=== PATIENT | male | born 1930 | race Caucasian/White ===

== ENCOUNTER 2017-01-30 19:44 | Inpatient (IN) | payer MEDICAID, MEDICARE ==
[~2017-01-30] VITALS: Ht 182.9 cm; Wt 70.3 kg
[2017-01-30] MEDS ORDERED: IPRATROPIUM NEB FS 0.5 MG/2.5 ML AMPUL.NEB NEB ONE (20:00)
[2017-01-30] MEDS ORDERED: ALBUTEROL FS 2.5 MG/3 ML VIAL.NEB CONTNEB ONE (20:00)
[2017-01-30 20:14] LABS: BASOPHILS # (AUTO) 0.4 /CMM (0.0-0.2); BASOPHILS % (AUTO) 3.4 % (0.0-2.0); EOSINOPHILS # (AUTO) 0.1 /CMM (0.0-0.7); EOSINOPHILS % (AUTO) 0.7 % (0.0-6.0); HEMATOCRIT 46 % (39-51); HEMOGLOBIN 14.9 g/dL (13.5-17.5); LYMPHOCYTES # (AUTO) 1.1 /CMM (0.8-4.8); LYMPHOCYTES % (AUTO) 9.9 % (20.0-44.0); MEAN CORPUSCULAR HEMOGLOBIN 24 PG (26.0-33.0); MEAN CORPUSCULAR HGB CONC 32 g/dl (31.0-36.0); MEAN CORPUSCULAR VOLUME 73 fL (80-96); MONOCYTES # (AUTO) 1.1 /CMM (0.1-1.30); MONOCYTES % (AUTO) 10.3 % (2.0-12.0); NEUTROPHILS % (AUTO) 75.7 % (43.0-81.0); PLATELET COUNT (AUTO) 357 /CMM (150-450); RDW COEFFICIENT OF VARIATION 17.9 (11.5-15.0); RED BLOOD CELL COUNT(AUTO) 6.33 MIL/uL (4.5-6.0); WHITE BLOOD COUNT (AUTO) 10.7 K/uL (4.3-11.0)
[2017-01-30 20:19] LABS: CALCIUM, SERUM 8.4 mg/dL (8.5-10.1); CARBON DIOXIDE 23 mmol/L (21-32); CHLORIDE 106 mmol/L (98-107); CREATININE 1.3 mg/dL (0.6-1.3); GLUCOSE 124 mg/dL (74-106); POTASSIUM 4.1 mmol/L (3.5-5.1); SODIUM SERUM 137 mmol/L (136-145); UREA NITROGEN, BLOOD 22 mg/dL (7-18)
[2017-01-30] MEDS ORDERED: DIVA500T2 PO (20:21)
[2017-01-30] MEDS ORDERED: ATOR80TA PO (20:21)
[2017-01-30] MEDS ORDERED: FOLI1TAB16 PO (20:21)
[2017-01-30] MEDS ORDERED: CLON0.5T4 PO (20:21)
[2017-01-30] MEDS ORDERED: RANI150T8 PO (20:21)
[2017-01-30] MEDS ORDERED: LISI-607 PO (20:21)
[2017-01-30] MEDS ORDERED: ZOLP5TAB7 PO (20:21)
[2017-01-30] MEDS ORDERED: TAMS0.4C34 PO (20:21)
[2017-01-30] MEDS ORDERED: FINA5TAB11 PO (20:21)
[2017-01-30] MEDS ORDERED: DIVA500T7 PO (20:21)
[2017-01-30] MEDS ORDERED: CARV12.52 PO (20:21)
[2017-01-30] MEDS ORDERED: DOCU-270 PO (20:21)
[2017-01-30] MEDS ORDERED: DONE10TA44 PO (20:21)
[2017-01-30 20:22] LABS: INR 1.25 (0.87-1.13); PROTHROMBIN TIME 13.2 SECS (9.5-12.7)
[2017-01-30 20:24] LABS: ALANINE AMINOTRANSFERASE 6 U/L (12-78); ALBUMIN 2.5 g/dL (3.4-5.0); ALKALINE PHOSPHATASE 71 U/L (46-116); ASPARTATE AMINOTRANSFERASE 15 U/L (15-37); BILIRUBIN,DIRECT 0.2 mg/dL (0.0-0.2); BILIRUBIN,TOTAL 1.1 mg/dL (0.2-1.0); TOTAL PROTEIN, SERUM 7.3 g/dL (6.4-8.2)
[2017-01-30 20:26] LABS: TROPONIN I 0.178 ng/mL (0.00-0.056)
[2017-01-30 20:55] LABS: BAND % (MANUAL) 5 % (0.0-5.0); EOSINOPHILS % (MANUAL) 1 % (0-4); LYMPHOCYTES % (MANUAL) 5 % (16-48); MONOCYTES % (MANUAL) 10 % (0-11.0); NEUTROPHILS % (MANUAL) 79 (42-76)
[2017-01-30] MEDS ORDERED: VANCOMYCIN 1 GM in IV D5W 250 ML IV ONE (21:00)
[2017-01-30] MEDS ORDERED: CEFEPIME 1 GM in IV D5W 50 ML IV ONE (21:00)
[2017-01-30] MEDS ORDERED: ASPIRIN 325 MG TABLET PO ONE (21:00)
[2017-01-30] MEDS ORDERED: ASPIRIN 325 MG TABLET ONE (22:05)
[2017-01-30] MEDS ORDERED: IV SET PRIMARY PUMP SET 1 EA INFUS.SET MC ONE (22:05)
[2017-01-30] MEDS ORDERED: DIVALPROEX SODIUM 250 MG TABLET.DR PO ONE ×2 (22:52→23:30)
[2017-01-30 23:03] LABS: APPEARANCE,URINE CLOUDY (CLEAR); BILIRUBIN,URINE 1+ (NEGATIVE); BLOOD, URINE 3+ Ery/uL (NEGATIVE); COLOR,URINE DARK YELLO (YELLOW); KETONES,URINE NEGATIVE (NEGATIVE); LEUKOCYTE ESTERASE ,URINE 2+ (NEGATIVE); NITRITE, URINE POSITIVE (NEGATIVE); PROTEIN,URINE 2+ mg/dl (NEGATIVE); UGLUCOSE NEGATIVE (NEGATIVE)
[2017-01-30 23:10] LABS: BACTERIA,URINE Rare /HPF (None Seen); WBC,URINE 81-100 /HPF (0-3)
[2017-01-30 23:11] LABS: SQUAMOUS EPITHELIAL CELL,UR Rare /HPF (None Seen)
[2017-01-30] MEDS ORDERED: ALBUTEROL FS 2.5 MG/3 ML VIAL.NEB ONE (23:29)
[2017-01-30] MEDS ORDERED: ENOXAPARIN SODIUM 30 MG/0.3 ML DISP.SYRIN SQ SCH (23:30)
[2017-01-30] MEDS ORDERED: ACETAMINOPHEN 325 MG TABLET PO PRN (23:30)
[2017-01-30] MEDS ORDERED: HYDROCODONE/APAP 5/325MG 1 EACH TABLET PO PRN (23:30)
[2017-01-30] MEDS ORDERED: MAGNESIUM HYDROXIDE 30 ML UDC PO PRN (23:30)
[2017-01-30] MEDS ORDERED: Z GUARD REMEDY 2 OZ OINT TP PRN (23:30)
[2017-01-30] MEDS ORDERED: MAG HYDROX/AL HYDROX/SIMETH 30 ML UDC PO PRN (23:30)
[2017-01-30] MEDS ORDERED: ONDANSETRON HCL/PF 4 MG/2 ML VIAL IVP PRN (23:30)
[2017-01-31] MEDS ORDERED: ENOXAPARIN SODIUM 30 MG/0.3 ML DISP.SYRIN ONE (00:01)
[2017-01-31] MEDS ORDERED: FUROSEMIDE 40 MG/4 ML VIAL ONE (00:01)
[2017-01-31] MEDS: DIVALPROEX SODIUM 500 MG TABLET.DR PO SCH ×5 (00:02→22:01)
[2017-01-31] MEDS: FUROSEMIDE 40 MG/4 ML VIAL IV SCH ×3 (00:07→18:52)
[2017-01-31] MEDS ORDERED: CEFTRIAXONE 1 G VIAL ONE (02:33)
[2017-01-31] MEDS ORDERED: IV D5W 50 ML IV ONE (02:33)
[2017-01-31] MEDS ORDERED: IV NS 0.9% 250 ML IV ONE (02:36)
[2017-01-31] MEDS ORDERED: IV SET PRIMARY PUMP SET 1 EA INFUS.SET MC ONE (02:36)
[2017-01-31] MEDS ORDERED: SECONDARY IV SET 1 EA INFUS.SET MC ONE (02:36)
[2017-01-31] MEDS: CEFTRIAXONE 1 G in IV D5W 50 ML IV SCH (02:49)
[2017-01-31] MEDS ORDERED: ALBUTEROL FS 2.5 MG/3 ML VIAL.NEB ONE (03:11)
[2017-01-31] MEDS: ALBUTEROL FS 2.5 MG/3 ML VIAL.NEB NEB SCH ×7 (03:21→23:35)
[2017-01-31 04:00] VITALS: BP 90/53
[2017-01-31 04:43] LABS: ABG BASE EXCESS -0.8 mmol/L; ABG OXYGEN SATURATION 94.3 % (92.0-98.5); ABG PCO2 25.3 mmHg (35.0-45.0); ABG PH 7.519 (7.350-7.450); AaDO2 97.8 mmHg; MetHb 0.3 % (0.0-1.5); O2Hb 93.1 % (94.0-97.0); SITE, ABG Left Radial; VENT MODE, BG NASAL CANNULA
[2017-01-31] MEDS ORDERED: ENOXAPARIN SODIUM 30 MG/0.3 ML DISP.SYRIN SQ SCH (07:22)
[2017-01-31 07:30] LABS: BASOPHILS # (AUTO) 0.1 /CMM (0.0-0.2); BASOPHILS % (AUTO) 0.5 % (0.0-2.0); EOSINOPHILS # (AUTO) 0.2 /CMM (0.0-0.7); EOSINOPHILS % (AUTO) 1.5 % (0.0-6.0); HEMATOCRIT 44 % (39-51); HEMOGLOBIN 14.3 g/dL (13.5-17.5); LYMPHOCYTES # (AUTO) 1.2 /CMM (0.8-4.8); LYMPHOCYTES % (AUTO) 10.3 % (20.0-44.0); MEAN CORPUSCULAR HEMOGLOBIN 24 PG (26.0-33.0); MEAN CORPUSCULAR HGB CONC 33 g/dl (31.0-36.0); MEAN CORPUSCULAR VOLUME 74 fL (80-96); MONOCYTES # (AUTO) 1.2 /CMM (0.1-1.30); MONOCYTES % (AUTO) 10.3 % (2.0-12.0); NEUTROPHILS # (AUTO) 8.7 /CMM (1.8-8.9); NEUTROPHILS % (AUTO) 77.4 % (43.0-81.0); PLATELET COUNT (AUTO) 339 /CMM (150-450); RDW COEFFICIENT OF VARIATION 19.4 (11.5-15.0); RED BLOOD CELL COUNT(AUTO) 5.93 MIL/uL (4.5-6.0); WHITE BLOOD COUNT (AUTO) 11.3 K/uL (4.3-11.0)
[2017-01-31 08:00] VITALS: BP_SYST 110; BP_SYST 87; BP_DIAS 51; BP_DIAS 67
[2017-01-31 08:00] LABS: CALCIUM, SERUM 8.1 mg/dL (8.5-10.1); CARBON DIOXIDE 25 mmol/L (21-32); CHLORIDE 107 mmol/L (98-107); CREATININE 1.4 mg/dL (0.6-1.3); GLUCOSE 101 mg/dL (74-106); MAGNESIUM 1.9 mg/dL (1.8-2.4); SODIUM SERUM 142 mmol/L (136-145); UREA NITROGEN, BLOOD 22 mg/dL (7-18)
[2017-01-31 08:18] LABS: THYROID STIMULATING HORMONE 1.25 uIU/mL (0.358-3.74)
[2017-01-31 08:34] LABS: BAND % (MANUAL) 2 % (0.0-5.0); EOSINOPHILS % (MANUAL) 2 % (0-4); LYMPHOCYTES % (MANUAL) 14 % (16-48); MONOCYTES % (MANUAL) 9 % (0-11.0); NEUTROPHILS % (MANUAL) 73 (42-76)
[2017-01-31 12:00] VITALS: BP 122/67
[2017-01-31] MEDS: TAMSULOSIN 0.4 MG CAP.SR.24H PO SCH (12:31)
[2017-01-31] MEDS: DOCUSATE SODIUM 100 MG CAPSULE PO SCH ×2 (12:31→18:53)
[2017-01-31] MEDS: CARVEDILOL 12.5 MG TABLET PO SCH ×2 (12:32→18:53)
[2017-01-31] MEDS: FINASTERIDE (5 MG) 5 MG TABLET PO SCH (12:33)
[2017-01-31] MEDS: FOLIC ACID 1 MG TABLET PO SCH (12:33)
[2017-01-31] MEDS: PANTOPRAZOLE 40 MG TABLET.DR PO SCH (12:33)
[2017-01-31] MEDS: FAMOTIDINE (20 MG) 20 MG TABLET PO SCH (12:33)
[2017-01-31] MEDS: LISINOPRIL (5MG) 5 MG TABLET PO SCH (12:38)
[2017-01-31 16:00] VITALS: BP 100/62
[2017-01-31 19:07] VITALS: BP 110/62
[2017-01-31 20:00] VITALS: BP 111/65
[2017-01-31] MEDS: ZOLPIDEM TARTRATE 5 MG TABLET PO SCH (22:00)
[2017-01-31] MEDS: DONEPEZIL 5 MG TABLET PO SCH (22:00)
[2017-01-31] MEDS ORDERED: ATORVASTATIN 40 MG TABLET PO SCH (22:00)
[2017-01-31] MEDS: clonazePAM 0.5 MG TABLET PO SCH ×2 (22:01)
[2017-02-01] VITALS (7 sets, daily range): BP systolic 89–122; BP diastolic 53–70
[2017-02-01] MEDS: CEFTRIAXONE 1 G in IV D5W 50 ML IV SCH (02:15)
[2017-02-01] MEDS ORDERED: IV NS 0.9% 250 ML IV ONE (02:16)
[2017-02-01] MEDS: ALBUTEROL FS 2.5 MG/3 ML VIAL.NEB NEB SCH ×6 (03:32→23:24)
[2017-02-01 07:31] LABS: EOSINOPHILS # (AUTO) 0.1 /CMM (0.0-0.7); EOSINOPHILS % (AUTO) 0.8 % (0.0-6.0); HEMATOCRIT 45 % (39-51); HEMOGLOBIN 14.7 g/dL (13.5-17.5); LYMPHOCYTES # (AUTO) 0.7 /CMM (0.8-4.8); LYMPHOCYTES % (AUTO) 6.3 % (20.0-44.0); MEAN CORPUSCULAR HEMOGLOBIN 24 PG (26.0-33.0); MEAN CORPUSCULAR HGB CONC 33 g/dl (31.0-36.0); MEAN CORPUSCULAR VOLUME 74 fL (80-96); MONOCYTES # (AUTO) 0.9 /CMM (0.1-1.30); MONOCYTES % (AUTO) 7.5 % (2.0-12.0); NEUTROPHILS # (AUTO) 10.1 /CMM (1.8-8.9); NEUTROPHILS % (AUTO) 85.4 % (43.0-81.0); PLATELET COUNT (AUTO) 385 /CMM (150-450); RDW COEFFICIENT OF VARIATION 19.2 (11.5-15.0); RED BLOOD CELL COUNT(AUTO) 6.11 MIL/uL (4.5-6.0); WHITE BLOOD COUNT (AUTO) 11.8 K/uL (4.3-11.0)
[2017-02-01 08:05] LABS: CALCIUM, SERUM 8.2 mg/dL (8.5-10.1); CARBON DIOXIDE 25 mmol/L (21-32); CHLORIDE 105 mmol/L (98-107); CREATININE 1.2 mg/dL (0.6-1.3); GLUCOSE 106 mg/dL (74-106); PHOSPHORUS 3.5 mg/dL (2.5-4.9); POTASSIUM 3.8 mmol/L (3.5-5.1); SODIUM SERUM 142 mmol/L (136-145); UREA NITROGEN, BLOOD 25 mg/dL (7-18)
[2017-02-01] MEDS: DIVALPROEX SODIUM 500 MG TABLET.DR PO SCH ×4 (08:12→22:11)
[2017-02-01] MEDS: FAMOTIDINE (20 MG) 20 MG TABLET PO SCH (08:12)
[2017-02-01] MEDS: TAMSULOSIN 0.4 MG CAP.SR.24H PO SCH (08:12)
[2017-02-01] MEDS: LISINOPRIL (5MG) 5 MG TABLET PO SCH (08:13)
[2017-02-01] MEDS: CARVEDILOL 12.5 MG TABLET PO SCH ×2 (08:13→17:00)
[2017-02-01] MEDS: FINASTERIDE (5 MG) 5 MG TABLET PO SCH (08:13)
[2017-02-01] MEDS: PANTOPRAZOLE 40 MG TABLET.DR PO SCH (08:13)
[2017-02-01] MEDS: FOLIC ACID 1 MG TABLET PO SCH (08:13)
[2017-02-01] MEDS: DOCUSATE SODIUM 100 MG CAPSULE PO SCH ×2 (08:13→17:26)
[2017-02-01] MEDS: FUROSEMIDE 40 MG/4 ML VIAL IV SCH (08:14)
[2017-02-01 09:41] LABS: BAND % (MANUAL) 1 % (0.0-5.0); LYMPHOCYTES % (MANUAL) 10 % (16-48); MONOCYTES % (MANUAL) 8 % (0-11.0); NEUTROPHILS % (MANUAL) 81 (42-76)
[2017-02-01] MEDS: FUROSEMIDE 40 MG TABLET PO SCH ×2 (10:00→10:18)
[2017-02-01] MEDS: POTASSIUM CHLORIDE 20 MEQ TAB.PRT.SR PO SCH (10:18)
[2017-02-01 10:23] LABS: *SPE A/G RATIO 0.7 (0.7-1.7); *SPE ALBUMIN 2.9 g/dL (2.9-4.4); *SPE ALPHA-1-GLOBULIN 0.4 g/dL (0.0-0.4); *SPE M-SPIKE Not Observed g/dL (Not Observed); *SPE PROTEIN TOTAL 6.9 g/dL (6.0-8.5); *SPEGAMMA GLOBULIN 1.6 g/dL (0.4-1.8)
[2017-02-01] MEDS: ENOXAPARIN SODIUM 40 MG/0.4 ML DISP.SYRIN SQ SCH (20:36)
[2017-02-01] MEDS: MEROPENEM 1 G in IV NS 0.9% 100 ML IV SCH (20:37)
[2017-02-01] MEDS ORDERED: SECONDARY IV SET 1 EA INFUS.SET MC ONE (20:38)
[2017-02-01] MEDS: ZOLPIDEM TARTRATE 5 MG TABLET PO SCH (22:00)
[2017-02-01] MEDS: DONEPEZIL 5 MG TABLET PO SCH (22:11)
[2017-02-01] MEDS: clonazePAM 0.5 MG TABLET PO SCH (22:11)
[2017-02-02] VITALS (7 sets, daily range): BP systolic 92–126; BP diastolic 56–72
[2017-02-02] MEDS: ALBUTEROL FS 2.5 MG/3 ML VIAL.NEB NEB SCH ×6 (03:29→23:10)
[2017-02-02 06:43] LABS: BASOPHILS % (AUTO) 0.1 % (0.0-2.0); EOSINOPHILS % (AUTO) 0.2 % (0.0-6.0); HEMATOCRIT 46 % (39-51); HEMOGLOBIN 14.5 g/dL (13.5-17.5); LYMPHOCYTES # (AUTO) 0.5 /CMM (0.8-4.8); LYMPHOCYTES % (AUTO) 4.8 % (20.0-44.0); MEAN CORPUSCULAR HEMOGLOBIN 23 PG (26.0-33.0); MEAN CORPUSCULAR HGB CONC 32 g/dl (31.0-36.0); MEAN CORPUSCULAR VOLUME 74 fL (80-96); MONOCYTES # (AUTO) 1.1 /CMM (0.1-1.30); MONOCYTES % (AUTO) 10.1 % (2.0-12.0); NEUTROPHILS # (AUTO) 9.2 /CMM (1.8-8.9); NEUTROPHILS % (AUTO) 84.8 % (43.0-81.0); PLATELET COUNT (AUTO) 410 /CMM (150-450); RDW COEFFICIENT OF VARIATION 19.5 (11.5-15.0); RED BLOOD CELL COUNT(AUTO) 6.18 MIL/uL (4.5-6.0); WHITE BLOOD COUNT (AUTO) 10.8 K/uL (4.3-11.0)
[2017-02-02 07:07] LABS: ALANINE AMINOTRANSFERASE 12 U/L (12-78); ALBUMIN 2.2 g/dL (3.4-5.0); ALKALINE PHOSPHATASE 75 U/L (46-116); ASPARTATE AMINOTRANSFERASE 15 U/L (15-37); BILIRUBIN,TOTAL 0.9 mg/dL (0.2-1.0); CALCIUM, SERUM 8.2 mg/dL (8.5-10.1); CARBON DIOXIDE 30 mmol/L (21-32); CHLORIDE 104 mmol/L (98-107); CREATININE 1.1 mg/dL (0.6-1.3); GLUCOSE 118 mg/dL (74-106); MAGNESIUM 2.3 mg/dL (1.8-2.4); POTASSIUM 3.8 mmol/L (3.5-5.1); SODIUM SERUM 140 mmol/L (136-145); TOTAL PROTEIN, SERUM 7.1 g/dL (6.4-8.2); UREA NITROGEN, BLOOD 27 mg/dL (7-18)
[2017-02-02 08:50] LABS: BAND % (MANUAL) 1 % (0.0-5.0); EOSINOPHILS % (MANUAL) 1 % (0-4); LYMPHOCYTES % (MANUAL) 9 % (16-48); MONOCYTES % (MANUAL) 6 % (0-11.0); NEUTROPHILS % (MANUAL) 83 (42-76)
[2017-02-02] MEDS: MEROPENEM 1 G in IV NS 0.9% 100 ML IV SCH ×2 (09:55→21:15)
[2017-02-02] MEDS: PANTOPRAZOLE 40 MG TABLET.DR PO SCH (09:55)
[2017-02-02] MEDS: TAMSULOSIN 0.4 MG CAP.SR.24H PO SCH (09:57)
[2017-02-02] MEDS: FINASTERIDE (5 MG) 5 MG TABLET PO SCH (09:57)
[2017-02-02] MEDS: POTASSIUM CHLORIDE 20 MEQ TAB.PRT.SR PO SCH (09:57)
[2017-02-02] MEDS: DIVALPROEX SODIUM 500 MG TABLET.DR PO SCH ×4 (09:57→21:16)
[2017-02-02] MEDS: FUROSEMIDE 40 MG TABLET PO SCH (09:57)
[2017-02-02] MEDS: FAMOTIDINE (20 MG) 20 MG TABLET PO SCH (09:57)
[2017-02-02] MEDS: DOCUSATE SODIUM 100 MG CAPSULE PO SCH ×2 (09:57→18:00)
[2017-02-02] MEDS: FOLIC ACID 1 MG TABLET PO SCH (09:57)
[2017-02-02] MEDS: CARVEDILOL 12.5 MG TABLET PO SCH ×2 (09:57→18:00)
[2017-02-02] MEDS: LISINOPRIL (5MG) 5 MG TABLET PO SCH (09:58)
[2017-02-02] MEDS: ZOLPIDEM TARTRATE 5 MG TABLET PO SCH (21:16)
[2017-02-02] MEDS: clonazePAM 0.5 MG TABLET PO SCH (21:16)
[2017-02-02] MEDS: DONEPEZIL 5 MG TABLET PO SCH (21:16)
[2017-02-02] MEDS: ENOXAPARIN SODIUM 40 MG/0.4 ML DISP.SYRIN SQ SCH (21:17)
[2017-02-03] VITALS (7 sets, daily range): BP systolic 97–108; BP diastolic 49–67
[2017-02-03] MEDS: ALBUTEROL FS 2.5 MG/3 ML VIAL.NEB NEB SCH ×6 (02:33→23:30)
[2017-02-03] MEDS ORDERED: IV NS 0.9% 250 ML IV ONE (04:57)
[2017-02-03] MEDS: PANTOPRAZOLE 40 MG TABLET.DR PO SCH (07:55)
[2017-02-03] MEDS: DIVALPROEX SODIUM 500 MG TABLET.DR PO SCH ×4 (07:56→22:02)
[2017-02-03] MEDS: FINASTERIDE (5 MG) 5 MG TABLET PO SCH (08:36)
[2017-02-03] MEDS: TAMSULOSIN 0.4 MG CAP.SR.24H PO SCH (08:36)
[2017-02-03] MEDS: FAMOTIDINE (20 MG) 20 MG TABLET PO SCH (08:36)
[2017-02-03] MEDS: FOLIC ACID 1 MG TABLET PO SCH (08:37)
[2017-02-03] MEDS: CARVEDILOL 12.5 MG TABLET PO SCH ×2 (08:37→16:58)
[2017-02-03] MEDS: FUROSEMIDE 40 MG TABLET PO SCH (08:37)
[2017-02-03] MEDS: DOCUSATE SODIUM 100 MG CAPSULE PO SCH ×2 (08:37→16:57)
[2017-02-03] MEDS: POTASSIUM CHLORIDE 20 MEQ TAB.PRT.SR PO SCH (08:37)
[2017-02-03] MEDS: LISINOPRIL (5MG) 5 MG TABLET PO SCH (08:38)
[2017-02-03] MEDS: MEROPENEM 1 G in IV NS 0.9% 100 ML IV SCH ×2 (09:00→22:01)
[2017-02-03] MEDS: clonazePAM 0.5 MG TABLET PO SCH (22:02)
[2017-02-03] MEDS: DONEPEZIL 5 MG TABLET PO SCH (22:02)
[2017-02-03] MEDS: ENOXAPARIN SODIUM 40 MG/0.4 ML DISP.SYRIN SQ SCH (22:03)
[2017-02-03] MEDS: ZOLPIDEM TARTRATE 5 MG TABLET PO SCH (22:03)
[2017-02-04 00:40] VITALS: BP 106/60
[2017-02-04] MEDS: ALBUTEROL FS 2.5 MG/3 ML VIAL.NEB NEB SCH ×5 (03:25→19:11)
[2017-02-04 04:15] VITALS: BP 107/56
[2017-02-04 08:00] VITALS: BP 102/62
[2017-02-04] MEDS: FAMOTIDINE (20 MG) 20 MG TABLET PO SCH (08:06)
[2017-02-04] MEDS: FOLIC ACID 1 MG TABLET PO SCH (08:06)
[2017-02-04] MEDS: DIVALPROEX SODIUM 500 MG TABLET.DR PO SCH (08:06)
[2017-02-04] MEDS: FUROSEMIDE 40 MG TABLET PO SCH (08:06)
[2017-02-04] MEDS: DOCUSATE SODIUM 100 MG CAPSULE PO SCH ×2 (08:06→16:42)
[2017-02-04] MEDS: PANTOPRAZOLE 40 MG TABLET.DR PO SCH (08:06)
[2017-02-04] MEDS: POTASSIUM CHLORIDE 20 MEQ TAB.PRT.SR PO SCH (08:06)
[2017-02-04] MEDS: TAMSULOSIN 0.4 MG CAP.SR.24H PO SCH (08:06)
[2017-02-04] MEDS: CARVEDILOL 12.5 MG TABLET PO SCH ×2 (08:07→16:43)
[2017-02-04] MEDS: MEROPENEM 1 G in IV NS 0.9% 100 ML IV SCH ×2 (08:07→20:10)
[2017-02-04] MEDS: LISINOPRIL (5MG) 5 MG TABLET PO SCH (08:07)
[2017-02-04] MEDS: FINASTERIDE (5 MG) 5 MG TABLET PO SCH (08:08)
[2017-02-04] MEDS: DIVALPROEX SODIUM 125 MG CAP.SPRINK PO SCH ×2 (11:59→16:42)
[2017-02-04 12:00] VITALS: BP 104/61
[2017-02-04] MEDS ORDERED: MERO1VIA IV (15:16)
[2017-02-04 16:00] VITALS: BP 113/65
[2017-02-04 20:00] VITALS: BP 104/62
[2017-02-04] MEDS ORDERED: DIVALPROEX SODIUM 125 MG CAP.SPRINK PO SCH (22:00)
== END 2017-02-04 20:56 | DRG 137 ==
LOC: ER 19:47 → TELE1 21:21
PROVIDERS: ADMIT Internal Medicine; ATTEND Internal Medicine
DX: J15.6 Pneumonia due to other Gram-negative bacteria (principal); I21.4 Non-ST elevation (NSTEMI) myocardial infarction; J96.01 Acute respiratory failure with hypoxia; G93.41 Metabolic encephalopathy; I50.21 Acute systolic (congestive) heart failure; R13.10 Dysphagia, unspecified; J15.9 Unspecified bacterial pneumonia; I11.0 Hypertensive heart disease with heart failure; F03.90 Unspecified dementia, unspecified severity, without behavioral disturbance, psychotic disturbance, mood disturbance, and anxiety; N39.0 Urinary tract infection, site not specified; Z95.1 Presence of aortocoronary bypass graft; F41.9 Anxiety disorder, unspecified; I25.10 Atherosclerotic heart disease of native coronary artery without angina pectoris; Z16.12 Extended spectrum beta lactamase (ESBL) resistance; N40.1 Benign prostatic hyperplasia with lower urinary tract symptoms; B96.20 Unspecified Escherichia coli [E. coli] as the cause of diseases classified elsewhere; F32.9 Major depressive disorder, single episode, unspecified; G40.909 Epilepsy, unspecified, not intractable, without status epilepticus; Z86.718 Personal history of other venous thrombosis and embolism; Z86.711 Personal history of pulmonary embolism
CPT/HCPCS: 36415; 36600; 71010-TC; 80048-TC; 80053-TC; 80061-TC; 80076-TC; 80164-TC; 81000-TC; 82306; 82803-TC; 83605-TC; 83735-TC; 83880; 84100-TC; 84155; 84165; 84439-TC; 84443-TC; 84484-TC; 85025-TC; 85730-TC; 87040-TC; 87081-TC; 87086-TC; 87186-TC; 92526; 92611-TC; 93307-TC; 94799-TC; A4606; A6403; J0692; J0696; J1650; J1940; J2185; J3370; J7030; J7050; J7060; Z7610

== ENCOUNTER 2017-02-16 13:54 | Inpatient (IN) | payer MEDICAID, MEDICARE ==
[~2017-02-16] VITALS: Ht 170.2 cm; Wt 70.3 kg
[~2017-02-16 13:54] MED LIST: ATOR80TA PO; CARV12.52 PO; CLON0.5T4 PO; DIVA500T2 PO; DIVA500T7 PO; DOCU-270 PO; DONE10TA44 PO; FINA5TAB11 PO; FOLI1TAB16 PO; LISI-607 PO; MERO1VIA IV; RANI150T8 PO; TAMS0.4C34 PO; ZOLP5TAB7 PO
--- NOTE | 2017-02-16 13:54 | NUR ---
ROSA M 89 FROM [facility] FOR SOB, RECTAL PALK=201.9 PATIENT IS BEING TREATED FOR PNA AND TAKING ZOSYN X 5 DAYS. PLACED ON MONITOR. AWAITING MD ORDER.
--- NOTE | 2017-02-16 14:00 | NUR ---
PT HAS MARTIN CATH FR 16 LUMBER HACKER .DR OTERO MADE AWARE
--- NOTE | 2017-02-16 14:00 | NUR ---
PT HAS RHAND #22 IV ACCESS CARCASS WASHER. STARTED LEFT HAND #20 IV ACCESS. BLOOD SAMPLE COLLECTED SENT TO LAB
[2017-02-16 14:29] LABS: BASOPHILS # (AUTO) 0.5 /CMM (0.0-0.2); BASOPHILS % (AUTO) 4.2 % (0.0-2.0); EOSINOPHILS % (AUTO) 0.4 % (0.0-6.0); HEMATOCRIT 42 % (39-51); HEMOGLOBIN 13.5 g/dL (13.5-17.5); LYMPHOCYTES # (AUTO) 1.3 /CMM (0.8-4.8); MEAN CORPUSCULAR HEMOGLOBIN 24 PG (26.0-33.0); MEAN CORPUSCULAR HGB CONC 32 g/dl (31.0-36.0); MEAN CORPUSCULAR VOLUME 73 fL (80-96); MONOCYTES # (AUTO) 0.4 /CMM (0.1-1.30); MONOCYTES % (AUTO) 3.7 % (2.0-12.0); NEUTROPHILS % (AUTO) 80.7 % (43.0-81.0); PLATELET COUNT (AUTO) 622 /CMM (150-450); RDW COEFFICIENT OF VARIATION 19.7 (11.5-15.0); RED BLOOD CELL COUNT(AUTO) 5.74 MIL/uL (4.5-6.0); WHITE BLOOD COUNT (AUTO) 12.2 K/uL (4.3-11.0)
[2017-02-16 14:34] LABS: CARBON DIOXIDE 25 mmol/L (21-32); CHLORIDE 104 mmol/L (98-107); CREATININE 1.8 mg/dL (0.6-1.3); GLUCOSE 163 mg/dL (74-106); SODIUM SERUM 139 mmol/L (136-145); UREA NITROGEN, BLOOD 40 mg/dL (7-18)
[2017-02-16 14:38] LABS: INR 1.2 (0.87-1.13); PROTHROMBIN TIME 12.6 SECS (9.5-12.7)
[2017-02-16 14:39] LABS: ALANINE AMINOTRANSFERASE 28 U/L (12-78); ALBUMIN 1.7 g/dL (3.4-5.0); ALKALINE PHOSPHATASE 88 U/L (46-116); ASPARTATE AMINOTRANSFERASE 42 U/L (15-37); BILIRUBIN,DIRECT 0.2 mg/dL (0.0-0.2); BILIRUBIN,TOTAL 0.5 mg/dL (0.2-1.0); TOTAL PROTEIN, SERUM 7.7 g/dL (6.4-8.2)
[2017-02-16 14:42] LABS: TROPONIN I 0.139 ng/mL (0.00-0.056)
--- NOTE | 2017-02-16 14:50 | NUR ---
URINE SAMPLE COLLECTED SENT TO LAB
[2017-02-16 14:55] LABS: APPEARANCE,URINE Cloudy (CLEAR); BILIRUBIN,URINE Negative (NEGATIVE); BLOOD, URINE Moderate Ery/uL (NEGATIVE); COLOR,URINE Yellow (YELLOW); KETONES,URINE Trace (NEGATIVE); LEUKOCYTE ESTERASE ,URINE Negative (NEGATIVE); NITRITE, URINE Negative (NEGATIVE); PH,URINE 5.5 (5.0-8.0); PROTEIN,URINE 100 mg/dl (NEGATIVE); UGLUCOSE Negative (NEGATIVE)
[2017-02-16] MEDS ORDERED: MEROPENEM 1,000 MG in IV NS 0.9% 100 ML IV ONE (15:00)
[2017-02-16] MEDS ORDERED: IV NS 0.9% 1,000 ML IV ONE ×2 (15:00→15:30)
[2017-02-16] MEDS ORDERED: IV SET PRIMARY PUMP SET 1 EA INFUS.SET MC ONE ×3 (15:02→16:14)
[2017-02-16] MEDS ORDERED: IV NS 0.9% 1,000 ML ONE ×2 (15:02→15:44)
--- NOTE | 2017-02-16 15:20 | NUR ---
CALLED NURSING SUP. FOR CHANG BED
[2017-02-16 15:29] LABS: WBC,URINE 0-2 /HPF (0-3)
--- NOTE | 2017-02-16 15:29 | NUR ---
CALLED DR.SHAUN ROSS (PCP), LEFT MESSAGE ON VOICEMAIL
[2017-02-16 15:30] LABS: URIC ACID CRYSTALS,URINE Many /HPF (None Seen)
[2017-02-16] MEDS ORDERED: VANCOMYCIN 1 GM in IV D5W 250 ML IV ONE ×2 (15:30→17:30)
[2017-02-16] MEDS ORDERED: IV NS 0.9% 250 ML IV ONE ×2 (15:30→16:14)
[2017-02-16 15:31] LABS: BACTERIA,URINE Moderate /HPF (None Seen); SQUAMOUS EPITHELIAL CELL,UR Rare /HPF (None Seen); YEAST,URINE Moderate /HPF (None Seen)
--- NOTE | 2017-02-16 15:46 | NUR ---
RECEIVED CALL FROM [facility] TRANSFER LINE, SPOKE WITH LATA, SHE ASKED ME TO FAX HER A FACESHEET TO [phone], PHONE NUMBER TO REACH HER IS [phone]
--- NOTE | 2017-02-16 15:58 | NUR ---
EPIC PAGED, DR.SIMONA Diaz COCKTAIL LOUNGE MANAGER
[2017-02-16 16:05] LABS: BAND % (MANUAL) 2 % (0.0-5.0); LYMPHOCYTES % (MANUAL) 5 % (16-48); MONOCYTES % (MANUAL) 5 % (0-11.0); NEUTROPHILS % (MANUAL) 88 (42-76)
--- NOTE | 2017-02-16 16:13 | NUR ---
GAVE REPORT TO LATASHA OVALLE TELE. ADMITTING DX SEPSIS . TRANSFER VIA ACLS PROTOCOL. DR DEWITT
[2017-02-16 16:40] VITALS: BP 109/55
--- NOTE | 2017-02-16 17:10 | NUR ---
Received patient from ER with Dx of sepsis, PNA. Vitals stable, saturation 98% on NRB mask, afebrile 97.9 HR 120's, Atrial Fib on the monitor. Breathing WNL, no distress. Lungs sound diminished on auscultation, patient coughing and encouraged to deep breath and cough, needs reinforcement. Patient alert but unable to assess orientation, patient speaks foreign language but able to say "no pain". Kept on non rebreather and ABG ordered. Skin intact, only perineal excoriation, sacral redness. Finished 2L NS started from ER with currently running vancomycin IVPB. Dr. Collado at bedside and evaluating the patient.
[2017-02-16] MEDS ORDERED: ONDANSETRON HCL/PF 4 MG/2 ML VIAL IVP PRN (17:30)
[2017-02-16] MEDS ORDERED: IV NS 0.9% 1,000 ML BAG IV ONE (17:30)
[2017-02-16] MEDS ORDERED: LORAZEPAM 1 MG TABLET PO PRN (17:30)
[2017-02-16] MEDS ORDERED: ZOLPIDEM TARTRATE 5 MG TABLET PO PRN (17:30)
[2017-02-16] MEDS ORDERED: FEE PK DOSING 1 MIN EA MC ONE (17:54)
[2017-02-16] MEDS: DIVALPROEX SODIUM 500 MG TABLET.DR PO SCH ×2 (18:00→21:12)
[2017-02-16] MEDS: ZOLPIDEM TARTRATE 5 MG TABLET PO SCH (18:00)
[2017-02-16 18:10] LABS: IRON, SERUM 40 ug/dl (50-175); TOTAL IRON BINDING CAPACITY 173 ug/dl (250-450)
[2017-02-16] MEDS ORDERED: SECONDARY IV SET 1 EA INFUS.SET MC ONE (18:22)
[2017-02-16] MEDS: PIPERACILLIN /TAZOBACTAM 3.375 G in IV D5W 50 ML IV SCH ×2 (18:27→23:38)
[2017-02-16] MEDS: FLUCONAZOLE IN NS 100 MG in PREMIX 1 EA IV SCH ×2 (18:29)
[2017-02-16 19:14] LABS: ABG BASE EXCESS 0.8 mmol/L; ABG OXYGEN SATURATION 93.1 % (92.0-98.5); ABG PCO2 32.6 mmHg (35.0-45.0); ABG PH 7.479 (7.350-7.450); ABG PO2 65.6 mmHg (75.0-100.0); COHb 0.9 % (0.5-1.5); MetHb 0.8 % (0.0-1.5); O2Hb 91.5 % (94.0-97.0); SITE, ABG Right Radial; VENT MODE, BG NASAL CANNULA
--- NOTE | 2017-02-16 19:18 | NUR ---
Patient placed on nasal cannula 6L for 2 hours and ABG done. result PH 7.47 po2 65.6 PCO2 32.6 HCO3 23.7. Patient now placed on face mask 7L. Saturation > 95%.
[2017-02-16 19:29] LABS: CALCIUM, SERUM 7.4 mg/dL (8.5-10.1); CARBON DIOXIDE 27 mmol/L (21-32); CHLORIDE 105 mmol/L (98-107); CREATININE 1.7 mg/dL (0.6-1.3); GLUCOSE 113 mg/dL (74-106); POTASSIUM 3.9 mmol/L (3.5-5.1); SODIUM SERUM 139 mmol/L (136-145); UREA NITROGEN, BLOOD 39 mg/dL (7-18)
[2017-02-16 19:35] LABS: ALANINE AMINOTRANSFERASE 28 U/L (12-78); ALBUMIN 1.5 g/dL (3.4-5.0); ALKALINE PHOSPHATASE 78 U/L (46-116); ASPARTATE AMINOTRANSFERASE 44 U/L (15-37); BILIRUBIN,DIRECT 0.1 mg/dL (0.0-0.2); BILIRUBIN,TOTAL 0.4 mg/dL (0.2-1.0)
--- NOTE | 2017-02-16 19:46 | NUR ---
CHANG RN NOTE LAB [facility] CALLED AND INFORMED ME THAT LACTIC ACID 2.1, PT IS GETTING NS IV FLUIDS SEPSIS PROTOCOL.
[2017-02-16 20:00] VITALS: BP 97/76
--- NOTE | 2017-02-16 20:00 | NUR ---
CHANG RN NOTE PT IN BED ASLEEP, AROUSABLE. UNCLEAR WHEN TALKS. ON FACE MASK O2 7L. NO DISTRESS OR DISOMFORT NOTED. DENIES PAIN. IVF NS INFUSING PER SEPSIS PROTOCOL NO S/S OF INFILTRATION NOTED. ON TELE UNCONTROLLED A FIB HR 110'S IN ISOLATION FOR ESBL URINE. ISOLATION PRECAUTIONS TAKEN. F/C INTACT AND PATENT DRAINING YELLOWISH COLOR URINE. REPOSITION HIM FOR SKIN MANAGEMENT AND WILL DO EVERY 2 HRS. SIDE RAILS UP X 3 AND CALL LIGHT WITHIN REACH. VSS. CONTINUE TO MONITOR HIM.
[2017-02-16] MEDS: DONEPEZIL 5 MG TABLET PO SCH (21:12)
[2017-02-16] MEDS: clonazePAM 0.5 MG TABLET PO SCH (21:13)
[2017-02-16] MEDS ORDERED: SIMVASTATIN 20 MG TABLET PO SCH (22:00)
--- NOTE | 2017-02-16 22:34 | NUR ---
CHANG RN NOTE PT NOTED LITTLE RESTLESS AND IN PAIN. UNABLE TO EXPLAIN WHERE. CONFUSED. MORPHINE SULFATE 2 MG IVP GIVEN. BP 111/80. CONTINUE TO MONITOR HIM. IVF NS INFUSING PER SEPSIS PROTOCOL. NO S/S OF INFILTRATION NOTED.
--- NOTE | 2017-02-16 23:00 | NUR ---
CHANG RN NOTE PAIN SUBSIDED BUT PT ON TELE A FIB HR KEPT ON GOING UP AND DOWN 151 HIGHEST. INFORMED WINDOW SHADE CLOTH SEWER MIGUEL, NO NEW ORDER GIVEN. CONTINUE TO MONITOR HIM.
[2017-02-16] MEDS: MORPHINE SULFATE INJ 2 MG/ML DISP.SYRIN IV PRN (23:35)
[2017-02-17] VITALS: BP 96/62
[2017-02-17 04:00] VITALS: BP 118/77
--- NOTE | 2017-02-17 05:00 | NUR ---
CHANG RN NOTE NOTED VERY LITTLE OUTPUT IN F/C, NO BLADDER DISTENTION NOTED. RASHID RIVERA INFORMED BLADDER SCAN DONE ONLY 300 ML NOTED ON THE SCAN. NO NEW ORDER RECEIVED FROM RASHID RIVERA.
[2017-02-17] MEDS: PIPERACILLIN /TAZOBACTAM 3.375 G in IV D5W 50 ML IV SCH (05:37)
--- NOTE | 2017-02-17 06:44 | NUR ---
CHANG RN NOTE PT IN BED ASLEEP, EASILY AROUSABLE. NO DISTRESS NOTED. DENIES PAIN. ON TELE A FIB UNCONTROLLED HR 122'S. F/C INTACT AND PATENT DRAINING YELLOWISH COLOR URINE. ALSO NOTE MARTIN CATH IS LEAKING. SOAKING CHUCKS NOTED. INCONTINENCE CARE GIVEN. SIDE RAILS UP X 2 AND CALL LIGHT WITHIN REACH. WILL ENDORSE TO DAY SHIFT NURSE FOR CONTINUE TO CARE.
--- NOTE | 2017-02-17 07:07 | NUR ---
CHANG RN NOTE REMOVED THE OLD F/C DUE TO NOTED ITS LEAKING. TRIED TO INSERT NEW F/C FR 16 BUT UNABLE. ENDORSE TO DAY SHIFT NURSE TO FOLLOW UP.
[2017-02-17 07:25] LABS: BASOPHILS % (AUTO) 0.1 % (0.0-2.0); EOSINOPHILS % (AUTO) 0.2 % (0.0-6.0); HEMATOCRIT 41 % (39-51); LYMPHOCYTES # (AUTO) 0.6 /CMM (0.8-4.8); LYMPHOCYTES % (AUTO) 2.8 % (20.0-44.0); MEAN CORPUSCULAR HEMOGLOBIN 24 PG (26.0-33.0); MEAN CORPUSCULAR HGB CONC 32 g/dl (31.0-36.0); MEAN CORPUSCULAR VOLUME 74 fL (80-96); MONOCYTES # (AUTO) 0.6 /CMM (0.1-1.30); NEUTROPHILS # (AUTO) 18.7 /CMM (1.8-8.9); NEUTROPHILS % (AUTO) 93.9 % (43.0-81.0); PLATELET COUNT (AUTO) 505 /CMM (150-450); RED BLOOD CELL COUNT(AUTO) 5.53 MIL/uL (4.5-6.0)
[2017-02-17] MEDS: DIVALPROEX SODIUM 500 MG TABLET.DR PO SCH ×4 (07:30→21:39)
[2017-02-17 07:43] LABS: AMYLASE 33 U/L (25-115); CALCIUM, SERUM 7.6 mg/dL (8.5-10.1); CARBON DIOXIDE 24 mmol/L (21-32); CHLORIDE 109 mmol/L (98-107); CREATININE 1.2 mg/dL (0.6-1.3); GLUCOSE 109 mg/dL (74-106); LIPASE 83 U/L (73-393); MAGNESIUM 2.6 mg/dL (1.8-2.4); PHOSPHORUS 3.4 mg/dL (2.5-4.9); POTASSIUM 3.9 mmol/L (3.5-5.1); SODIUM SERUM 142 mmol/L (136-145); UREA NITROGEN, BLOOD 34 mg/dL (7-18)
[2017-02-17 07:44] LABS: CHOLESTEROL 100 mg/dL (<200); LDL 71 mg/dL (0-99); TRIGLYCERIDES 127 mg/dL (30-150)
[2017-02-17 07:50] LABS: INR 1.25 (0.87-1.13); PROTHROMBIN TIME 13.6 SECS (9.5-12.7)
[2017-02-17] MEDS: DOCUSATE SODIUM 100 MG CAPSULE PO SCH ×2 (07:58→13:53)
[2017-02-17] MEDS: ASPIRIN 81 MG TAB.CHEW PO SCH (07:58)
[2017-02-17] MEDS: TAMSULOSIN 0.4 MG CAP.SR.24H PO SCH (07:58)
[2017-02-17] MEDS: FINASTERIDE (5 MG) 5 MG TABLET PO SCH (07:59)
[2017-02-17] MEDS: FOLIC ACID 1 MG TABLET PO SCH (07:59)
[2017-02-17 08:00] VITALS: BP 115/67
--- NOTE | 2017-02-17 08:00 | NUR ---
TD/RN AM SHIFT INITIAL NOTES RECEIVED PT ASLEEP IN BED, PT OPEN EYES, A/O X 1 CONFUSED. NO FEVER OR ACUTE CHANGE OF CONDITION NOTED. PT ON SIMPLE MASK WITH 7L O2, SATURATING @ 96%, LUNG SOUNDS DIMINISHED. ON TELE WITH UNCONTROLLED A-FIB, HR 114. IV SITE FLUSHED, PATENT WITH NO S/S OF INFECTION, SL. PT ON STRICT NPO STATUS PENDING SWALLOW EVALUATION. NOTED WITH MINIMUM BLEEDING ON TIP OF PENIS D/T TRAUMA FOR AN ATTEMPT TO PLACE MARTIN CATHETER (UNSUCCESSFUL) PM CHARGE NURSE AWARE. PT JUST RECEIVED AM BATH. PT IS COMFORTABLE AT THIS TIME. CL WITHIN REACHED, SAFETY MAINTAINED AND ISOLATION OBSERVED. ON GOING MONITORING.
[2017-02-17 08:06] LABS: HDL CHOLESTEROL < 10 mg/dL (40-60)
[2017-02-17 08:44] LABS: BAND % (MANUAL) 3 % (0.0-5.0); LYMPHOCYTES % (MANUAL) 5 % (16-48); MONOCYTES % (MANUAL) 3 % (0-11.0); NEUTROPHILS % (MANUAL) 89 (42-76)
[2017-02-17] MEDS ORDERED: Z GUARD REMEDY 2 OZ OINT TP SCH (09:00)
--- NOTE | 2017-02-17 09:42 | NUR ---
TD/RN ROUNDS - DR. DEWITT UPDATED PT'S CONDITION. PT SEEN & EXAMINED BY DR. DEWITT. NO NEW ORDERS RECEIVED AT THIS TIME. MONITORING CONTINUED.
[2017-02-17] MEDS ORDERED: MEROPENEM 1 G in IV NS 0.9% 100 ML IV SCH (10:00)
[2017-02-17] MEDS ORDERED: IV NS 0.9% 500 ML IV ONE (10:15)
[2017-02-17] MEDS ORDERED: IV SET PRIMARY PUMP SET 1 EA INFUS.SET MC ONE (10:15)
[2017-02-17] MEDS ORDERED: SECONDARY IV SET 1 EA INFUS.SET MC ONE ×2 (10:16→13:54)
[2017-02-17] MEDS: MEROPENEM 1 G in IV NS 0.9% 100 ML IV SCH ×2 (10:29→21:38)
--- NOTE | 2017-02-17 10:41 | NUR ---
TD/RN ROUNDS - DR. VERA INFORMED DR. VERA THAT PT HAS UNCONTROLLED A-FIB. PT WAS SEEN & EXAMINED BY MD, NO NEW ORDERS RECEIVED AT THIS TIME. MONITORING CONTINUED.
[2017-02-17] MEDS: CARVEDILOL 6.25 MG TABLET PO SCH ×2 (11:00→21:00)
[2017-02-17 12:00] VITALS: BP 110/70
[2017-02-17] MEDS: ZOLPIDEM TARTRATE 5 MG TABLET PO SCH (13:53)
[2017-02-17] MEDS: VANCOMYCIN 0.75 GM in IV D5W 250 ML IV SCH (13:56)
--- NOTE | 2017-02-17 15:00 | NUR ---
TD/RN ROUNDS PT HERBERT CARE PROVIDED AND REPOSITIONED. NO CHANGE OF CONDITION. MONITORING CONTINUED.
[2017-02-17 16:00] VITALS: BP_SYST 110; BP_SYST 113; BP_DIAS 70; BP_DIAS 73
[2017-02-17] MEDS ORDERED: VANCOMYCIN 1 GM in IV D5W 250 ML IV SCH (16:00)
[2017-02-17] MEDS: FLUCONAZOLE IN NS 100 MG in PREMIX 1 EA IV SCH ×2 (17:03)
--- NOTE | 2017-02-17 19:00 | NUR ---
TD/RN CRITICAL LAB RESULT NOTIFIED BY VENECIA OF LAB OF LACTIC ACID RESULT OF 2.3. CAN CLOSING MACHINE OPERATOR PRIMARY, RASHID COLLADO MADE AWARE, NO NEW ORDERS RECEIVED.
--- NOTE | 2017-02-17 19:24 | NUR ---
TD/RN AM SHIFT END NOTES ALL NEEDS MET, NO ACUTE CHANGE OF CONDITION DURING THE SHIFT. PT REMAINED ON NPO STATUS FOR SWALLOW EVALUATION. PT ENDORSED TO PM NURSE TO CONTINUE CARE. CL WITHIN REACHED, SAFETY MAINTAINED AND ISOLATION OBSERVED.
--- NOTE | 2017-02-17 19:30 | NUR ---
RN INITIAL NOTE RECEIVED PT IN NO ACUTE DISTRESS IN BED. PT IS CONFUSED. PT IS ON O2 VIA SIMPLE MASK @ 8LPM AND TOLERATING WELL WITH O2 SAT @ 98%. PT IS STRICT NPO AND AWAITING SWALLOW EVAL. PT IS NOT C/O ANY SOB, DIFFICULTY BREATHING OR PAIN AT THIS TIME. PT HAS LHAND 20G THAT IS CLEAN DRY INTACT AND PATENT, PT HAS R HAND 22G THAT IS CLEAN DRY INTACT AND PATENT. PT HAS ROSAURA MIDLINE THAT IS CLEAN DRY INTACT AND PATENT WITH NS @ TKO. BED IN LOW LOCK POSITION WITH RAILS UP X 2. CALL LIGHT WITHIN REACH AND ALL SAFETY MEASURES ENSURED AND CARRIED OUT.
[2017-02-17 20:00] VITALS: BP 114/63
--- NOTE | 2017-02-17 21:28 | NUR ---
RN NOTE INFORMED MIGUEL COLLADO LEGAL RESEARCHER ABOUT PT UNCONTROLLED AFIB. NO NEW ORDERS.
[2017-02-17] MEDS: DONEPEZIL 5 MG TABLET PO SCH (21:39)
[2017-02-17] MEDS: clonazePAM 0.5 MG TABLET PO SCH (21:39)
[2017-02-18] VITALS (35 sets, daily range): BP systolic 80–120; BP diastolic 44–79
[2017-02-18] MEDS: VANCOMYCIN 0.75 GM in IV D5W 250 ML IV SCH ×2 (01:36→17:18)
--- NOTE | 2017-02-18 06:41 | NUR ---
RN CLOSING NOTE PT REMAINS IN NO ACUTE DISTRESS IN BED BED. PT DID NOT HAVE ANY SIGNIFICANT CHANGE IN CONDITION DURING SHIFT. ALL NEEDS MET, ALL ORDERS CARRIED OUT. WILL ENDORSE TO AM RN FOR CONTINUITY OF CARE.
[2017-02-18 06:43] LABS: BASOPHILS % (AUTO) 0.1 % (0.0-2.0); EOSINOPHILS # (AUTO) 0.1 /CMM (0.0-0.7); EOSINOPHILS % (AUTO) 0.6 % (0.0-6.0); HEMATOCRIT 40 % (39-51); HEMOGLOBIN 12.5 g/dL (13.5-17.5); LYMPHOCYTES # (AUTO) 0.6 /CMM (0.8-4.8); LYMPHOCYTES % (AUTO) 4.2 % (20.0-44.0); MEAN CORPUSCULAR HEMOGLOBIN 23 PG (26.0-33.0); MEAN CORPUSCULAR HGB CONC 31 g/dl (31.0-36.0); MEAN CORPUSCULAR VOLUME 74 fL (80-96); MONOCYTES # (AUTO) 0.6 /CMM (0.1-1.30); MONOCYTES % (AUTO) 4.6 % (2.0-12.0); NEUTROPHILS # (AUTO) 12.1 /CMM (1.8-8.9); NEUTROPHILS % (AUTO) 90.5 % (43.0-81.0); PLATELET COUNT (AUTO) 538 /CMM (150-450); RDW COEFFICIENT OF VARIATION 21.9 (11.5-15.0); RED BLOOD CELL COUNT(AUTO) 5.41 MIL/uL (4.5-6.0); WHITE BLOOD COUNT (AUTO) 13.4 K/uL (4.3-11.0)
[2017-02-18] MEDS: DIVALPROEX SODIUM 500 MG TABLET.DR PO SCH ×4 (06:46→21:34)
[2017-02-18 07:43] LABS: CALCIUM, SERUM 7.9 mg/dL (8.5-10.1); CARBON DIOXIDE 22 mmol/L (21-32); CHLORIDE 112 mmol/L (98-107); CREATININE 1.2 mg/dL (0.6-1.3); GLUCOSE 110 mg/dL (74-106); MAGNESIUM 2.7 mg/dL (1.8-2.4); PHOSPHORUS 2.8 mg/dL (2.5-4.9); POTASSIUM 3.9 mmol/L (3.5-5.1); SODIUM SERUM 145 mmol/L (136-145); UREA NITROGEN, BLOOD 40 mg/dL (7-18)
--- NOTE | 2017-02-18 08:00 | NUR ---
Patient hava a right mottled, cold feet. unable to feel peripheral pulses. portable doppler, still unable to find pulse. informed Dr. Scanlon, ordered arterial doppler stat and vascular surgeon consult. Called radiology for stat doppler
--- NOTE | 2017-02-18 09:10 | NUR ---
Informed Dr. hare patient is still NPO and not receiving daily meds particularly Coreg. Currently Afib on 120's. Pending swallow eval
--- NOTE | 2017-02-18 09:20 | NUR ---
Informed Dr. Collado of Arterial doppler result.
[2017-02-18] MEDS: MEROPENEM 1 G in IV NS 0.9% 100 ML IV SCH ×2 (09:29→21:33)
[2017-02-18] MEDS ORDERED: ENOXAPARIN SODIUM 60 MG/0.6 ML DISP.SYRIN SQ SCH (09:30)
--- NOTE | 2017-02-18 10:05 | NUR ---
Per Speech therapist Sarah, patient needs to be kept NPO and can have medications crushed with apple sauce, thick liquid.
[2017-02-18 10:18] LABS: EOSINOPHILS % (MANUAL) 2 % (0-4); LYMPHOCYTES % (MANUAL) 7 % (16-48); MONOCYTES % (MANUAL) 2 % (0-11.0); NEUTROPHILS % (MANUAL) 89 (42-76)
[2017-02-18] MEDS: FINASTERIDE (5 MG) 5 MG TABLET PO SCH (10:27)
[2017-02-18] MEDS: FOLIC ACID 1 MG TABLET PO SCH (10:28)
[2017-02-18] MEDS: ASPIRIN 81 MG TAB.CHEW PO SCH (10:28)
[2017-02-18] MEDS: TAMSULOSIN 0.4 MG CAP.SR.24H PO SCH (10:28)
[2017-02-18] MEDS: DOCUSATE SODIUM 100 MG CAPSULE PO SCH ×2 (10:28→17:00)
[2017-02-18] MEDS: CARVEDILOL 6.25 MG TABLET PO SCH ×2 (10:28→21:00)
--- NOTE | 2017-02-18 10:43 | NUR ---
Dr. Collado at beside, updates given. Patient to be kept NPO for possible surgery. Waiting for vascular surgeon.
[2017-02-18] MEDS ORDERED: IOHEXOL-350 100 ML VIAL IV ONE ×3 (11:44→12:20)
[2017-02-18] MEDS ORDERED: IV NS 0.9% 250 ML IV ONE (11:44)
[2017-02-18] MEDS ORDERED: CT SWABBABLE VALVE TRANS SET 1 EA INFUS.SET MC ONE (11:44)
--- NOTE | 2017-02-18 11:50 | NUR ---
Patient brought to CT scan for angiogram of abdomen aorta run down.
[2017-02-18] MEDS ORDERED: CELLULOSE,OXIDIZED 1 EA PACK MC ONE (12:11)
[2017-02-18] MEDS ORDERED: LIDOCAINE HCL/PF 1% 30 ML SDV ONE (12:12)
[2017-02-18] MEDS ORDERED: THROMBIN (BOVINE) 5,000 UNITS VIAL TP ONE (12:12)
[2017-02-18] MEDS ORDERED: HEPARIN SODIUM, PORCINE 1,000 UNIT/ML VIAL ONE (12:12)
[2017-02-18] MEDS ORDERED: GELATIN SPONGE,ABSORBABLE 1 EA SPONGE TP ONE (12:13)
[2017-02-18] MEDS ORDERED: GELATIN SPONGE,ABSORBABLE 1 SPONGE SPONGE TP ONE (12:14)
[2017-02-18] MEDS ORDERED: IV NS 0.9% 1,000 ML IV PRN (12:30)
[2017-02-18 12:47] LABS: INR 1.27 (0.87-1.13); PROTHROMBIN TIME 13.8 SECS (9.5-12.7)
--- NOTE | 2017-02-18 13:14 | NUR ---
Patient left for Surgery. Unable to obtain consent, pending ordered procedure. Paged . Daughter was at bedside earlier, informed by Dr. Collado and Dr. Scanlon of pending procedure.
[2017-02-18] MEDS ORDERED: FENTANYL PF 250MCG/5ML AMPUL ONE (13:24)
[2017-02-18] MEDS ORDERED: ROCURONIUM BROMIDE 50 MG/5 ML ONE (13:25)
--- NOTE | 2017-02-18 13:42 | NUR ---
WOUND CARE CONSULT: PT PRESENTS WITH COLD PURPLE RT FOOT. DR TAYLOR IN ROOM TO EXAMINE PT. PT ALSO NOTED TO HAVE RASH TO INNER BUTTOCKS AND PERINEUM, PRESENT ON ADMISSION. RECOMMENDATIONS MADE FOR SKIN PROTECTION. DISCUSSED WITH NURSING STAFF. PT ON JOSE ISOFLEX LOW AIRLOSS BED. ALL SKIN PROTECTION MEASURES IN PLACE. MD IN AGREEMENT WITH PLAN OF CARE. Addendum: 02/18/17 at 1344 by CRUZ HARPER WNDNU Amended: Links added.
--- NOTE | 2017-02-18 13:43 | NUR ---
Consent given over phone by sinan. Daughter talked with Dr. Hartley.
[2017-02-18] MEDS ORDERED: HEPARIN SODIUM, PORCINE 5000 UNITS/1 ML VIAL ONE (14:15)
[2017-02-18] MEDS ORDERED: NOREPINEPHRINE 16 MG in IV D5W 500 ML IV PRN ×2 (14:30→18:00)
[2017-02-18] MEDS ORDERED: ANESTHESIA TRAY IN PYXIS 1 EA TRAY MC ONE ×2 (14:52→15:51)
[2017-02-18] MEDS ORDERED: CALCIUM CHLORIDE 1,000 MG/10 ML DISP.SYRIN ONE (15:06)
[2017-02-18] MEDS ORDERED: CALCIUM CHLORIDE 1,000 MG/10 ML DISP.SYRIN IV ONE (15:24)
[2017-02-18] MEDS ORDERED: EPINEPHRINE (1:10,000) SYRINGE 1 MG/10 ML DISP.SYRIN IVP ONE (15:26)
[2017-02-18] MEDS ORDERED: SODIUM BICARBONATE SYR 50 MEQ/50 ML DISP.SYRIN IV ONE (15:26)
--- NOTE | 2017-02-18 15:30 | NUR ---
ICU INITIAL NOTES RECEIVED PT POST CODE BLUE FROM OR, PT WAS RECEIVED INTUBATED 7.5 23CM@ LIP LINE TV 500 FIO2 100% PEEP 5 RATE 16, SATING 100%, NO S/S IF RESP. DISTRESS OR SOB NOTED AT THIS TIME, PT IS ON BEDSIDE MONITOR SHOWING A FIB @ 109 BPM, NO S/S OF CHEST PAIN OR DISCOMFORT, PT HAS PADS ON CHEST, PT IS NON RESPONSIVE, DOES NOT FOLLOW COMMANDS, PT HAS NO PULSE ON R FOOT, MOTTLED, AND VERY WEAK PULSE ON L FOOT, BOTH COLD TO THE TOUCH, PT HAS F/C DRAINING CLOUDY URINE TO GRAVITY, ROSAURA MIDLINE, C/D/I/PATENT, FLUSHING WELL, L WRIST ART LINE,C/D/I/PATENT, ZEROED, PT IS NOTED WITH DRESSING ON R CALF LEG, C/D/I, DR. TAYLOR, DR. WATSON AT BEDSIDE, DR. TAYLOR SPOKE WITH DAUGHTER REGARDING CODE AND UNSUCCESSFUL SURGERY, RESP CX, CXR, ABG, LABS TAKEN, DAUGHTER AWARE OF PT STATUS, WILL MONITOR PT CLOSELY Addendum: 02/19/17 at 0822 by JOVANNY JACKSON RN ADDED: PT HAS R CALF DRESSING C/D/I, UNABLE TO ACCESS SURGICAL INCISION, FIRST DRESSING CHANGE BY MD ONLY.
--- NOTE | 2017-02-18 16:25 | NUR ---
Report given to Pati OVALLE in ICU for cont of care
--- NOTE | 2017-02-18 16:30 | NUR ---
ICU NOTE PER PHARMACY, HEPARIN DRIP TO BE STARTED @ [address] T[address]LOR AND NO BOLUS NEEDED, PT RECEIVED LOVENOX IN THE AM
--- NOTE | 2017-02-18 16:30 | NUR ---
ICU NOTE DR. DEWITT NOTIFIED PT IS NOW IN ICU
[2017-02-18 16:32] LABS: ABG BASE EXCESS -6.6 mmol/L; ABG OXYGEN SATURATION 98.3 % (92.0-98.5); ABG PCO2 41.5 mmHg (35.0-45.0); ABG PH 7.292 (7.350-7.450); ABG PO2 158.6 mmHg (75.0-100.0); AaDO2 512.9 mmHg; O2Hb 96.3 % (94.0-97.0); PEEP,BG 5 cm H2O; SITE, ABG Right Radial; VT, ABG 500 mL
[2017-02-18] MEDS: CLOTRIMAZOLE 1% 15 GM TUBE TP SCH ×2 (17:00→17:18)
[2017-02-18] MEDS: ZOLPIDEM TARTRATE 5 MG TABLET PO SCH (17:52)
--- NOTE | 2017-02-18 18:42 | NUR ---
PT FROM O.R. ORALLY INTUBATED WITH SECURED AT 23CM SETTINGS ORDERED. ALARMS SET AND AUDIBLE ZERO DISTRESS NOTED AT THIS TIME. AMBU-BAG AT HEAD OF BED. Addendum: 02/18/17 at 1844 by SHANTEL PAREDES RT Amended: Links added.
[2017-02-18] MEDS: FLUCONAZOLE IN NS,PREMIX 200 MG in PREMIX 1 EA IV SCH ×2 (18:45)
[2017-02-18] MEDS: HEPARIN INFUSION/D5W 500 ML IV PRN (20:34)
--- NOTE | 2017-02-18 21:25 | NUR ---
RT PT RECEIVED INTUBATED WITH 7.5 @ 23CM LIP PATENT AND SECURE VIA ANCHOR FAST. VENT SETTING NOTED PER MD CRABTREE VERBAL ORDERS. ALARMS SET AND AUDIBLE. AMBU BAG AT [facility]. BI TECHNICAL LEAD DONE. VENT PLUGGED IN TO RED OUTLET. PT TOLERATING SETTING WELL. WILL CONTINUE TO MONITOR. Addendum: 02/18/17 at 2130 by MADISON RINCON RT Amended: Links added.
[2017-02-18] MEDS: DONEPEZIL 5 MG TABLET PO SCH (21:33)
[2017-02-18] MEDS: clonazePAM 0.5 MG TABLET PO SCH (21:34)
[2017-02-19] VITALS (49 sets, daily range): BP systolic 82–134; BP diastolic 41–93
[2017-02-19] MEDS: VANCOMYCIN 0.75 GM in IV D5W 250 ML IV SCH ×2 (02:06→14:45)
[2017-02-19 05:09] LABS: BASOPHILS % (AUTO) 0.1 % (0.0-2.0); HEMATOCRIT 36 % (39-51); HEMOGLOBIN 11.5 g/dL (13.5-17.5); LYMPHOCYTES # (AUTO) 0.7 /CMM (0.8-4.8); LYMPHOCYTES % (AUTO) 3.9 % (20.0-44.0); MEAN CORPUSCULAR HEMOGLOBIN 24 PG (26.0-33.0); MEAN CORPUSCULAR HGB CONC 32 g/dl (31.0-36.0); MEAN CORPUSCULAR VOLUME 74 fL (80-96); MONOCYTES # (AUTO) 0.8 /CMM (0.1-1.30); MONOCYTES % (AUTO) 4.3 % (2.0-12.0); NEUTROPHILS # (AUTO) 16.7 /CMM (1.8-8.9); NEUTROPHILS % (AUTO) 91.7 % (43.0-81.0); PLATELET COUNT (AUTO) 602 /CMM (150-450); RED BLOOD CELL COUNT(AUTO) 4.87 MIL/uL (4.5-6.0); WHITE BLOOD COUNT (AUTO) 18.3 K/uL (4.3-11.0)
[2017-02-19 05:27] LABS: CALCIUM, SERUM 9.4 mg/dL (8.5-10.1); CARBON DIOXIDE 21 mmol/L (21-32); CHLORIDE 116 mmol/L (98-107); CREATININE 1.4 mg/dL (0.6-1.3); GLUCOSE 118 mg/dL (74-106); MAGNESIUM 2.4 mg/dL (1.8-2.4); PHOSPHORUS 4.1 mg/dL (2.5-4.9); POTASSIUM 4.2 mmol/L (3.5-5.1); SODIUM SERUM 147 mmol/L (136-145); UREA NITROGEN, BLOOD 46 mg/dL (7-18)
[2017-02-19 05:46] LABS: BAND % (MANUAL) 2 % (0.0-5.0); LYMPHOCYTES % (MANUAL) 7 % (16-48); MONOCYTES % (MANUAL) 2 % (0-11.0); NEUTROPHILS % (MANUAL) 89 (42-76)
--- NOTE | 2017-02-19 06:00 | NUR ---
RESIDENCE DIRECTOR - REC'D PT. OBTUNDED/SEMICOMATOSE W/FAMILY AT BS. PUPILS ARE 3/BILAT.-NON-REACTIVE. NO REACTION TO NAILBED STIMULUS. +GAG/+COUGH WHEN SX'D. PT. DID TWITCH BOTH FEET W/PLANTAR DRIVES. POOR UOP/300 CC/12 HR. SHIFT. PT.HAS EEG SCHEDULED IN AM ALONG W/PSYCH CONSULT. CELIA GALLAGHER HAS 0.9%NS INFUSING AT 85 CC/HR, ALONG W/HEPARIN GTT. WHICH WAS STARTED AT 20:00PM LAST NIGHT AT 1250 UNITS/HR. PTT WAS AT 43 SEC. THIS AM & INFUSION WAS CHANGED TO 1400 UNITS/HR. LEVOPHED WAS ALSO STARTED FOR LABILE SBP'S. XOCHILT TO LEFT RADIAL IS VERY POSITIONAL. PT.HAS MOTTLED RT. FOOT W/NO PULSE INCLUDING DOPPLERS. DOPPLER PULSE IS WEAK, BUT AUDIBLE TO LEFT FOOT. FIO2 ON VENT HAS BEEN TITRATED DOWN TO 50%. CONT. POC.
[2017-02-19] MEDS: DIVALPROEX SODIUM 500 MG TABLET.DR PO SCH ×4 (07:30→21:33)
--- NOTE | 2017-02-19 08:15 | NUR ---
ICU/RN: DR HEARD AT BEDSIDE FOR NEURO CONSULT. PT NOTED WTIH + GAG/COUGH REFLEX, RESPONDS TO NAILBED STIMULI, PLANTAR REFLEXES +. ORDERS FOR EEG AND HEAD CT NOTED. SENIOR FINANCIAL REPORTING ACCOUNTANT UPDATED.
[2017-02-19] MEDS: ASPIRIN 81 MG TAB.CHEW PO SCH (08:29)
[2017-02-19] MEDS: FINASTERIDE (5 MG) 5 MG TABLET PO SCH (08:30)
[2017-02-19] MEDS: TAMSULOSIN 0.4 MG CAP.SR.24H PO SCH (08:30)
[2017-02-19] MEDS: FOLIC ACID 1 MG TABLET PO SCH (08:30)
[2017-02-19] MEDS: CARVEDILOL 6.25 MG TABLET PO SCH ×2 (08:30→21:00)
[2017-02-19] MEDS: DOCUSATE SODIUM 100 MG CAPSULE PO SCH ×2 (08:30→17:00)
[2017-02-19] MEDS: CLOTRIMAZOLE 1% 15 GM TUBE TP SCH ×2 (09:37→17:28)
[2017-02-19] MEDS: MEROPENEM 1 G in IV NS 0.9% 100 ML IV SCH ×2 (09:38→21:34)
--- NOTE | 2017-02-19 10:00 | NUR ---
ICU/RN: UMA GODFREY AT BEDSIDE. UPDATED ON PT STATUS - S/P CODE BLUE IN OR, CURRENTLY ON PRESSORS. DISCUSSED POC WITH DAUGHTER, AND WISHES "EVERYTHING TO BE DONE. I DON'T WANT TO CHANGE CODE STATUS JUST YET UNTIL I DISCUSS THIS WITH MY MOM AND I HAVE CT/EEG RESULTS." REMAINS FULL CODE.
--- NOTE | 2017-02-19 10:30 | NUR ---
ICU/RN: RECEIVED PTT RESULTS; NO CHANGE PER NON-ACS HEPARIN DRIP PROTOCOL. NEXT PTT DRAW TOMORROW 02/20/27 WITH AM LABS.
[2017-02-19 11:50] LABS: ABG BASE EXCESS -2.3 mmol/L; ABG OXYGEN SATURATION 97.1 % (92.0-98.5); ABG PCO2 30.4 mmHg (35.0-45.0); ABG PH 7.452 (7.350-7.450); ABG PO2 101.4 mmHg (75.0-100.0); AaDO2 112.8 mmHg; COHb 1.1 % (0.5-1.5); MetHb 0.8 % (0.0-1.5); O2Hb 95.3 % (94.0-97.0); PEEP,BG 5 cm H2O; SITE, ABG A-Line; VT, ABG 500 mL
--- NOTE | 2017-02-19 12:00 | NUR ---
ICU/RN: R NARE NGT INSERTED, PLACEMENT VERIFIED BY 2ND RN, JULIANNE German DORSALIS PEDIS PULSE AUSCULTATED VIA BESIDE DOPPLER. WEAK PULSE DETECTED, EXTREMITY IS COOL TO TOUCH. PT AWAKENS TO LIGHT TO PAINFUL STIMULI. ABLE TO MOVE LOWER EXTREMITIES.
[2017-02-19] MEDS: IV D5W 1,000 ML IV PRN (12:30)
[2017-02-19] MEDS: HEPARIN INFUSION/D5W 500 ML IV PRN (12:47)
--- NOTE | 2017-02-19 15:15 | NUR ---
ICU/RN: LARRY OPERATOR AT BEDSIDE.
--- NOTE | 2017-02-19 16:00 | NUR ---
ICU/RN: PT TAKEN TO HEAD CT VIA ACLS PROTOCOL, ACCOMPANIED BY RN, RT. TRANSPORTED BACK IN STABLE CONDITION.
[2017-02-19] MEDS: ZOLPIDEM TARTRATE 5 MG TABLET PO SCH (17:28)
[2017-02-19] MEDS: FLUCONAZOLE IN NS,PREMIX 200 MG in PREMIX 1 EA IV SCH ×2 (17:29)
[2017-02-19] MEDS: DONEPEZIL 5 MG TABLET PO SCH (21:32)
[2017-02-19] MEDS: clonazePAM 0.5 MG TABLET PO SCH (21:33)
[2017-02-20] VITALS (41 sets, daily range): BP systolic 58–119; BP diastolic 50–77
[2017-02-20] MEDS: IV D5W 1,000 ML IV PRN (00:13)
[2017-02-20] MEDS: VANCOMYCIN 0.75 GM in IV D5W 250 ML IV SCH ×2 (02:30→13:23)
--- NOTE | 2017-02-20 03:34 | NUR ---
CUSTOMER ENGINEER - PT. REMAINS VENTED W/VENT SETTINGS OF AC-16, TV-500, 35% & PEEP OF 5. PT.NEEDS ALITTLE MORE SXING THAN USUAL. LEFT RADIAL XOCHILT IS PATENT. ZERO'D & CALIBRATED Q 4 HRS. RUE PICC LINES HAS ALL PORTS PATENT TO FLUSH. HEPARIN GTT. CONT. AT 1400 UNITS/HR. & D5W AT 85CC/HR. NEURO CHECKS DONE FREQUENTLY. HEART MONITOR SHOWS UNCONT. AFIB. NIBP'S ARE SOMEWHAT COMPATIBLE W/XOCHILT PRESSURES. MARTIN CATH TO GRAVITY W/GOOD UOP. RT.NARE NGT IS CLAMPED.+ PLACEMENT AUSC. SKIN ISSUES NOTED. 21:00 MEDS HELD DUE TO NPO STATUS. COMP. BEDBATH ADM. W/ORAL,VENT,HERBERT & SKIN/WOUND CARE ADM. CONT.POC.
[2017-02-20 04:53] LABS: BASOPHILS % (AUTO) 0.3 % (0.0-2.0); EOSINOPHILS # (AUTO) 0.3 /CMM (0.0-0.7); HEMATOCRIT 34 % (39-51); LYMPHOCYTES # (AUTO) 0.7 /CMM (0.8-4.8); LYMPHOCYTES % (AUTO) 5.2 % (20.0-44.0); MEAN CORPUSCULAR HEMOGLOBIN 24 PG (26.0-33.0); MEAN CORPUSCULAR HGB CONC 32 g/dl (31.0-36.0); MEAN CORPUSCULAR VOLUME 74 fL (80-96); MONOCYTES # (AUTO) 0.5 /CMM (0.1-1.30); MONOCYTES % (AUTO) 3.6 % (2.0-12.0); NEUTROPHILS # (AUTO) 11.5 /CMM (1.8-8.9); NEUTROPHILS % (AUTO) 88.9 % (43.0-81.0); PLATELET COUNT (AUTO) 518 /CMM (150-450); RDW COEFFICIENT OF VARIATION 21.7 (11.5-15.0); RED BLOOD CELL COUNT(AUTO) 4.64 MIL/uL (4.5-6.0); WHITE BLOOD COUNT (AUTO) 12.9 K/uL (4.3-11.0)
[2017-02-20 04:58] LABS: CALCIUM, SERUM 8.1 mg/dL (8.5-10.1); CARBON DIOXIDE 22 mmol/L (21-32); CHLORIDE 111 mmol/L (98-107); CREATININE 1.3 mg/dL (0.6-1.3); GLUCOSE 184 mg/dL (74-106); POTASSIUM 3.7 mmol/L (3.5-5.1); SODIUM SERUM 141 mmol/L (136-145); UREA NITROGEN, BLOOD 41 mg/dL (7-18)
[2017-02-20 05:32] LABS: INR 1.41 (0.87-1.13); PROTHROMBIN TIME 15.4 SECS (9.5-12.7)
[2017-02-20 05:43] LABS: EOSINOPHILS % (MANUAL) 1 % (0-4); LYMPHOCYTES % (MANUAL) 6 % (16-48); MONOCYTES % (MANUAL) 8 % (0-11.0); NEUTROPHILS % (MANUAL) 84 (42-76); REACTIVE LYMPHOCYTES 1 % (0-0)
--- NOTE | 2017-02-20 07:15 | NUR ---
CULINARY INSTRUCTOR - DOPPLER PEDAL PULSE TO LEFT FOOT IS AUDIBLE. DOPPLER PULSE READINGS TO RT. FOOT ARE ZILCH. NOTHING AUDIBLE. RT. FOOT IS COLD TO TOUCH. PTT RESULT CAME BACK AT #58. ACCORDING TO DOSING CHART, WE ARE TO KEEP THE RATE OF 1400UNITS UNCHANGED. REPORT ENDORSED TO DINORAH OVALLE. CONT. POC.
[2017-02-20] MEDS: DIVALPROEX SODIUM 500 MG TABLET.DR PO SCH ×4 (07:30→21:54)
--- NOTE | 2017-02-20 07:40 | NUR ---
RT PATIENT REC'D ORALLY INTUBATED ON [facility] VENT WITH ORDERED SETTINGS LAURENCE WELL. VENT ALARMS CHECKED + AUDIBLE. VENT PLUGGED INTO RED OUTLET. DIM B/S HEARD. SX'D WITH SMALL AMT PALE SEMITHICK SECRETIONS. AMBU BAG AT [facility]. CONT CURRENT PLAN OF RESP CARE. Addendum: 02/20/17 at 1501 by NUHA BOCANEGRA RT Amended: Links added.
[2017-02-20] MEDS: HEPARIN INFUSION/D5W 500 ML IV PRN (07:56)
[2017-02-20] MEDS: ASPIRIN 81 MG TAB.CHEW PO SCH (09:00)
[2017-02-20] MEDS: TAMSULOSIN 0.4 MG CAP.SR.24H PO SCH (09:00)
[2017-02-20] MEDS: FINASTERIDE (5 MG) 5 MG TABLET PO SCH (09:00)
[2017-02-20] MEDS: DOCUSATE SODIUM 100 MG CAPSULE PO SCH (09:00)
[2017-02-20] MEDS: CARVEDILOL 6.25 MG TABLET PO SCH ×2 (09:00→21:56)
[2017-02-20] MEDS: FOLIC ACID 1 MG TABLET PO SCH (09:00)
--- NOTE | 2017-02-20 09:25 | NUR ---
THIRD MATE- Dr. Oliveira at bedside. Updated md on pt's condition. Asked md if we can start using the NGT. Per md, ok to start using NGT and start NGT feedings. FNS consult placed. Will continue to monitor.
[2017-02-20] MEDS: MEROPENEM 1 G in IV NS 0.9% 100 ML IV SCH ×2 (09:28→21:55)
[2017-02-20] MEDS: CLOTRIMAZOLE 1% 15 GM TUBE TP SCH ×2 (09:29→16:24)
[2017-02-20] MEDS ORDERED: BUMETANIDE INJ 2 MG in IV NS 0.9% 32 ML IV ONE (10:30)
--- NOTE | 2017-02-20 10:50 | NUR ---
DIPLOMATIC OFFICER- Spoke to washer off. Ok to start patient on tube feedings, Nutren Pulmonary @ 40 ml/hr and Prostat BID. Orders placed. Will continue to monitor.
[2017-02-20] MEDS: ALBUMIN 25% 25 GM in PREMIX 1 EA IV SCH ×3 (12:03→21:56)
[2017-02-20] MEDS: NUTREN PULMONARY 1,000 ML BAG NG PRN (15:23)
[2017-02-20] MEDS: DOCUSATE SODIUM LIQ 100 MG/10 ML UDC NG SCH (16:23)
[2017-02-20] MEDS: PROSOURCE / PROSTAT (PYXIS) 30 ML UDC NG SCH (16:24)
[2017-02-20] MEDS: FLUCONAZOLE IN NS,PREMIX 200 MG in PREMIX 1 EA IV SCH ×2 (17:27)
[2017-02-20] MEDS ORDERED: ZOLPIDEM TARTRATE 5 MG TABLET PO SCH (18:00)
[2017-02-20] MEDS: ZOLPIDEM TARTRATE 5 MG TABLET PO SCH (21:53)
[2017-02-20] MEDS: clonazePAM 0.5 MG TABLET PO SCH (21:54)
[2017-02-20] MEDS: DONEPEZIL 5 MG TABLET PO SCH (21:54)
[2017-02-21] VITALS (38 sets, daily range): BP systolic 82–139; BP diastolic 44–77
[2017-02-21] MEDS: VANCOMYCIN 0.75 GM in IV D5W 250 ML IV SCH ×2 (01:52→22:12)
[2017-02-21] MEDS: HEPARIN INFUSION/D5W 500 ML IV PRN ×2 (02:29→17:12)
[2017-02-21 05:06] LABS: BASOPHILS # (AUTO) 0.1 /CMM (0.0-0.2); BASOPHILS % (AUTO) 1.2 % (0.0-2.0); EOSINOPHILS # (AUTO) 0.5 /CMM (0.0-0.7); EOSINOPHILS % (AUTO) 5.4 % (0.0-6.0); HEMATOCRIT 30 % (39-51); HEMOGLOBIN 9.8 g/dL (13.5-17.5); LYMPHOCYTES # (AUTO) 0.5 /CMM (0.8-4.8); LYMPHOCYTES % (AUTO) 5.3 % (20.0-44.0); MEAN CORPUSCULAR HEMOGLOBIN 24 PG (26.0-33.0); MEAN CORPUSCULAR HGB CONC 33 g/dl (31.0-36.0); MEAN CORPUSCULAR VOLUME 74 fL (80-96); MONOCYTES # (AUTO) 0.5 /CMM (0.1-1.30); MONOCYTES % (AUTO) 5.5 % (2.0-12.0); NEUTROPHILS # (AUTO) 7.8 /CMM (1.8-8.9); NEUTROPHILS % (AUTO) 82.6 % (43.0-81.0); PLATELET COUNT (AUTO) 409 /CMM (150-450); RDW COEFFICIENT OF VARIATION 21.6 (11.5-15.0); RED BLOOD CELL COUNT(AUTO) 4.02 MIL/uL (4.5-6.0); WHITE BLOOD COUNT (AUTO) 9.4 K/uL (4.3-11.0)
[2017-02-21] MEDS: ALBUMIN 25% 25 GM in PREMIX 1 EA IV SCH (05:06)
[2017-02-21 05:31] LABS: CALCIUM, SERUM 8.1 mg/dL (8.5-10.1); CARBON DIOXIDE 28 mmol/L (21-32); CHLORIDE 106 mmol/L (98-107); CREATININE 1.2 mg/dL (0.6-1.3); GLUCOSE 110 mg/dL (74-106); MAGNESIUM 1.9 mg/dL (1.8-2.4); PHOSPHORUS 2.5 mg/dL (2.5-4.9); POTASSIUM 2.9 mmol/L (3.5-5.1); SODIUM SERUM 142 mmol/L (136-145); UREA NITROGEN, BLOOD 36 mg/dL (7-18)
[2017-02-21 05:34] LABS: BAND % (MANUAL) 2 % (0.0-5.0); EOSINOPHILS % (MANUAL) 4 % (0-4); LYMPHOCYTES % (MANUAL) 8 % (16-48); MONOCYTES % (MANUAL) 2 % (0-11.0); NEUTROPHILS % (MANUAL) 84 (42-76)
--- NOTE | 2017-02-21 06:00 | NUR ---
AIR CARGO GROUND OPERATIONS SUPERVISOR - NO CHANGES FROM PREVIOUS ASSESSMENTS. LEFT RADIAL XOCHILT IS PATENT, CALIBRATED & ZEROED Q 4 HRS. PT. REC'D COMP. BEDBATH AT 05:00AM. 4AM RESIDUALS WERE 150CC. TF OFF. PT.HAS +GAG AND +COUGH DURING SUCTIONING VIA ETT/ORALLY. SX'S ARE PINK TINGED/[place]. MOD.AMT. BILAT.PLANTAR NEURO RESPONSE IS POSITIVE. PT.MOVES IMMEDIATELY WHEN SCRAPING UPWARD FROM HEEL TO SM. TOES. WITH NAIL BED STIMULUS, PT.HARDLY MOVES. HOWEVER, I HAVE HAD PT. LAST 3 DAYS, & HE MOVES MORE THAN WHEN ADMITTED TO ICU. EYES ARE OPEN BILATERALLY/SPONT. BUT NOT TO COMMAND. WILL ENDORSE TO DAYSHIFT. CONT.POC.
--- NOTE | 2017-02-21 07:00 | NUR ---
ICU INITIAL NOTES RECEIVED PT IN BED, RESPONSES TO PAIN AND TACTILE STIMULI ONLY, PT IS INTUBATED ETT 7.5, 23 CM @ LIP LINE, AC 16, TV 500, FIO2 35% PEEP 5, SATING 100%, NO S/S OF RESP. DISTRESS OR SOB NOTED AT THIS TIME, PT IS ON BEDSIDE MONITOR SHOWING CONTROLLED A FIB @ 85 BPM, PT HAS R NGT, CLAMPED D/T HIGH RESIDUALS, PT HAS F/C DRAINING CLOUDY YELLOW URINE TO GRAVITY, PT HAS ROSAURA PICC, RUNNING TKO, HEPARIN @1400 UNITS/HR, C/D/I/PATENT, FLUSHING WELL, L WRIST A LINE, ZERO'S, C/D/I/PATENT, NO S/S OF INFECTION/ INFILTRATION NOTED AT THIS TIME, PT IS NOTED WITH NO PULSE ON L FOOT, COLD TO TOUCH, PALE, R FOOT WEAK PULSE WITH DOPPLER ONLY, COLD TO TOUCH, PT HAS DRESSING ON RIGHT CALF, C/D/I, MD ONLY TO REMOVE DRESSING, PT IS NOTED WITH SKIN ISSUES, ALL SAFETY MEASURES IN PLACE AT ALL TIMES, CALL LIGHT WITHIN EASY REACH, ALL NEEDS MET, WILL MONITOR PT CLOSELY
[2017-02-21] MEDS: FINASTERIDE (5 MG) 5 MG TABLET PO SCH (08:14)
[2017-02-21] MEDS: CARVEDILOL 6.25 MG TABLET PO SCH ×2 (08:14→21:01)
[2017-02-21] MEDS: FOLIC ACID 1 MG TABLET PO SCH (08:14)
[2017-02-21] MEDS: DOCUSATE SODIUM LIQ 100 MG/10 ML UDC NG SCH ×2 (08:14→16:09)
[2017-02-21] MEDS: ASPIRIN 81 MG TAB.CHEW PO SCH (08:14)
[2017-02-21] MEDS: DIVALPROEX SODIUM 500 MG TABLET.DR PO SCH ×4 (08:14→21:02)
[2017-02-21] MEDS: TAMSULOSIN 0.4 MG CAP.SR.24H PO SCH (08:14)
[2017-02-21] MEDS: CLOTRIMAZOLE 1% 15 GM TUBE TP SCH ×2 (08:15→16:09)
[2017-02-21] MEDS: PROSOURCE / PROSTAT (PYXIS) 30 ML UDC NG SCH ×2 (08:15→16:09)
[2017-02-21] MEDS: Z GUARD REMEDY 2 OZ OINT TP PRN (08:16)
[2017-02-21] MEDS: POTASSIUM CL. PREMIX PERIPHER. 50 ML IV SCH ×8 (09:31→16:12)
[2017-02-21] MEDS: MEROPENEM 1 G in IV NS 0.9% 100 ML IV SCH ×2 (10:13→21:01)
--- NOTE | 2017-02-21 11:15 | NUR ---
ICU NOTE PULLeti KURTZ MADE ROUNDS, PT WAS PLACED ON CPAP PRESSURE SUPPORT 10 TV 500 PEEP 5, PT IS UNCONTROLLED A FIB @ 90BPM, RR 21, WILL CONT. TO MONITOR CLOSELY
--- NOTE | 2017-02-21 12:30 | NUR ---
ICU NOTES PER MD'S REQUEST, PT WAS PLACED BACK ON ORIGINAL VENT SETTINGS, AC 16 TV 500 FIO2 35% PEEP 5, SATING 100%, NO S/S OF RESP.DISTRESS OR SOB NOTED AT THIS TIME
[2017-02-21 12:38] LABS: ABG BASE EXCESS -3.2 mmol/L; ABG OXYGEN SATURATION 98.3 % (92.0-98.5); ABG PCO2 29.8 mmHg (35.0-45.0); ABG PH 7.446 (7.350-7.450); AaDO2 72.9 mmHg; COHb 0.7 % (0.5-1.5); MetHb 1.1 % (0.0-1.5); O2Hb 96.5 % (94.0-97.0); PEEP,BG 5 cm H2O; SITE, ABG A-Line; VENT MODE, BG CPAP PSV 10
[2017-02-21] MEDS: NUTREN PULMONARY 1,000 ML BAG NG PRN (12:50)
--- NOTE | 2017-02-21 12:55 | NUR ---
ICU NOTE FEEDING RESIDUALS 100ML, NOTIFIED DR. IBARRA, ORDERS REGLAN 10MG TID IV, ORDERS ACK, FEEDING RESTARTED @ 20ML/HR
[2017-02-21] MEDS: METOCLOPRAMIDE HCL 10 MG/2 ML VIAL IV SCH ×2 (13:18→16:12)
[2017-02-21] MEDS: FLUCONAZOLE IN NS,PREMIX 200 MG in PREMIX 1 EA IV SCH ×2 (17:11)
[2017-02-21] MEDS: ZOLPIDEM TARTRATE 5 MG TABLET PO SCH (17:18)
--- NOTE | 2017-02-21 19:51 | NUR ---
PHARMACY MANAGER: RECEIVED PT RESPONSES TO PAIN AND TACTILE STIMULI ONLY, PT IS INTUBATED ETT 7.5, 23 CM @ LIP LINE, AC 16, TV 500, FIO2 35% PEEP 5, SATURATING 100%, NO S/S OF RESP. DISTRESS OR SOB NOTED AT THIS TIME, PT IS ON BEDSIDE MONITOR SHOWING CONTROLLED A FIB RATE OF 90-110, PT HAS R NGT NUTREN FEEDING RUNNING AT 30 ML/HR , RESIDUAL 50 ML AT THIS TIME, IT BEEN HIGH REPORTED BY DAY NURSE., PT HAS F/C DRAINING CLOUDY YELLOW URINE TO GRAVITY, PT HAS ROSAURA PICC, RUNNING TKO, HEPARIN @1400 UNITS/HR, NEXT PTT WILL BE IN AM. PICC FLUSHING WELL, L WRIST ARTERIAL- LINE, ZERO'S, C/D/I/PATENT, NO S/S OF INFECTION/ INFILTRATION NOTED AT THIS TIME, S/P RIGHT CALF SURGERY, WITH NO PULSE ON RIGHT FOOT, COLD TO TOUCH, PALE, L FOOT WEAK PULSE WITH DOPPLER ONLY, COLD TO TOUCH, PT HAS DRESSING ON RIGHT CALF, C/D/I, MD ONLY TO REMOVE DRESSING, PT IS NOTED WITH SKIN ISSUES, ALL SAFETY MEASURES PLACED. KEEP MONITORING...
[2017-02-21] MEDS ORDERED: VANCOMYCIN 0.75 GM in IV D5W 250 ML IV SCH (20:00)
--- NOTE | 2017-02-21 20:18 | NUR ---
WATCHMAKER APPRENTICE: VANCOMYCIN TROUGH LEVEL 20, NOTIFIED PHARMACIST SAID' THEY WILL RESCHEDULE THE DOSE. LAST VANCOMYCIN TROUGH LEVEL WAS 23.
--- NOTE | 2017-02-21 20:46 | NUR ---
LAB ANIMAL TECHNICIAN; ARTERIAL LINE DRESSING CHANGED. ZEROED, CONNECTION SECURED, GOOD WAVEFORM NOTED. BP STABLE.
[2017-02-21] MEDS: clonazePAM 0.5 MG TABLET PO SCH ×2 (21:02→21:04)
[2017-02-21] MEDS: DONEPEZIL 5 MG TABLET PO SCH (21:02)
--- NOTE | 2017-02-21 21:05 | NUR ---
OUTPATIENT CASE MANAGER: 2200 DOSE OF KLONOPIN 0.5 MG NOT GIVEN, PT IS SEMICOMATOSE, NO AGITATION, NO ANY S/S OF ANXIETY NOTED, WILL ENDORSE TO NEXT SHIFT FOLLOW UP WITH MD GET PARAMETERS. CHARGE NURSE AWARE.
--- NOTE | 2017-02-21 21:15 | NUR ---
PT RECEIVED INTUBATED WITH 7.5 ETT SECURED AT 23CM AT THE LIP. NO RESP DISTRESS NOTED. PT TOLERATING VENT SETTINGS. SX'D FOR MOD AMT OF THIN WHITE SECRETIONS. VENT ALARMS SET AND AUDIBLE. AMBU BAG AT [facility]. VENT PLUGGED INTO RED OUTLET. WILL CONTINUE TO MONITOR. Addendum: 02/21/17 at 2116 by MIROSLAVA GALINDO RT Amended: Links added.
[2017-02-22] VITALS (38 sets, daily range): BP systolic 75–150; BP diastolic 43–75
[2017-02-22 04:58] LABS: CALCIUM, SERUM 7.7 mg/dL (8.5-10.1); CARBON DIOXIDE 25 mmol/L (21-32); CHLORIDE 109 mmol/L (98-107); CREATININE 0.9 mg/dL (0.6-1.3); GLUCOSE 102 mg/dL (74-106); SODIUM SERUM 142 mmol/L (136-145); UREA NITROGEN, BLOOD 29 mg/dL (7-18)
[2017-02-22 05:21] LABS: INR 1.19 (0.87-1.13); PROTHROMBIN TIME 12.9 SECS (9.5-12.7)
--- NOTE | 2017-02-22 07:45 | NUR ---
CUFFER: pt.is rest now, no sedation, reactive by touch: can open eyes for seconds, short eyes contact, but no tracking, unable to follow commands, trace arms now, no legs activity, afib HR 80-105, SBP over 100 per L.wrist Nicolasa monitoring, L.wrist pulse+, Heparin gtt, last PTT 73 at 0600, dose adjusted, next PTT at 1200, L.calf s/p surgery dressing is intact, no bleeding events over night by report, dressing needs to be change by by report, unable to check pulse over R/L foot d/t edema, skin over is pinky, WNL, started more elevated
[2017-02-22] MEDS: DIVALPROEX SODIUM 500 MG TABLET.DR PO SCH ×4 (07:53→21:25)
--- NOTE | 2017-02-22 08:06 | NUR ---
WOUND CARE CONSULT: PT FOLLOWED BY SURGICAL TEAM FOR WOUND/SKIN ISSUES. DEFER TO SURGICAL TEAM FOR TREATMENT PLAN. ALL SKIN PROTECTION MEASURES IN PLACE. WILL SEE PRN. IN AGREEMENT WITH PLAN OF CARE.
--- NOTE | 2017-02-22 08:15 | NUR ---
PERFORMANCE IMPROVEMENT DIRECTOR: is in room, updated with pt.current/neurostatus, VS, I/O, O2 sat., heparin gtt, spoke with RT, changed vent for CPAP mode, canceled Josh, w/c nurse, Anne also reevaluated pt., stated: R.foot skin color much better
--- NOTE | 2017-02-22 09:16 | NUR ---
REGISTERED ROUTE ASSOCIATE: radiol.dep. called: ETT is 8.3cm above brayan, was notified/ordered: push ETT in for 4cm, RT notified
[2017-02-22 09:25] LABS: ABG BASE EXCESS -0.5 mmol/L; ABG OXYGEN SATURATION 98.3 % (92.0-98.5); ABG PCO2 32.2 mmHg (35.0-45.0); ABG PH 7.466 (7.350-7.450); ABG PO2 142.3 mmHg (75.0-100.0); AaDO2 69.8 mmHg; COHb 0.3 % (0.5-1.5); MetHb 0.8 % (0.0-1.5); O2Hb 97.2 % (94.0-97.0); PEEP,BG 5 cm H2O; SITE, ABG A-Line; VENT MODE, BG CPAP
--- NOTE | 2017-02-22 09:30 | NUR ---
BRAKE RELINER: pt.is tolerated well for CPAP, O2 sat. WNL, gat ABG, no any critical values, waiting , HR up to 110-115 afib short episodes, pt.is unable to follow commands
--- NOTE | 2017-02-22 09:51 | NUR ---
RT PER DR DENTT PUSHED IN 3CM AND SECURED AT 26CM MID LIP. YAMILE KONG AWARE Addendum: 02/22/17 at 0952 by NUHA BOCANEGRA RT Amended: Links added.
--- NOTE | 2017-02-22 10:19 | NUR ---
FLOOR WORKER TRANSFER BAY: is in room, checked ABG, pt.neurostatus, said: resume back to AC vent.mode, ordered: Amiodarone 200mg via GT BID
[2017-02-22] MEDS: ASPIRIN 81 MG TAB.CHEW PO SCH (10:45)
[2017-02-22] MEDS: DOCUSATE SODIUM LIQ 100 MG/10 ML UDC NG SCH ×2 (10:45→16:28)
[2017-02-22] MEDS: METOCLOPRAMIDE HCL 10 MG/2 ML VIAL IV SCH ×3 (10:45→16:28)
[2017-02-22] MEDS: TAMSULOSIN 0.4 MG CAP.SR.24H PO SCH (10:45)
[2017-02-22] MEDS: FINASTERIDE (5 MG) 5 MG TABLET PO SCH (10:45)
[2017-02-22] MEDS: MEROPENEM 1 G in IV NS 0.9% 100 ML IV SCH ×2 (10:45→21:14)
[2017-02-22] MEDS: FOLIC ACID 1 MG TABLET PO SCH (10:45)
[2017-02-22] MEDS: PROSOURCE / PROSTAT (PYXIS) 30 ML UDC NG SCH ×2 (10:46→16:28)
[2017-02-22] MEDS: CARVEDILOL 6.25 MG TABLET PO SCH ×2 (10:46→20:27)
[2017-02-22] MEDS: CLOTRIMAZOLE 1% 15 GM TUBE TP SCH ×2 (10:47→16:28)
[2017-02-22] MEDS: AMIODARONE HCL 200 MG TABLET PO SCH ×2 (12:04→20:27)
[2017-02-22] MEDS: HEPARIN INFUSION/D5W 500 ML IV PRN (12:36)
--- NOTE | 2017-02-22 13:20 | NUR ---
GRANT WRITER: PTT now is 53, in therapeutic goal, continue same Heparin gtt rate
--- NOTE | 2017-02-22 15:21 | NUR ---
AMMONIA PRINT OPERATOR: pt.daughter is in room, notified re pt.current/neuro status, VS, gtt, I/O, GTF, orders, wean attempt today, POC, got , phone numbers. HR 83-105, SBP by laura: 120-139, O2sat. WNL, reactive by name, unable to follow commands, rest
[2017-02-22] MEDS: FLUCONAZOLE (100 MG) 100 MG TABLET GT SCH (16:27)
[2017-02-22] MEDS: ZOLPIDEM TARTRATE 5 MG TABLET PO SCH (17:50)
--- NOTE | 2017-02-22 19:46 | NUR ---
GROUNDSKEEPING YARDMAN RECEIVED REPORT FROM DILAN, PATIENT SPONTANEOUSLY OPENS EYES BUT OBTUNDED, WITH LARGE AMOUNT OF ORAL SECRETIONS, FOAMY AND WHITE AND SMALL AMOUNT OF SECRETIONS FROM ET, [place]CA IN COLOR, NO SOB. AFEBRILE T 96.6, AFIB 102, O2 SAT 100% ON VENT SETTINGS OF AC 15 TV 500 FIO2 35% PEEP 5, A-LINE BP 124/54 AND CUFF BP 109/75. ON HEPARIN DRIP AT 1250 UNITS PER HOUR, MARTIN DRAINING TO YELLOW URINE. WILL CONTINUE TO MONITOR
--- NOTE | 2017-02-22 19:59 | NUR ---
JUVENILE CORRECTIONAL OFFICER DRESSINGS OVER RT LEG THROMBOLECTOMY INTACT, SURGEON TO CHANGE DRESSING PER REPORT Addendum: 02/23/17 at 0213 by HELENE HARLEY RN JUVENILE CORRECTIONAL OFFICER CORRECTION: THROMBECTOMY
--- NOTE | 2017-02-22 20:23 | NUR ---
PT RECEIVED INTUBATED WITH 7.5 ETT SECURED AT 25CM AT THE LIP. NO RESP DISTRESS NOTED. PT TOLERATING VENT SETTINGS. SX'D FOR MOD AMT OF THIN WHITE SECRETIONS. VENT ALARMS SET AND AUDIBLE. AMBU BAG AT [facility]. VENT PLUGGED INTO RED OUTLET. WILL CONTINUE TO MONITOR. Addendum: 02/22/17 at 2022 by MIROSLAVA GALINDO RT Amended: Links added.
[2017-02-22] MEDS: clonazePAM 0.5 MG TABLET PO SCH (21:25)
[2017-02-22] MEDS: DONEPEZIL 5 MG TABLET PO SCH (21:25)
[2017-02-22] MEDS: VANCOMYCIN 0.75 GM in IV D5W 250 ML IV SCH (22:12)
--- NOTE | 2017-02-22 22:13 | NUR ---
COMMISSARY CLERK VANCO TROUGH 17. VANCO IV GIVEN
[2017-02-22] MEDS: NUTREN PULMONARY 1,000 ML BAG NG PRN (23:27)
[2017-02-23] VITALS (36 sets, daily range): BP systolic 59–150; BP diastolic 43–75
[2017-02-23 04:35] LABS: BASOPHILS % (AUTO) 0.1 % (0.0-2.0); EOSINOPHILS # (AUTO) 0.4 /CMM (0.0-0.7); EOSINOPHILS % (AUTO) 4.3 % (0.0-6.0); HEMATOCRIT 31 % (39-51); HEMOGLOBIN 10.1 g/dL (13.5-17.5); LYMPHOCYTES # (AUTO) 0.6 /CMM (0.8-4.8); LYMPHOCYTES % (AUTO) 6.6 % (20.0-44.0); MEAN CORPUSCULAR HEMOGLOBIN 24 PG (26.0-33.0); MEAN CORPUSCULAR HGB CONC 33 g/dl (31.0-36.0); MEAN CORPUSCULAR VOLUME 75 fL (80-96); MONOCYTES # (AUTO) 0.3 /CMM (0.1-1.30); NEUTROPHILS # (AUTO) 7.7 /CMM (1.8-8.9); PLATELET COUNT (AUTO) 385 /CMM (150-450); RDW COEFFICIENT OF VARIATION 22.1 (11.5-15.0); RED BLOOD CELL COUNT(AUTO) 4.17 MIL/uL (4.5-6.0); WHITE BLOOD COUNT (AUTO) 8.9 K/uL (4.3-11.0)
[2017-02-23 04:51] LABS: CALCIUM, SERUM 7.9 mg/dL (8.5-10.1); CARBON DIOXIDE 27 mmol/L (21-32); CHLORIDE 110 mmol/L (98-107); CREATININE 0.8 mg/dL (0.6-1.3); GLUCOSE 111 mg/dL (74-106); MAGNESIUM 2.1 mg/dL (1.8-2.4); PHOSPHORUS 2.1 mg/dL (2.5-4.9); POTASSIUM 3.8 mmol/L (3.5-5.1); SODIUM SERUM 144 mmol/L (136-145); UREA NITROGEN, BLOOD 28 mg/dL (7-18)
[2017-02-23 05:42] LABS: BAND % (MANUAL) 1 % (0.0-5.0); EOSINOPHILS % (MANUAL) 4 % (0-4); LYMPHOCYTES % (MANUAL) 8 % (16-48); METAMYELOCYTES % 1 % (0-0); MONOCYTES % (MANUAL) 4 % (0-11.0); NEUTROPHILS % (MANUAL) 82 (42-76)
--- NOTE | 2017-02-23 06:15 | NUR ---
GARAGE HELPER APTT 43. PER SLIDING SCALE OF HEPARIN DRIP, BOLUS OF 2,800 UNITS IV WAS GIVEN AND HEPARIN DRIP WAS CHANGED TO 1,400 PER SLIDING SCALE ( 2 UNITS/KG ADDED). CALCULATIONS OF BOLUS AND DOSE CHANGED WAS RECHECKED AND CO SIGNED BY CHARGE NURSE ED
[2017-02-23] MEDS ORDERED: HEPARIN SODIUM, PORCINE 5000 UNITS/1 ML VIAL ONE (06:20)
[2017-02-23] MEDS ORDERED: HEPARIN SODIUM, PORCINE 5000 UNITS/1 ML VIAL IV ONE (06:30)
--- NOTE | 2017-02-23 07:30 | NUR ---
SHALE PROCESSING TECHNICIAN RECEIVED PATIENT OBTUNDED, OPENS EYES TO DEEP PAIN WITH ARTERIAL LINE IN PLACED ON HEPARIN DRIP RUNNING AT 1400 UNITS PER HOUR MONITORED ACCORDINGLY NO POPLITEAL PULSE OVER RIGHT FOOT
[2017-02-23] MEDS: HEPARIN INFUSION/D5W 500 ML IV PRN (07:42)
[2017-02-23] MEDS: DIVALPROEX SODIUM 500 MG TABLET.DR PO SCH (08:22)
[2017-02-23] MEDS: ASPIRIN 81 MG TAB.CHEW PO SCH (09:06)
[2017-02-23] MEDS: FINASTERIDE (5 MG) 5 MG TABLET PO SCH (09:06)
[2017-02-23] MEDS: METOCLOPRAMIDE HCL 10 MG/2 ML VIAL IV SCH ×3 (09:06→16:19)
[2017-02-23] MEDS: DOCUSATE SODIUM LIQ 100 MG/10 ML UDC NG SCH ×2 (09:06→16:18)
[2017-02-23] MEDS: TAMSULOSIN 0.4 MG CAP.SR.24H PO SCH (09:06)
[2017-02-23] MEDS: FOLIC ACID 1 MG TABLET PO SCH (09:06)
[2017-02-23] MEDS: CARVEDILOL 6.25 MG TABLET PO SCH ×2 (09:07→20:51)
[2017-02-23] MEDS: CLOTRIMAZOLE 1% 15 GM TUBE TP SCH ×2 (09:07→16:25)
[2017-02-23] MEDS: MEROPENEM 1 G in IV NS 0.9% 100 ML IV SCH ×2 (09:14→21:22)
[2017-02-23] MEDS: PROSOURCE / PROSTAT (PYXIS) 30 ML UDC NG SCH ×2 (09:30→16:18)
[2017-02-23] MEDS ORDERED: NEUTRA PHOS 1 POWD.PACKET NG ONE ×2 (11:30→12:00)
[2017-02-23] MEDS: VALPROIC ACID 250 MG/5 ML UDC PO SCH ×3 (12:06→21:28)
[2017-02-23] MEDS: FLUCONAZOLE (100 MG) 100 MG TABLET GT SCH (16:18)
[2017-02-23] MEDS: ZOLPIDEM TARTRATE 5 MG TABLET PO SCH (17:44)
--- NOTE | 2017-02-23 19:25 | NUR ---
ANIMAL BEHAVIOURIST DF PT PTT RESULTED OF GREATER THAN 170. PT CURRENTLY ON HEPARIN GTT S/P POPITEAL THROMBECTOMY TO RIGHT LEG. PER PROTOCOL HEPARIN GTT TURNED OFF NOTIFICATION SENT TO ORDERING PROVIDER, AWAITING CALL BACK FROM . PT OBTUNDED DOES NOT FOLLOW COMMANDS,NON INTERACTIVE,RESPONSIVE TO LIGHT TACTILE STIMULI PT WITHDRAWS, PT WITH HX OF DEMENTIA. PT INTUBATED TOLERATING CURRENT VENT SETTINGS O2 SAT OF 98% ON FIO2 35%.PT TOLERATING TUBE FEEDING NO RESIDUALS NOTED.PT WITH SURGICAL DRESSING TO RLE C/D/I. VSS. NAD NOTED. Addendum: 02/23/17 at 2155 by SHAD CARSON RN ORDERS RECEIVED HOLD HEPARIN GTT UNTIL 2300 RECHECK PTT RESULTS AT 2300 AND FOLLOW HEPARIN PROTOCOL.
--- NOTE | 2017-02-23 21:10 | NUR ---
PT RECEIVED INTUBATED WITH 7.5 ETT SECURED AT 25CM AT THE LIP. NO RESP DISTRESS NOTED. PT TOLERATING VENT SETTINGS. SX'D FOR MOD AMT OF THIN WHITE SECRETIONS. VENT ALARMS SET AND AUDIBLE. AMBU BAG AT [facility]. VENT PLUGGED INTO RED OUTLET. WILL CONTINUE TO MONITOR. Addendum: 02/23/17 at 2110 by MIROSLAVA GALINDO RT Amended: Links added.
[2017-02-23] MEDS: clonazePAM 0.5 MG TABLET PO SCH (21:23)
[2017-02-23] MEDS: VANCOMYCIN 0.75 GM in IV D5W 250 ML IV SCH (21:23)
[2017-02-23] MEDS: DONEPEZIL 5 MG TABLET PO SCH (21:23)
--- NOTE | 2017-02-23 23:33 | NUR ---
UX DEVELOPER DESIGNER DF PTT LAB DRAWN B REGULATOR MECHANIC ED, AWAITING RESULTS.
[2017-02-24] VITALS (35 sets, daily range): BP systolic 97–143; BP diastolic 46–76
--- NOTE | 2017-02-24 | NUR ---
CLINICAL SERVICES SPECIALIST DF PTT RESULTED OF 31 PER NON ACS HEPARIN GTT PT WEIGHT 71.7(70kg)BOLUS 80 UNITS/KG IS 5600 UNITS BOLUS THEN INCREASE HEPARIN GTT BY 300 UNITS/HR NEW RATE OF 1700 UNITS HR WITH PTT IN 6 HOURS AT 0600.
[2017-02-24] MEDS ORDERED: HEPARIN SODIUM, PORCINE 5000 UNITS/1 ML VIAL ONE (00:06)
[2017-02-24] MEDS ORDERED: HEPARIN SODIUM,PORCINE/PF 50 UNIT/5 ML DISP.SYRIN IV ONE (00:30)
[2017-02-24] MEDS ORDERED: HEPARIN SODIUM, PORCINE 5000 UNITS/1 ML VIAL IV ONE (00:30)
[2017-02-24 04:35] LABS: BASOPHILS % (AUTO) 0.3 % (0.0-2.0); EOSINOPHILS # (AUTO) 0.5 /CMM (0.0-0.7); EOSINOPHILS % (AUTO) 4.3 % (0.0-6.0); HEMATOCRIT 33 % (39-51); HEMOGLOBIN 10.6 g/dL (13.5-17.5); LYMPHOCYTES # (AUTO) 0.8 /CMM (0.8-4.8); LYMPHOCYTES % (AUTO) 7.2 % (20.0-44.0); MEAN CORPUSCULAR HEMOGLOBIN 24 PG (26.0-33.0); MEAN CORPUSCULAR HGB CONC 32 g/dl (31.0-36.0); MEAN CORPUSCULAR VOLUME 75 fL (80-96); MONOCYTES # (AUTO) 0.4 /CMM (0.1-1.30); MONOCYTES % (AUTO) 3.7 % (2.0-12.0); NEUTROPHILS # (AUTO) 9.3 /CMM (1.8-8.9); NEUTROPHILS % (AUTO) 84.5 % (43.0-81.0); PLATELET COUNT (AUTO) 393 /CMM (150-450); RDW COEFFICIENT OF VARIATION 22.6 (11.5-15.0); RED BLOOD CELL COUNT(AUTO) 4.41 MIL/uL (4.5-6.0)
[2017-02-24 04:59] LABS: CALCIUM, SERUM 7.4 mg/dL (8.5-10.1); CARBON DIOXIDE 28 mmol/L (21-32); CHLORIDE 109 mmol/L (98-107); CREATININE 0.8 mg/dL (0.6-1.3); GLUCOSE 128 mg/dL (74-106); MAGNESIUM 2.2 mg/dL (1.8-2.4); PHOSPHORUS 2.3 mg/dL (2.5-4.9); POTASSIUM 4.1 mmol/L (3.5-5.1); SODIUM SERUM 142 mmol/L (136-145); UREA NITROGEN, BLOOD 27 mg/dL (7-18)
[2017-02-24 05:14] LABS: BAND % (MANUAL) 2 % (0.0-5.0); EOSINOPHILS % (MANUAL) 5 % (0-4); LYMPHOCYTES % (MANUAL) 12 % (16-48); MONOCYTES % (MANUAL) 8 % (0-11.0); NEUTROPHILS % (MANUAL) 73 (42-76)
--- NOTE | 2017-02-24 05:14 | NUR ---
CHANGED ANCHOR FAST. ETT SECURED AT 25CM AT THE LIP.
--- NOTE | 2017-02-24 05:44 | NUR ---
OCEANOGRAPHER GEOLOGICAL DF PTT DRAWN FROM ARTERIAL LINE PROVIDED TO LAB AWAITING RESULTS.
[2017-02-24] MEDS: HEPARIN INFUSION/D5W 500 ML IV PRN (06:07)
--- NOTE | 2017-02-24 07:59 | NUR ---
DESKTOP SUPPORT ENGINEER RECEIVED PATIENT FROM THE PREVIOUS SHIFT. PATIENT IS IN BED. OBTUNDED NEURO STATUS. NO ACUTE RESPIRATORY DISTRESS NOTED. AFEBRILE. AFIB ON MONITOR. A LINE BP MONITORED. GOOD TUBE FEED TOLERANCE. VENT SETTINGS REVIEWED AND VERIFIED. TURNED AND REPOSITIONED FOR COMFORT AND WOUND PREVENTION. WILL CONTINUE TO MONITOR AND PROVIDE CARE.
--- NOTE | 2017-02-24 08:30 | NUR ---
LICENSED DIRECT ENTRY MIDWIFE SEEN BY BUYER BROKER. MD AWARE OF PATIENT'S CURRENT PTT. HEPARIN TO BE HELD PER MD RECOMMENDATION. NEXT PTT AT 1000H. PAGED DR. TAYLOR TO ASK IF PATIENT STILL NEED HEPARIN GTT. AWAITING CALL BACK.
[2017-02-24] MEDS: TAMSULOSIN 0.4 MG CAP.SR.24H PO SCH (08:45)
[2017-02-24] MEDS: FOLIC ACID 1 MG TABLET PO SCH (08:45)
[2017-02-24] MEDS: FINASTERIDE (5 MG) 5 MG TABLET PO SCH (08:45)
[2017-02-24] MEDS: METOCLOPRAMIDE HCL 10 MG/2 ML VIAL IV SCH ×3 (08:45→16:34)
[2017-02-24] MEDS: DOCUSATE SODIUM LIQ 100 MG/10 ML UDC NG SCH ×2 (08:45→16:34)
[2017-02-24] MEDS: ASPIRIN 81 MG TAB.CHEW PO SCH (08:45)
[2017-02-24] MEDS: CARVEDILOL 6.25 MG TABLET PO SCH ×2 (08:46→21:17)
[2017-02-24] MEDS: CLOTRIMAZOLE 1% 15 GM TUBE TP SCH ×2 (08:46→16:35)
[2017-02-24] MEDS: VALPROIC ACID 250 MG/5 ML UDC PO SCH ×4 (08:59→21:16)
[2017-02-24] MEDS: PROSOURCE / PROSTAT (PYXIS) 30 ML UDC NG SCH ×2 (08:59→16:34)
[2017-02-24] MEDS: MEROPENEM 1 G in IV NS 0.9% 100 ML IV SCH ×2 (09:16→21:17)
[2017-02-24] MEDS: FUROSEMIDE 40 MG/4 ML VIAL IV SCH ×3 (09:16→16:35)
--- NOTE | 2017-02-24 10:53 | NUR ---
FUEL CELL DESIGNER PTT 32. CERTIFIED PERSONAL TRAINER CONTACTED. RECEIVED ORDERS FORM MD FOR REINITIATION OF THE GTT. AWAITING VASCULAR SURGEON'S CALL BACK.
[2017-02-24] MEDS ORDERED: HEPARIN SODIUM, PORCINE 5000 UNITS/1 ML VIAL SQ ONE (11:30)
[2017-02-24] MEDS ORDERED: NEUTRA PHOS 1 POWD.PACKET NG ONE ×2 (13:30→16:00)
[2017-02-24] MEDS: ENOXAPARIN SODIUM 80 MG/0.8 ML DISP.SYRIN SQ SCH (15:41)
[2017-02-24] MEDS: FLUCONAZOLE (100 MG) 100 MG TABLET GT SCH (16:34)
[2017-02-24] MEDS ORDERED: ENOXAPARIN SODIUM 80 MG/0.8 ML DISP.SYRIN SQ SCH (21:00)
--- NOTE | 2017-02-24 21:26 | NUR ---
YAMILE STEVE TROUGH RESULTS DRAWN, AWAITING FOR RESULTS. Addendum: 02/24/17 at 2312 by SHAD CARSON RN LINDENO LEVEL OF 16 DOSE ADMINISTERED
[2017-02-24] MEDS: VANCOMYCIN 0.75 GM in IV D5W 250 ML IV SCH (22:22)
[2017-02-25] VITALS (49 sets, daily range): BP systolic 90–142; BP diastolic 48–82
--- NOTE | 2017-02-25 01:57 | NUR ---
RT PT RECEIVED INTUBATED ON [facility] VENT W/ 7.5 ETT @ 25CM LIP. ETT PATENT AND SECURE VIA ANCHOR FAST. VENT SETTING NOTED PER MD ORDERS. VENT PLUGGED IN TO RED OUTLET. ALARMS SET AND AUDIBLE AMBU BAG AT HOB. SX MOD AMOUNT OF THICK CLEAR/WHITE SECRETIONS. BILATERAL CHEST RISE AND FALL. NO SOB OR DISTRESS NOTED. WILL CONTINUE TO MONITOR. Addendum: 02/25/17 at 0158 by MADISON RINCON RT Amended: Links added.
[2017-02-25] MEDS: ENOXAPARIN SODIUM 80 MG/0.8 ML DISP.SYRIN SQ SCH ×2 (02:40→14:41)
[2017-02-25 05:15] LABS: BASOPHILS % (AUTO) 0.2 % (0.0-2.0); EOSINOPHILS # (AUTO) 0.3 /CMM (0.0-0.7); EOSINOPHILS % (AUTO) 2.9 % (0.0-6.0); HEMATOCRIT 32 % (39-51); HEMOGLOBIN 10.4 g/dL (13.5-17.5); LYMPHOCYTES # (AUTO) 0.8 /CMM (0.8-4.8); LYMPHOCYTES % (AUTO) 8.3 % (20.0-44.0); MEAN CORPUSCULAR HEMOGLOBIN 25 PG (26.0-33.0); MEAN CORPUSCULAR HGB CONC 33 g/dl (31.0-36.0); MEAN CORPUSCULAR VOLUME 75 fL (80-96); MONOCYTES # (AUTO) 0.4 /CMM (0.1-1.30); MONOCYTES % (AUTO) 4.5 % (2.0-12.0); NEUTROPHILS # (AUTO) 7.7 /CMM (1.8-8.9); NEUTROPHILS % (AUTO) 84.1 % (43.0-81.0); PLATELET COUNT (AUTO) 418 /CMM (150-450); RDW COEFFICIENT OF VARIATION 22.1 (11.5-15.0); RED BLOOD CELL COUNT(AUTO) 4.26 MIL/uL (4.5-6.0); WHITE BLOOD COUNT (AUTO) 9.2 K/uL (4.3-11.0)
[2017-02-25 05:19] LABS: ALANINE AMINOTRANSFERASE 60 U/L (12-78); ALBUMIN 2.1 g/dL (3.4-5.0); ALKALINE PHOSPHATASE 100 U/L (46-116); ASPARTATE AMINOTRANSFERASE 40 U/L (15-37); BILIRUBIN,TOTAL 0.6 mg/dL (0.2-1.0); CALCIUM, SERUM 7.6 mg/dL (8.5-10.1); CARBON DIOXIDE 31 mmol/L (21-32); CHLORIDE 107 mmol/L (98-107); CREATININE 0.9 mg/dL (0.6-1.3); GLUCOSE 100 mg/dL (74-106); MAGNESIUM 2.3 mg/dL (1.8-2.4); PHOSPHORUS 3.1 mg/dL (2.5-4.9); POTASSIUM 3.9 mmol/L (3.5-5.1); SODIUM SERUM 144 mmol/L (136-145); TOTAL PROTEIN, SERUM 6.6 g/dL (6.4-8.2); UREA NITROGEN, BLOOD 36 mg/dL (7-18)
[2017-02-25 06:11] LABS: BAND % (MANUAL) 5 % (0.0-5.0); EOSINOPHILS % (MANUAL) 2 % (0-4); LYMPHOCYTES % (MANUAL) 7 % (16-48); MONOCYTES % (MANUAL) 2 % (0-11.0); NEUTROPHILS % (MANUAL) 84 (42-76)
--- NOTE | 2017-02-25 07:35 | NUR ---
DOUBLE BACKER RECEIVED PATIENT FROM THE PREVIOUS SHIFT. PATIENT IS IN BED. NO ACUTE DISTRESS NOTED. STABLE VITAL SINGS. XOCHILT BP MONITORED. AFEBRILE. GOOD GT FEED TOLERANCE. ABLE TO TRACK AT THIS TIME. OPENS EYES MINIMALLY TO VERBAL COMMAND/ NAME CALLING. MARTIN DRAINING URINE TO GRAVITY. TURNED AND REPOSITIONED FOR COMFORT AND WOUND PREVENTION.WILL CONTINUE TO MONITOR AND PROVIDE CARE.
[2017-02-25] MEDS: PROSOURCE / PROSTAT (PYXIS) 30 ML UDC NG SCH ×2 (08:31→18:00)
[2017-02-25] MEDS: ASPIRIN 81 MG TAB.CHEW PO SCH (08:36)
[2017-02-25] MEDS: DOCUSATE SODIUM LIQ 100 MG/10 ML UDC NG SCH ×2 (08:36→18:00)
[2017-02-25] MEDS: METOCLOPRAMIDE HCL 10 MG/2 ML VIAL IV SCH ×3 (08:36→18:00)
[2017-02-25] MEDS: FOLIC ACID 1 MG TABLET PO SCH (08:36)
[2017-02-25] MEDS: CLOTRIMAZOLE 1% 15 GM TUBE TP SCH ×2 (08:37→17:57)
[2017-02-25] MEDS: CARVEDILOL 6.25 MG TABLET PO SCH ×2 (08:37→20:34)
[2017-02-25] MEDS: VALPROIC ACID 250 MG/5 ML UDC PO SCH ×4 (08:40→21:14)
[2017-02-25] MEDS: MEROPENEM 1 G in IV NS 0.9% 100 ML IV SCH ×2 (10:02→21:14)
[2017-02-25] MEDS: FUROSEMIDE 100 MG/10 ML VIAL IV SCH ×3 (11:04→17:56)
[2017-02-25] MEDS: FLUCONAZOLE (100 MG) 100 MG TABLET GT SCH (18:00)
--- NOTE | 2017-02-25 19:30 | NUR ---
RN INITIAL NOTES RECEIVED THE PT SLEEPING ON BED, AROUSABLE TO PAIN BUT REMAINS TO BE LETHARGIC. ON VENT, AC 16, TV 500, 35% FIO2, PEEP 5, 7.5/25@LIP, TACHYPNEIC BUT NO OTHER S/S OF RESP DISTRESS. AFIB ON THE MONITOR, HR 80-120'S. ARTERIAL LINE NOTED AND ZEROED. MARTIN CATH NOTED. RIGHT NARE NGT WITH NUTREN @ 40MLS/HR, NO RESIDUALS. RIGHT UPPER ARM PICC FLUSHED AND PATENT, NO S/S OF INFILTRATION/INFECTION, DRESSING CDI. BED LOW AND LOCKED, SIDERAILS UP. WILL MONITOR
[2017-02-25] MEDS: VANCOMYCIN 0.75 GM in IV D5W 250 ML IV SCH (21:42)
[2017-02-26] VITALS (48 sets, daily range): BP systolic 85–128; BP diastolic 46–99
[2017-02-26] MEDS: ENOXAPARIN SODIUM 80 MG/0.8 ML DISP.SYRIN SQ SCH ×2 (02:03→14:03)
[2017-02-26] MEDS: NUTREN PULMONARY 1,000 ML BAG NG PRN (03:46)
--- NOTE | 2017-02-26 06:30 | NUR ---
RN CLOSING NOTES PT REMAINS STABLE OF THE MOMENT. ALL DUE MEDS GIVEN, AM CARE PROVIDED. WILL ENDORSE CONTINUITY OF CARE TO AM RN
[2017-02-26] MEDS: VALPROIC ACID 250 MG/5 ML UDC PO SCH ×4 (08:21→21:04)
[2017-02-26] MEDS: FOLIC ACID 1 MG TABLET PO SCH (08:21)
[2017-02-26] MEDS: FUROSEMIDE 100 MG/10 ML VIAL IV SCH ×3 (08:21→15:03)
[2017-02-26] MEDS: CARVEDILOL 6.25 MG TABLET PO SCH ×2 (08:21→21:04)
[2017-02-26] MEDS: DOCUSATE SODIUM LIQ 100 MG/10 ML UDC NG SCH ×2 (08:21→16:30)
[2017-02-26] MEDS: METOCLOPRAMIDE HCL 10 MG/2 ML VIAL IV SCH ×3 (08:21→16:30)
[2017-02-26] MEDS: ASPIRIN 81 MG TAB.CHEW PO SCH (08:22)
[2017-02-26] MEDS: CLOTRIMAZOLE 1% 15 GM TUBE TP SCH ×2 (08:23→16:31)
[2017-02-26] MEDS: PROSOURCE / PROSTAT (PYXIS) 30 ML UDC NG SCH ×2 (08:24→16:32)
--- NOTE | 2017-02-26 10:30 | NUR ---
PT PLACED BACK ON AC MODE DUE TO ELEVATED WOB.
[2017-02-26] MEDS: MEROPENEM 1 G in IV NS 0.9% 100 ML IV SCH ×2 (10:50→21:04)
--- NOTE | 2017-02-26 11:05 | NUR ---
PT FAILED WEANING TRIAL DR. CANALES AT BEDSIDE SEE'S PT WITH RT. DUE TO CONSISTENT TACHYPNEIC RATE AT 35 AND TACHYCARDIA INCONSISTENTLY HIGH 150'S LOW 110'S HE ORDERS TO PLACE PT BACK ON FULL AC MODE.
[2017-02-26 13:08] LABS: BASOPHILS % (AUTO) 0.3 % (0.0-2.0); EOSINOPHILS # (AUTO) 0.3 /CMM (0.0-0.7); EOSINOPHILS % (AUTO) 2.9 % (0.0-6.0); HEMATOCRIT 32 % (39-51); HEMOGLOBIN 10.1 g/dL (13.5-17.5); LYMPHOCYTES # (AUTO) 0.6 /CMM (0.8-4.8); LYMPHOCYTES % (AUTO) 6.4 % (20.0-44.0); MEAN CORPUSCULAR HEMOGLOBIN 24 PG (26.0-33.0); MEAN CORPUSCULAR HGB CONC 32 g/dl (31.0-36.0); MEAN CORPUSCULAR VOLUME 76 fL (80-96); MONOCYTES # (AUTO) 0.3 /CMM (0.1-1.30); MONOCYTES % (AUTO) 3.6 % (2.0-12.0); NEUTROPHILS # (AUTO) 7.9 /CMM (1.8-8.9); NEUTROPHILS % (AUTO) 86.8 % (43.0-81.0); PLATELET COUNT (AUTO) 321 /CMM (150-450); RDW COEFFICIENT OF VARIATION 23.3 (11.5-15.0); RED BLOOD CELL COUNT(AUTO) 4.22 MIL/uL (4.5-6.0); WHITE BLOOD COUNT (AUTO) 9.1 K/uL (4.3-11.0)
[2017-02-26 13:26] LABS: CALCIUM, SERUM 7.7 mg/dL (8.5-10.1); CARBON DIOXIDE 34 mmol/L (21-32); CHLORIDE 107 mmol/L (98-107); GLUCOSE 95 mg/dL (74-106); POTASSIUM 3.7 mmol/L (3.5-5.1); SODIUM SERUM 147 mmol/L (136-145); UREA NITROGEN, BLOOD 40 mg/dL (7-18)
[2017-02-26] MEDS: ACETAMINOPHEN 650 MG/20.3 ML UDC NG PRN (14:47)
[2017-02-26] MEDS: FLUCONAZOLE (100 MG) 100 MG TABLET GT SCH (16:31)
--- NOTE | 2017-02-26 19:30 | NUR ---
RN INITIAL NOTES RECEIVED THE PT SLEEPING ON BED, AROUSABLE TO PAIN BUT REMAINS OBTUNDED. ON VENT, AC 16, TV 500, 35% FIO2, PEEP 5, 7.5/25@LIP, NO S/S OF RESP DISTRESS. AFIB ON THE MONITOR, HR 80-120'S. MARTIN CATH NOTED. RIGHT NARE NGT WITH NUTREN @ 40MLS/HR, NO RESIDUALS. RIGHT UPPER ARM PICC FLUSHED AND PATENT, NO S/S OF INFILTRATION/INFECTION, DRESSING CDI. BED LOW AND LOCKED, SIDERAILS UP. WILL MONITOR
--- NOTE | 2017-02-26 20:28 | NUR ---
PT RECEIVED INTUBATED WITH 7.5 ETT SECURED AT 25CM AT THE LIP. NO RESP DISTRESS NOTED. PT TOLERATING VENT SETTINGS. SX'D FOR MOD AMT OF THICK MONTES DE OCA SECRETIONS. VENT ALARMS SET AND AUDIBLE. AMBU BAG AT [facility]. VENT PLUGGED INTO RED OUTLET. WILL CONTINUE TO MONITOR. Addendum: 02/26/17 at 2027 by MIROSLAVA GALINDO RT Amended: Links added.
[2017-02-26] MEDS: VANCOMYCIN 0.75 GM in IV D5W 250 ML IV SCH (21:47)
[2017-02-27] VITALS (39 sets, daily range): BP systolic 85–116; BP diastolic 46–78
[2017-02-27] MEDS: ENOXAPARIN SODIUM 80 MG/0.8 ML DISP.SYRIN SQ SCH ×2 (03:27→16:20)
[2017-02-27] MEDS: NUTREN PULMONARY 1,000 ML BAG NG PRN (04:27)
[2017-02-27 04:46] LABS: CALCIUM, SERUM 7.9 mg/dL (8.5-10.1); CARBON DIOXIDE 38 mmol/L (21-32); CHLORIDE 108 mmol/L (98-107); GLUCOSE 116 mg/dL (74-106); POTASSIUM 3.5 mmol/L (3.5-5.1); SODIUM SERUM 150 mmol/L (136-145); UREA NITROGEN, BLOOD 44 mg/dL (7-18)
--- NOTE | 2017-02-27 06:10 | NUR ---
RN CLOSING NOTES PT REMAINS STABLE OF THE MOMENT. ALL DUE MEDS GIVEN, AM CARE PROVIDED. WILL ENDORSE CONTINUITY OF CARE TO AM RN
--- NOTE | 2017-02-27 07:42 | NUR ---
RT PATIENT REC'D ORALLY INTUBATED ON [facility] VENT WITH ORDERED SETTINGS LAURENCE WELL. VENT ALARMS CHECKED + AUDIBLE. SX'D WITH SMALL AMT PALE SEMITHICK SECRETIONS. B/S DIM. DIEZU BAG AT [facility]. CONT CURRENT PLAN OF CARE. Addendum: 02/27/17 at 1338 by NUHA BOCANEGRA RT Amended: Links added.
--- NOTE | 2017-02-27 08:00 | NUR ---
TEMP 102.4 RECTAL MEDICATED WITH TYLENOL, ASSISTED WITH COOLING MEASURES. Addendum: 02/27/17 at 1926 by MAIDA TAY RN BLOOD, SPUTUM, AND URINE CULT SENT
[2017-02-27] MEDS: VALPROIC ACID 250 MG/5 ML UDC PO SCH ×4 (08:26→21:13)
[2017-02-27] MEDS: METOCLOPRAMIDE HCL 10 MG/2 ML VIAL IV SCH ×3 (08:26→18:07)
[2017-02-27] MEDS: ACETAMINOPHEN 650 MG/20.3 ML UDC NG PRN ×2 (08:26→16:19)
[2017-02-27] MEDS: DOCUSATE SODIUM LIQ 100 MG/10 ML UDC NG SCH ×2 (08:26→18:07)
[2017-02-27] MEDS: FOLIC ACID 1 MG TABLET PO SCH (08:26)
[2017-02-27] MEDS: ASPIRIN 81 MG TAB.CHEW PO SCH (08:27)
[2017-02-27] MEDS: CARVEDILOL 6.25 MG TABLET PO SCH ×2 (08:27→21:00)
[2017-02-27] MEDS: PROSOURCE / PROSTAT (PYXIS) 30 ML UDC NG SCH ×2 (08:30→18:11)
[2017-02-27] MEDS: CLOTRIMAZOLE 1% 15 GM TUBE TP SCH ×2 (08:31→18:19)
[2017-02-27] MEDS: MEROPENEM 1 G in IV NS 0.9% 100 ML IV SCH ×2 (10:24→21:06)
--- NOTE | 2017-02-27 16:00 | NUR ---
TEMP 101.4 MEDICATED WITH TYLENOL ASSISTED WITH COOLING MEASURES. NUEL NOTIFIED. PT IS INITIATED ON D51/2 NS @ 75
[2017-02-27] MEDS ORDERED: IV D5/0.45 NACL 1,000 ML IV ONE (16:30)
[2017-02-27] MEDS: FLUCONAZOLE (100 MG) 100 MG TABLET GT SCH (18:11)
--- NOTE | 2017-02-27 19:59 | NUR ---
PT RECEIVED INTUBATED WITH 7.5 ETT SECURED AT 25CM AT THE LIP. NO RESP DISTRESS NOTED. PT TOLERATING VENT SETTINGS. SX'D FOR MOD AMT OF THICK MONTES DE OCA SECRETIONS. VENT ALARMS SET AND AUDIBLE. AMBU BAG AT [facility]. VENT PLUGGED INTO RED OUTLET. WILL CONTINUE TO MONITOR. Addendum: 02/27/17 at 1958 by MIROSLAVA GALINDO RT Amended: Links added.
[2017-02-27] MEDS: VANCOMYCIN 0.75 GM in IV D5W 250 ML IV SCH (21:10)
[2017-02-27] MEDS: METRONIDAZOLE 500MG/ NS 100ML 500 MG in PREMIX 1 EA IV SCH (23:38)
[2017-02-28] VITALS (39 sets, daily range): BP systolic 89–125; BP diastolic 53–85
[2017-02-28] MEDS: ENOXAPARIN SODIUM 80 MG/0.8 ML DISP.SYRIN SQ SCH ×2 (02:04→15:14)
[2017-02-28] MEDS: NUTREN PULMONARY 1,000 ML BAG NG PRN (04:18)
[2017-02-28 05:01] LABS: BASOPHILS % (AUTO) 0.5 % (0.0-2.0); EOSINOPHILS # (AUTO) 0.2 /CMM (0.0-0.7); EOSINOPHILS % (AUTO) 1.8 % (0.0-6.0); HEMATOCRIT 33 % (39-51); HEMOGLOBIN 10.6 g/dL (13.5-17.5); LYMPHOCYTES # (AUTO) 0.7 /CMM (0.8-4.8); LYMPHOCYTES % (AUTO) 7.8 % (20.0-44.0); MEAN CORPUSCULAR HEMOGLOBIN 25 PG (26.0-33.0); MEAN CORPUSCULAR HGB CONC 32 g/dl (31.0-36.0); MEAN CORPUSCULAR VOLUME 76 fL (80-96); MONOCYTES # (AUTO) 0.5 /CMM (0.1-1.30); MONOCYTES % (AUTO) 4.9 % (2.0-12.0); NEUTROPHILS # (AUTO) 8.1 /CMM (1.8-8.9); PLATELET COUNT (AUTO) 358 /CMM (150-450); RDW COEFFICIENT OF VARIATION 24.7 (11.5-15.0); RED BLOOD CELL COUNT(AUTO) 4.33 MIL/uL (4.5-6.0); WHITE BLOOD COUNT (AUTO) 9.5 K/uL (4.3-11.0)
[2017-02-28 05:15] LABS: CALCIUM, SERUM 7.7 mg/dL (8.5-10.1); CARBON DIOXIDE 36 mmol/L (21-32); CHLORIDE 110 mmol/L (98-107); CREATININE 0.9 mg/dL (0.6-1.3); GLUCOSE 120 mg/dL (74-106); POTASSIUM 3.4 mmol/L (3.5-5.1); SODIUM SERUM 151 mmol/L (136-145); UREA NITROGEN, BLOOD 42 mg/dL (7-18)
[2017-02-28] MEDS: METRONIDAZOLE 500MG/ NS 100ML 500 MG in PREMIX 1 EA IV SCH ×3 (05:19→21:40)
[2017-02-28] MEDS ORDERED: POTASSIUM CHLORIDE 20 MEQ POWDER PACKET NG SCH ×2 (09:00→12:30)
[2017-02-28] MEDS: VALPROIC ACID 250 MG/5 ML UDC PO SCH ×4 (09:51→21:11)
[2017-02-28] MEDS: DOCUSATE SODIUM LIQ 100 MG/10 ML UDC NG SCH ×2 (09:51→17:30)
[2017-02-28] MEDS: ACETAMINOPHEN 650 MG/20.3 ML UDC NG PRN ×2 (09:51→17:31)
[2017-02-28] MEDS: METOCLOPRAMIDE HCL 10 MG/2 ML VIAL IV SCH ×3 (09:51→17:30)
[2017-02-28] MEDS: MICAFUNGIN SODIUM 100 MG in IV NS 0.9% 100 ML IV SCH (09:51)
[2017-02-28] MEDS: FOLIC ACID 1 MG TABLET PO SCH (09:52)
[2017-02-28] MEDS: CARVEDILOL 6.25 MG TABLET PO SCH ×2 (09:52→21:00)
[2017-02-28] MEDS: ASPIRIN 81 MG TAB.CHEW PO SCH (09:52)
[2017-02-28] MEDS: PROSOURCE / PROSTAT (PYXIS) 30 ML UDC NG SCH (09:54)
[2017-02-28] MEDS: CLOTRIMAZOLE 1% 15 GM TUBE TP SCH ×2 (09:55→17:32)
[2017-02-28] MEDS: MEROPENEM 1 G in IV NS 0.9% 100 ML IV SCH ×2 (09:55→21:00)
[2017-02-28] MEDS ORDERED: DOSE PER PHARMACY MICAFUNGIN 1 EA XX PRN (10:00)
--- NOTE | 2017-02-28 10:13 | NUR ---
SW contacted pt's daughter Rach and left her a voicemail message inquiring if pt. has a POA. KIANNA requested a call back.
--- NOTE | 2017-02-28 17:30 | NUR ---
PT NOTED TO HAVE AFIB UP TO [address] VERA NOTIFIED, ABG AND CXR ORDERED. PT NOTED TI HAVE TEMP 101.4 COOLING MEASURES INITIATED MEDICATED WITH TYLENOL.
[2017-02-28 17:44] LABS: ABG BASE EXCESS 3.6 mmol/L; ABG OXYGEN SATURATION 97.8 % (92.0-98.5); ABG PCO2 33.5 mmHg (35.0-45.0); ABG PH 7.513 (7.350-7.450); ABG PO2 114.5 mmHg (75.0-100.0); COHb 0.9 % (0.5-1.5); MetHb 0.7 % (0.0-1.5); O2Hb 96.2 % (94.0-97.0); PEEP,BG 5 cm H2O; SITE, ABG Right Femoral; VT, ABG 500 mL
--- NOTE | 2017-02-28 20:32 | NUR ---
received pt from day shift, lethargic, Afib controlled, on the vent, lungs congested no edema, no pulses R foot, s/p thrombectomy, dressing intact, NG to feeding tolerates well, f/c OK output, v/s stable, no pain, pt turned and repositioned q2hrs.
[2017-02-28] MEDS: VANCOMYCIN 0.75 GM in IV D5W 250 ML IV SCH (22:48)
[2017-03-01] VITALS (35 sets, daily range): BP systolic 89–120; BP diastolic 26–87
--- NOTE | 2017-03-01 00:14 | NUR ---
pt is resting in the bed, v/s stable, no pain, tolerates feeding, pt turned and repositioned q2hrs.
[2017-03-01] MEDS: ENOXAPARIN SODIUM 80 MG/0.8 ML DISP.SYRIN SQ SCH ×2 (02:39→16:28)
--- NOTE | 2017-03-01 04:36 | NUR ---
pt is resting in the bed, no acute distress overnight, tolerates feeding, v/s stable, no pain, pt cleaned, changed and repositioned q2hrs.
[2017-03-01 04:53] LABS: CALCIUM, SERUM 7.6 mg/dL (8.5-10.1); CARBON DIOXIDE 36 mmol/L (21-32); CHLORIDE 108 mmol/L (98-107); CREATININE 0.8 mg/dL (0.6-1.3); GLUCOSE 112 mg/dL (74-106); POTASSIUM 3.9 mmol/L (3.5-5.1); SODIUM SERUM 149 mmol/L (136-145); UREA NITROGEN, BLOOD 41 mg/dL (7-18)
[2017-03-01] MEDS: METRONIDAZOLE 500MG/ NS 100ML 500 MG in PREMIX 1 EA IV SCH ×3 (05:04→21:22)
[2017-03-01] MEDS: MICAFUNGIN SODIUM 100 MG in IV NS 0.9% 100 ML IV SCH (08:19)
[2017-03-01] MEDS: ASPIRIN 81 MG TAB.CHEW PO SCH (08:20)
[2017-03-01] MEDS: METOCLOPRAMIDE HCL 10 MG/2 ML VIAL IV SCH ×3 (08:20→16:33)
[2017-03-01] MEDS: VALPROIC ACID 250 MG/5 ML UDC PO SCH ×4 (08:20→21:22)
[2017-03-01] MEDS: FOLIC ACID 1 MG TABLET PO SCH (08:21)
[2017-03-01] MEDS: DOCUSATE SODIUM LIQ 100 MG/10 ML UDC NG SCH ×2 (08:21→16:34)
[2017-03-01] MEDS: CARVEDILOL 6.25 MG TABLET PO SCH ×2 (08:21→21:22)
[2017-03-01] MEDS: Z GUARD REMEDY 2 OZ OINT TP PRN (08:22)
[2017-03-01] MEDS: CLOTRIMAZOLE 1% 15 GM TUBE TP SCH ×2 (08:22→16:38)
[2017-03-01] MEDS: MEROPENEM 1 G in IV NS 0.9% 100 ML IV SCH ×2 (10:16→21:22)
[2017-03-01] MEDS: VANCOMYCIN HCL 0.75 GM in IV D5W 250 ML IV SCH (16:33)
[2017-03-01] MEDS: PROSOURCE / PROSTAT (PYXIS) 30 ML UDC GT SCH (16:36)
--- NOTE | 2017-03-01 17:00 | NUR ---
ICU/RN PM CARE PROVIDED.WOUND DRESSING DONE ORDERED.DUE MEDS ARE GIVEN .TALK THE OF THE PT.SHE DID NOT MAKE ANY DECISIONS ABOUT PATIENT CODE STATUS OR CARE.PT IS FULL CODE AT THIS TIME ,CONTINUE OF CARE. V/S STABLE ,AFEBRILE.NO PAIN REPORTED AT THIS TIME .PT IS INTUBATED.NOT SEDATED.RESPONSIVE ON TOUCH STIMULATIONS,NOT FOLLOWS ANY COMMANDS.SUCTION PROVIDED.REPOSITION FOR COMFORT.
--- NOTE | 2017-03-01 20:12 | NUR ---
PT RECEIVED INTUBATED ON VENT 7.5 ETT AT 25CM AT THE LIP. PT TOLERATING VENT SETTINGS WELL. NO SOB NOTED AT THIS TIME SX SMALL AMOUNT OF THICK MONTES DE OCA SECRETIONS. VENT ALARMS SET AND AUDIBLE. AMBU BAG AT [facility]. VENT PLUGGED INTO RED OUTLET. WILL CONTINUE TO MONITOR. Addendum: 03/01/17 at 2013 by CASEY FREIRE RT Amended: Links added.
--- NOTE | 2017-03-01 20:19 | NUR ---
MILL TENDER WASHING DF RECEIVED PT TO ROOM#259 ICU PT OPENS EYES,DOES NOT FOLLOW COMMANDS,WITHDRAWS TO LIGHT TACTILE STIMULI.PT INTUBATED CURRENT FIO2 OF 30% WITH 02 SAT OF 97-99%.PT UNABLE TO PASS PREVIOUS WEANING TRIALS FAMILY TO DECIDE ON TRACH VS COMFORT CARRE FAMILY MEMBERS REMAIN UNDECIDED.PT WITH AFIB CONTROLLED WITH OCCASIONAL BEATS OF 130-140 UNSUSTAINED PT BEING FOLLOWED BY CARDIOLOGY VSS.EDEMA NOTED. PT WITH RIGHT NARES NGT WITH TUBE FEEDING OF NUTREN @40 ML/HR TOLERATING WELL MIN RESIDUALS NOTED OF 5-10ML. PT WITH MARTIN CATH WITH ADEQUATE URINE OUTPUT. PT S/P RLE VASCULAR SURGERY SITE CLOSED WITH MADIE COVERED WITH DRESSING C/D/I.PT WITH ABSENT PULSES TO RIGHT FOOT VIA DOPPLER/PALPATION.COLOR WHITE/COOL TO TOUCH.PT HAD ARTERY LIGATED BY MD DURING SURGERY PT HAD CODE BLUE SEE VASCULAR SGY NOTES. MD AWARE OF PULSELESS RIGHT FOOT NO INTERVENTIONS PLANNED AT THIS TIME. POOR PROGNOSIS DISCUSSED WITH FAMILY.
[2017-03-01] MEDS: MORPHINE SULFATE INJ 2 MG/ML DISP.SYRIN IV PRN (23:20)
--- NOTE | 2017-03-01 23:23 | NUR ---
PASSENGER BOOKING CLERK DF ADVISED BY UNIT MT PT,S AFIB RATE OF 135-150BPM. PT BASELINE TODAY AFIB RATE OF 120-130,S. PT ASSESSED WITH FACIAL GRIMACING,RESTLESS MOVING HEAD SIDE TO SIDE. PT REPOSITIONED FOR COMFORT.ORAL/ETT SUCTIONING PROVIDED. PT ADMIN MORPHINE 2MG IVP PRN PAIN S/S.WILL MONITOR FOR EFFECT.
[2017-03-02] VITALS (36 sets, daily range): BP systolic 92–126; BP diastolic 56–82
[2017-03-02] MEDS: ENOXAPARIN SODIUM 80 MG/0.8 ML DISP.SYRIN SQ SCH ×2 (03:09→14:01)
[2017-03-02] MEDS: NUTREN PULMONARY 1,000 ML BAG NG PRN (04:35)
[2017-03-02 04:50] LABS: CALCIUM, SERUM 7.9 mg/dL (8.5-10.1); CARBON DIOXIDE 33 mmol/L (21-32); CHLORIDE 112 mmol/L (98-107); CREATININE 1.1 mg/dL (0.6-1.3); GLUCOSE 133 mg/dL (74-106); POTASSIUM 4.1 mmol/L (3.5-5.1); SODIUM SERUM 150 mmol/L (136-145); UREA NITROGEN, BLOOD 46 mg/dL (7-18)
[2017-03-02] MEDS: METRONIDAZOLE 500MG/ NS 100ML 500 MG in PREMIX 1 EA IV SCH (06:12)
[2017-03-02] MEDS: MICAFUNGIN SODIUM 100 MG in IV NS 0.9% 100 ML IV SCH (08:25)
[2017-03-02] MEDS: DOCUSATE SODIUM LIQ 100 MG/10 ML UDC NG SCH ×2 (08:31→16:28)
[2017-03-02] MEDS: VALPROIC ACID 250 MG/5 ML UDC PO SCH ×4 (08:31→21:04)
[2017-03-02] MEDS: ASPIRIN 81 MG TAB.CHEW PO SCH (08:32)
[2017-03-02] MEDS: PROSOURCE / PROSTAT (PYXIS) 30 ML UDC GT SCH ×3 (08:32→16:27)
[2017-03-02] MEDS: METOCLOPRAMIDE HCL 10 MG/2 ML VIAL IV SCH ×3 (08:32→16:27)
[2017-03-02] MEDS: FOLIC ACID 1 MG TABLET PO SCH (08:32)
[2017-03-02] MEDS: CARVEDILOL 6.25 MG TABLET PO SCH ×2 (08:32→21:00)
[2017-03-02] MEDS: CLOTRIMAZOLE 1% 15 GM TUBE TP SCH ×2 (08:33→16:28)
[2017-03-02] MEDS: MEROPENEM 1 G in IV NS 0.9% 100 ML IV SCH ×2 (10:00→21:04)
[2017-03-02] MEDS: VANCOMYCIN HCL 0.75 GM in IV D5W 250 ML IV SCH (10:58)
[2017-03-02] MEDS: METRONIDAZOLE 500 MG TABLET GT SCH ×2 (12:25→21:07)
[2017-03-02] MEDS: ACETAMINOPHEN 650 MG/20.3 ML UDC NG PRN (16:28)
--- NOTE | 2017-03-02 20:33 | NUR ---
ENTRY LEVEL SALES CONSULTANT DF RECEIVED PT TO ROOM#259 ICU PT OPENS EYES,DOES NOT FOLLOW COMMANDS,WITHDRAWS TO LIGHT TACTILE STIMULI.PT INTUBATED CURRENT FIO2 OF 30% WITH 02 SAT OF 97-99%.PT UNABLE TO PASS PREVIOUS WEANING TRIALS FAMILY TO DECIDE ON TRACH VS COMFORT CARRE FAMILY MEMBERS REMAIN UNDECIDED.PT WITH AFIB CONTROLLED WITH OCCASIONAL BEATS OF 130-140 UNSUSTAINED PT BEING FOLLOWED BY CARDIOLOGY VSS.EDEMA NOTED. PT WITH RIGHT NARES NGT WITH TUBE FEEDING OF NUTREN @40 ML/HR TOLERATING WELL MIN RESIDUALS NOTED OF 5-10ML. PT WITH MARTIN CATH WITH ADEQUATE URINE OUTPUT. PT S/P RLE VASCULAR SURGERY SITE CLOSED WITH MADIE COVERED WITH DRESSING C/D/I.PT WITH ABSENT PEDAL PULSES TO RIGHT FOOT VIA DOPPLER/PALPATION.COLOR WHITE/COOL TO TOUCH.PT HAD ARTERY LIGATED BY MD DURING SURGERY PT HAD CODE BLUE SEE VASCULAR SGY NOTES. MD AWARE OF PULSELESS RIGHT FOOT NO INTERVENTIONS PLANNED AT THIS TIME. POOR PROGNOSIS DISCUSSED WITH FAMILY.
--- NOTE | 2017-03-02 23:38 | NUR ---
PT RECEIVED INTUBATED ON VENT 7.5 ETT AT 25CM AT THE LIP. PT TOLERATING VENT SETTINGS WELL. NO SOB NOTED AT THIS TIME SX SMALL AMOUNT OF THICK MONTES DE OCA SECRETIONS. VENT ALARMS SET AND AUDIBLE. AMBU BAG AT [facility]. VENT PLUGGED INTO RED OUTLET. WILL CONTINUE TO MONITOR. Addendum: 03/02/17 at 2339 by EDDIE JACOBO RT Amended: Links added.
[2017-03-03] VITALS (36 sets, daily range): BP systolic 97–126; BP diastolic 58–86
[2017-03-03] MEDS: ENOXAPARIN SODIUM 80 MG/0.8 ML DISP.SYRIN SQ SCH ×2 (03:54→13:53)
[2017-03-03] MEDS: VANCOMYCIN HCL 0.75 GM in IV D5W 250 ML IV SCH ×2 (03:57→21:37)
[2017-03-03] MEDS: METRONIDAZOLE 500 MG TABLET GT SCH ×3 (04:02→21:03)
[2017-03-03] MEDS: NUTREN PULMONARY 1,000 ML BAG NG PRN (04:02)
[2017-03-03 04:54] LABS: CALCIUM, SERUM 7.3 mg/dL (8.5-10.1); CARBON DIOXIDE 32 mmol/L (21-32); CHLORIDE 115 mmol/L (98-107); GLUCOSE 129 mg/dL (74-106); POTASSIUM 3.9 mmol/L (3.5-5.1); SODIUM SERUM 152 mmol/L (136-145); UREA NITROGEN, BLOOD 51 mg/dL (7-18)
[2017-03-03] MEDS: VALPROIC ACID 250 MG/5 ML UDC PO SCH ×4 (08:30→21:37)
[2017-03-03] MEDS: METOCLOPRAMIDE HCL 10 MG/2 ML VIAL IV SCH ×3 (08:30→17:12)
[2017-03-03] MEDS: DOCUSATE SODIUM LIQ 100 MG/10 ML UDC NG SCH ×2 (08:30→17:12)
[2017-03-03] MEDS: PROSOURCE / PROSTAT (PYXIS) 30 ML UDC GT SCH ×3 (08:31→17:12)
[2017-03-03] MEDS: MICAFUNGIN SODIUM 100 MG in IV NS 0.9% 100 ML IV SCH (08:31)
[2017-03-03] MEDS: FOLIC ACID 1 MG TABLET PO SCH (08:32)
[2017-03-03] MEDS: CARVEDILOL 6.25 MG TABLET PO SCH ×2 (08:32→21:00)
[2017-03-03] MEDS: CLOTRIMAZOLE 1% 15 GM TUBE TP SCH ×2 (08:32→17:13)
[2017-03-03] MEDS: ASPIRIN 81 MG TAB.CHEW PO SCH (08:32)
--- NOTE | 2017-03-03 09:19 | NUR ---
BABY SITTER INFORMED CHARGE NURSE REGARDING INSERTION OF MIDLINE DUE TO POSSIBLE INFECTION FROM CURRENT PICC LINE D/C ORDER OF PICC LINE AFTER MIDLINE ISERTION WAS ORDERED BY RASHID LION PICC LINE NURSE Addendum: 03/03/17 at 0922 by JENNA RAMOS RN PRESENT PICC LINE TIP IS FOR CULTURE PER RASHID
[2017-03-03] MEDS: MEROPENEM 1 G in IV NS 0.9% 100 ML IV SCH ×2 (09:40→21:03)
[2017-03-03] MEDS: IV D5W 1,000 ML IV PRN (10:21)
--- NOTE | 2017-03-03 13:40 | NUR ---
BILINGUAL HR GENERALIST SEEN AND EXAMINED BY DR. ESCUDERO ORDERED TO GIVE DIGOXIN 0.125 MG TO CONTROL HEART RATE MONITORED CLOSELY FAMILY CONFERENCE WITH PHYSICIANS WILL PUSH THROUGH ON TUESDAY 03/06 IF FAMILY WANTS AGGRESSIVE TREATMENT
[2017-03-03] MEDS: DIGOXIN INJ 0.5 MG/2 ML AMPUL IV SCH ×2 (17:12→23:07)
--- NOTE | 2017-03-03 19:00 | NUR ---
RN INITIAL NOTES RECEIVED THE PATIENT OBTUNDED ON BED, OPENS EYES ONLY. ON VENT AC 16, TV 500, 30% FIO2, PEEP 5, 7.5/24@LIP, SATURATING WELL. CURRENTLY UNCONTROLLED AFIB ON THE MONITOR, HR 80-120'S. MARTIN CATH INTACT. RIGHT NARE NGT WITH NUTREN FEEDING @ 40MLS/HR, NO RESIDUALS, TOLERATING WELL. LEFT UPPER ARM MIDLINE WITH D5W @ 50MLS/HR, FLUSHED AND PATENT, NO S/S OF INFILTRATION/INFECTION, DRESSING CDI. BED LOW AND LOCKED, SIDERAILS UP. WILL MONITOR
[2017-03-04] VITALS (37 sets, daily range): BP systolic 93–133; BP diastolic 59–96
--- NOTE | 2017-03-04 01:22 | NUR ---
PT TOLERATING VENT SETTINGS WELL. NO SOB NOTED AT THIS TIME SX SMALL AMOUNT OF THICK MONTES DE OCA SECRETIONS. VENT ALARMS SET AND AUDIBLE. AMBU BAG AT [facility]. VENT PLUGGED INTO RED OUTLET. WILL CONTINUE TO MONITOR. Addendum: 03/04/17 at 0122 by EDDIE JACOBO RT Amended: Links added.
[2017-03-04] MEDS: ENOXAPARIN SODIUM 80 MG/0.8 ML DISP.SYRIN SQ SCH ×2 (02:09→15:12)
[2017-03-04] MEDS: METRONIDAZOLE 500 MG TABLET GT SCH ×3 (05:06→21:17)
[2017-03-04] MEDS: IV D5W 1,000 ML IV PRN (05:07)
[2017-03-04] MEDS: NUTREN PULMONARY 1,000 ML BAG NG PRN (05:15)
[2017-03-04 05:19] LABS: CALCIUM, SERUM 6.9 mg/dL (8.5-10.1); CARBON DIOXIDE 31 mmol/L (21-32); CHLORIDE 112 mmol/L (98-107); CREATININE 0.9 mg/dL (0.6-1.3); GLUCOSE 120 mg/dL (74-106); POTASSIUM 3.4 mmol/L (3.5-5.1); SODIUM SERUM 149 mmol/L (136-145); UREA NITROGEN, BLOOD 41 mg/dL (7-18)
--- NOTE | 2017-03-04 06:10 | NUR ---
RN CLOSING NOTES PT REMAINS STABLE OF THE MOMENT. ALL DUE MEDS GIVEN, AM CARE PROVIDED. WILL ENDORSE CONTINUITY OF CARE TO AM RN
--- NOTE | 2017-03-04 07:35 | NUR ---
CHEMISTRY LABORATORY TECHNICIAN RECEIVED THE PATENT FROM THE PREVIOUS SHIFT. PATIENT IS IN BED. OBTUNDED NEURO STATUS. AFIB ON MONITOR. VENT SETTINGS REVIEWED AND VERIFIED. ORALLY INTUBATED. AFEBRILE. WILL CONTINUE TO MONITOR AND PROVIDE CARE.
[2017-03-04] MEDS: CLOTRIMAZOLE 1% 15 GM TUBE TP SCH ×2 (08:23→17:33)
[2017-03-04] MEDS: VALPROIC ACID 250 MG/5 ML UDC PO SCH ×4 (08:28→21:17)
[2017-03-04] MEDS: PROSOURCE / PROSTAT (PYXIS) 30 ML UDC GT SCH ×3 (08:28→17:38)
[2017-03-04] MEDS: MICAFUNGIN SODIUM 100 MG in IV NS 0.9% 100 ML IV SCH (08:29)
[2017-03-04] MEDS: METOCLOPRAMIDE HCL 10 MG/2 ML VIAL IV SCH ×3 (08:29→17:37)
[2017-03-04] MEDS: CARVEDILOL 6.25 MG TABLET PO SCH ×2 (08:29→21:17)
[2017-03-04] MEDS: ASPIRIN 81 MG TAB.CHEW PO SCH (08:29)
[2017-03-04] MEDS: FOLIC ACID 1 MG TABLET PO SCH (08:29)
[2017-03-04] MEDS: DOCUSATE SODIUM LIQ 100 MG/10 ML UDC NG SCH ×2 (08:29→17:00)
[2017-03-04] MEDS: MEROPENEM 1 G in IV NS 0.9% 100 ML IV SCH ×2 (09:44→21:16)
--- NOTE | 2017-03-04 11:53 | NUR ---
WOUND CARE CONSULT PATIENT SEEN AND PATIENT PRESENTS WITH OPEN DEEP TISSUE INJURY IN EVOLUTION. PLEASE SEE CLINICAL PROGRAM CONSULTANT ASSESSMENT IN [facility] FOR TODAY. RECOMMENDATIONS MADE, ACNP IN AGREEMENT WITH TREATMENT PLAN. PATIENT CONTINUES TO HAVE MULTIPLE CO-MORBIDITIES AT THIS TIME. CONTINUE ALL PREVENTION MEASURES PER CURRENT PLAN OF CARE. ALL DISCUSSED WITH NURSING STAFF AT THE BEDSIDE. Addendum: 03/04/17 at 1202 by MARIPOSA LINN WNDNU Amended: Links added.
[2017-03-04] MEDS ORDERED: HYDROGEL DRESSING 90 GM TUBE TP PRN (12:00)
[2017-03-04] MEDS ORDERED: POTASSIUM CHLORIDE 20 MEQ POWDER PACKET PO SCH (12:00)
--- NOTE | 2017-03-04 12:00 | NUR ---
Social service consult requested by RASHID Cortez for a family meeting to discuss aggressiveness of care. Pt. and pt's family is Tristanian speaking. KIANNA contacted RASHID Cortez and Dr. Trujillo to inquire if they are available to meet tomorrow at 8AM per Diego's request. Dr. Trujillo informed KIANNA he is available tomorrow via phone after 8:30AM. Diego informed KIANNA he is available at 8:30AM. KIANNA contacted ICU road builderYAMILE Montgomery informing her that the doctors are available tomorrow at 8:30AM and Dr. Trujillo via phone. YAMILE Montgomery informed KIANNA, she will speak to the family today once they arrive regarding tomorrow's meeting and will follow up with KIANNA. Addendum: 03/04/17 at 1206 by CRISTOBAL HUTCHISON KIANNA received a call from wound YAMILE Patel inquiring if meeting is confirmed for tomorrow since pt. has another wound on his back. KIANNA informed YAMILE Patel, the meeting is not confirmed since we are awaiting confirmation from family if they are available tomorrow.
--- NOTE | 2017-03-04 12:48 | NUR ---
WOUND CARE CONSULT REGISTERED NURSE STEP DOWN ASSESSMENT OF THE POST OP INCISION TO THE RIGHT CALF. RECOMMEND KEEP CLEAN AND DRY AND COVER WITH ABD PAD, WRAP LOOSELY WITH KERLIX DAILY AND PRN SOILING. ACNP IN AGREEMENT WITH TREATMENT PLAN AT THIS TIME. ALL DISCUSSED WITH NURSING STAFF. Addendum: 03/04/17 at 1252 by MARIPOSA LINN WNDNU Amended: Links added.
[2017-03-04] MEDS: HYDROGEL DRESSING 90 GM TUBE TP SCH (13:54)
[2017-03-04] MEDS: DIGOXIN 0.125 MG TABLET PO SCH (13:58)
[2017-03-04] MEDS ORDERED: POTASSIUM CHLORIDE 20 MEQ POWDER PACKET GT ONE (14:30)
--- NOTE | 2017-03-04 15:02 | NUR ---
SW received a call from ICU CREmily Helm informing SW that family has confirmed for a meeting with the doctors for tomorrow March 05, at 8:30AM. KIANNA confirmed with DATA BASE DESIGN ANALYST MIGUEL that family has confirmed the meeting for tomorrow as well.
[2017-03-04] MEDS: VANCOMYCIN HCL 0.75 GM in IV D5W 250 ML IV SCH (16:50)
[2017-03-04] MEDS: LACTOBACILLUS RHAMNOSUS GG 1 EACH CAP.SPRINK GT SCH (17:37)
--- NOTE | 2017-03-04 19:00 | NUR ---
RN INITIAL NOTES RECEIVED THE PATIENT OBTUNDED ON BED, OPENS EYES ONLY. ON VENT AC 16, TV 500, 30% FIO2, PEEP 5, 7.5/24@LIP, SATURATING WELL. CURRENTLY CONTROLLED AFIB ON THE MONITOR, HR 80-90's. MARTIN CATH INTACT. RIGHT NARE NGT WITH NUTREN FEEDING @ 40MLS/HR, NO RESIDUALS, TOLERATING WELL. LEFT UPPER ARM MIDLINE WITH D5W @ 50MLS/HR, FLUSHED AND PATENT, NO S/S OF INFILTRATION/INFECTION, DRESSING CDI. BED LOW AND LOCKED, SIDERAILS UP. WILL MONITOR
--- NOTE | 2017-03-04 20:33 | NUR ---
PT RECEIVED INTUBATED WITH 7.5 ETT SECURED AT 25CM AT THE LIP. NO RESP DISTRESS NOTED. PT TOLERATING VENT SETTINGS. SX'D FOR SML AMT OF THICK MONTES DE OCA SECRETIONS. VENT ALARMS SET AND AUDIBLE. AMBU BAG AT [facility]. VENT PLUGGED INTO RED OUTLET. WILL CONTINUE TO MONITOR. Addendum: 03/04/17 at 2032 by MIROSLAVA GALINDO RT Amended: Links added.
[2017-03-05] VITALS (36 sets, daily range): BP systolic 96–127; BP diastolic 52–88
[2017-03-05] MEDS: ENOXAPARIN SODIUM 80 MG/0.8 ML DISP.SYRIN SQ SCH ×2 (02:38→17:28)
[2017-03-05] MEDS: IV D5W 1,000 ML IV PRN (02:38)
[2017-03-05 04:52] LABS: CALCIUM, SERUM 7.4 mg/dL (8.5-10.1); CREATININE 0.8 mg/dL (0.6-1.3); GLUCOSE 110 mg/dL (74-106); UREA NITROGEN, BLOOD 37 mg/dL (7-18)
[2017-03-05 04:56] LABS: CARBON DIOXIDE 31 mmol/L (21-32); CHLORIDE 111 mmol/L (98-107); DIGOXIN 0.37 ng/mL (0.90-2.00); POTASSIUM 4.1 mmol/L (3.5-5.1); SODIUM SERUM 146 mmol/L (136-145)
[2017-03-05] MEDS: METRONIDAZOLE 500 MG TABLET GT SCH ×3 (05:22→21:23)
--- NOTE | 2017-03-05 06:10 | NUR ---
RN CLOSING NOTES PT REMAINS STABLE OF THE MOMENT. ALL DUE MEDS GIVEN, AM CARE PROVIDED. WILL ENDORSE CONTINUITY OF CARE TO AM RN
[2017-03-05] MEDS: VALPROIC ACID 250 MG/5 ML UDC PO SCH ×4 (07:43→21:23)
--- NOTE | 2017-03-05 08:00 | NUR ---
HIGH LIFT OPERATOR NOTES: RECEIVED THE PATIENT IN BED, OPENS EYES AND RESPONSIVE TO PORTUGUESE SPEAKING FAMILY MEMBERS, HOWEVER DUE TO WEAKNESS UNABLE TO MOVE. ON VENT AC 16, TV 500, 30% FIO2, PEEP 5, 7.5/24@LIP, SATURATING WELL. CURRENTLY CONTROLLED AFIB ON THE MONITOR, HR 80-90's. MARTIN CATH INTACT. RIGHT NARE NGT WITH NUTREN FEEDING @ 40MLS/HR, NO RESIDUALS, TOLERATING WELL. LEFT UPPER ARM MIDLINE WITH D5W @ 50MLS/HR, FLUSHED AND PATENT, NO S/S OF INFILTRATION/INFECTION, DRESSING CDI. PATIENT NOTED RIGHT RIGHT LEG SURGICAL WOUND, DRESSING CLEAN DRY AND INTACT, AND SACRAL DTI. PATIENT KEPT CLEAN AND DRY, TURNED AND REPOSITIONED AND EXTREMITIES OFFLOADED. . BED LOW AND LOCKED, SIDERAILS UP. SAFETY MAINTAINED. WILL MONITOR
[2017-03-05] MEDS: METOCLOPRAMIDE HCL 10 MG/2 ML VIAL IV SCH ×3 (08:18→17:25)
[2017-03-05] MEDS: DOCUSATE SODIUM LIQ 100 MG/10 ML UDC NG SCH ×2 (08:18→17:25)
[2017-03-05] MEDS: CARVEDILOL 6.25 MG TABLET PO SCH ×2 (08:18→21:00)
[2017-03-05] MEDS: LACTOBACILLUS RHAMNOSUS GG 1 EACH CAP.SPRINK GT SCH ×2 (08:18→17:25)
[2017-03-05] MEDS: FOLIC ACID 1 MG TABLET PO SCH (08:18)
[2017-03-05] MEDS: ASPIRIN 81 MG TAB.CHEW PO SCH (08:18)
[2017-03-05] MEDS: MICAFUNGIN SODIUM 100 MG in IV NS 0.9% 100 ML IV SCH (08:19)
[2017-03-05] MEDS: CLOTRIMAZOLE 1% 15 GM TUBE TP SCH ×2 (08:20→17:26)
[2017-03-05] MEDS: HYDROGEL DRESSING 90 GM TUBE TP SCH (08:20)
[2017-03-05] MEDS: PROSOURCE / PROSTAT (PYXIS) 30 ML UDC GT SCH ×3 (08:21→17:28)
--- NOTE | 2017-03-05 08:30 | NUR ---
ECONOMIC HISTORY TEACHER NOTE: FAMILY AT BEDSIDE, FAMILY MEETING WITH CRISTOBAL MARTIN (KIANNA), DR. MARY AND CHARGE NURSE FANNY. ONGOING MONITORING.
[2017-03-05] MEDS: VANCOMYCIN HCL 0.75 GM in IV D5W 250 ML IV SCH (09:31)
[2017-03-05] MEDS: MEROPENEM 1 G in IV NS 0.9% 100 ML IV SCH ×2 (09:31→21:23)
--- NOTE | 2017-03-05 11:46 | NUR ---
Family meeting was held this morning at 8:30AM with pt's daughter, pt's , Dr. Luna, SUPERVISOR COMPOUNDING AND FINISHING Diego, ICU CRN Valentina and SW. Plan of care was discussed along with discussion about trach and peg placement. Family will notify within in 24 hours if they would like trach/peg placement.
[2017-03-05] MEDS: DIGOXIN 0.125 MG TABLET PO SCH (12:11)
[2017-03-05] MEDS: NUTREN PULMONARY 1,000 ML BAG NG PRN (13:40)
--- NOTE | 2017-03-05 16:00 | NUR ---
RENAL TECHNICIAN NOTES: PATIENT RESTING COMFORTABLY IN BED, VSS, INTUBATED, SUCTIONED, ORAL CARE PROVIDED. BED BATH GIVEN, LINEN CHANGE. WOUND CARE RENDERED, PATIENT TURNED AND REPOSITIONED AND EXTREMITIES OFFLOADED. SAFETY MAINTAINED. ONGOING MONITORING.
--- NOTE | 2017-03-05 19:10 | NUR ---
RN INITIAL NOTES RECEIVED THE PATIENT ASLEEP ON BED, AROUSABLE TO NAME AND TOUCH BUT UNABLE TO FOLLOW COMMANDS. ON VENT AC 16, TV 500, 30% FIO2, PEEP 5, 7.5/24@LIP, SATURATING WELL. CURRENTLY CONTROLLED AFIB ON THE MONITOR, HR 80-90's. MARTIN CATH INTACT. RIGHT NARE NGT WITH NUTREN FEEDING @ 40MLS/HR, NO RESIDUALS, TOLERATING WELL. LEFT UPPER ARM MIDLINE TKO, FLUSHED AND PATENT, NO S/S OF INFILTRATION/INFECTION, DRESSING CDI. BED LOW AND LOCKED, SIDERAILS UP. WILL MONITOR
[2017-03-06] VITALS (33 sets, daily range): BP systolic 93–121; BP diastolic 55–87
[2017-03-06] MEDS: METRONIDAZOLE 500 MG TABLET GT SCH ×3 (04:11→20:42)
[2017-03-06] MEDS: VANCOMYCIN HCL 0.75 GM in IV D5W 250 ML IV SCH ×2 (04:11→21:12)
[2017-03-06] MEDS: ENOXAPARIN SODIUM 80 MG/0.8 ML DISP.SYRIN SQ SCH ×2 (04:12→17:10)
[2017-03-06 04:39] LABS: CALCIUM, SERUM 7.7 mg/dL (8.5-10.1); CARBON DIOXIDE 32 mmol/L (21-32); CHLORIDE 107 mmol/L (98-107); CREATININE 0.8 mg/dL (0.6-1.3); GLUCOSE 104 mg/dL (74-106); POTASSIUM 3.7 mmol/L (3.5-5.1); SODIUM SERUM 141 mmol/L (136-145); UREA NITROGEN, BLOOD 36 mg/dL (7-18)
--- NOTE | 2017-03-06 07:35 | NUR ---
PHARMACY ANCILLARY RECEIVED PATIENT FROM THE PREVIOUS SHIFT. PATIENT IS IN BED. RESTING COMFORTABLY. NO ACUTE RESP DISTRESS NOTED. EVEN AND NON LABORED BREATHING PATTERN. AFEBRILE. AFIB ON MONITOR. PATIENT'S EYES ARE OPEN BUT SEEM TO BE ABLE TO TRACK AT THIS TIME. MARTIN CATH DRAINING URINE TO GRAVITY. TURNED AND REPOSITIONED FOR COMFORT AND WOUND PREVENTION. WILL CONTINUE TO MONITOR AND PROVIDE CARE.
[2017-03-06] MEDS: HYDROGEL DRESSING 90 GM TUBE TP SCH (09:55)
[2017-03-06] MEDS: CLOTRIMAZOLE 1% 15 GM TUBE TP SCH ×2 (09:55→17:07)
[2017-03-06] MEDS: ASPIRIN 81 MG TAB.CHEW PO SCH (09:58)
[2017-03-06] MEDS: METOCLOPRAMIDE HCL 10 MG/2 ML VIAL IV SCH ×3 (09:59→17:10)
[2017-03-06] MEDS: CARVEDILOL 6.25 MG TABLET PO SCH ×2 (09:59→20:42)
[2017-03-06] MEDS: DOCUSATE SODIUM LIQ 100 MG/10 ML UDC NG SCH ×2 (09:59→17:00)
[2017-03-06] MEDS: LACTOBACILLUS RHAMNOSUS GG 1 EACH CAP.SPRINK GT SCH ×2 (09:59→17:10)
[2017-03-06] MEDS: MICAFUNGIN SODIUM 100 MG in IV NS 0.9% 100 ML IV SCH (09:59)
[2017-03-06] MEDS: MEROPENEM 1 G in IV NS 0.9% 100 ML IV SCH (09:59)
[2017-03-06] MEDS: FOLIC ACID 1 MG TABLET PO SCH (09:59)
[2017-03-06] MEDS: VALPROIC ACID 250 MG/5 ML UDC PO SCH ×4 (09:59→21:12)
[2017-03-06] MEDS: PROSOURCE / PROSTAT (PYXIS) 30 ML UDC GT SCH ×3 (09:59→17:07)
[2017-03-06] MEDS: DIGOXIN 0.125 MG TABLET PO SCH (12:12)
--- NOTE | 2017-03-06 12:47 | NUR ---
KIANNA received a call from pt's daughter Rach informing SW that the family is leaning toward a trach and peg placement and will contact ICU with a confirmed decision. Rach informed KIANNA that she found out that pt. has Medicare Part B only and would like to inquire about apply Part A for the pt. KIANNA informed Rach she will transfer her call to Roxana at x [phone] who can assist her with insurance after this phone call. Rach also was inquiring about rehab placement once pt. has a trach. KIANNA informed Rach, she will have top case assemblermanager solution her regarding placement. KIANNA transferred Rach's call to [facility] x [phone]. KIANNA met with top case assembler Aurelio and gave him Rach contact and requested him to call her regarding questions about placement. Aurelio called Rach to discuss placement.
--- NOTE | 2017-03-06 13:50 | NUR ---
SKOOG PATCHING MACHINE OPERATOR RN ATTEMPTED TO CONTACT THE DAUGHTER. DAUGHTER DID NOT SALES TEACHER THE PHONE. MESSAGE LEFT.
[2017-03-06] MEDS: NUTREN PULMONARY 1,000 ML BAG NG PRN (18:20)
--- NOTE | 2017-03-06 20:15 | NUR ---
RT RECEIVED PT ORALLY INTUBATED W/ 7.5 ETT MARKED 25CM AT THE LIP. PT ON AC 16 500 30% +5 VENT SETTINGS. VENT ALARMS CHECKED AND AUDIBLE. VENT PLUGGED IN RED OUTLET. AMBU BAG NOTED. B/S BILATERAL. FLOOR INSPECTOR DONE. SX WITH MOD THK YELLOW/WHITE SECRETIONS. NO SIGNS OF RESP DISTRESS WILL CONTINUE TO MONITOR T/O SHIFT. Addendum: 03/06/17 at 2017 by MEMO AUGUSTE RT Amended: Links added.
[2017-03-07] VITALS (38 sets, daily range): BP systolic 83–123; BP diastolic 55–78
[2017-03-07] MEDS: METRONIDAZOLE 500 MG TABLET GT SCH ×4 (05:32→20:42)
[2017-03-07] MEDS: ENOXAPARIN SODIUM 80 MG/0.8 ML DISP.SYRIN SQ SCH ×2 (05:33→18:18)
--- NOTE | 2017-03-07 07:35 | NUR ---
RT PT RECEIVED ORALLY INTUBATED WITH A 7.5 ETT SECURED AT 25CM AT THE LIP LINE ON THE VENT. PT IS CURRENTLY SEDATED AT THIS TIME, BUT RESPONDS TO STIMULI. VENT ALARMS ARE SET AND AUDIBLE WITH BVM BY BEDSIDE. VENT IS PLUGGED INTO RED OUTLET. NO RESPIRATORY DISTRESS NOTED AT THIS TIME, WILL CONTINUE TO MONITOR. Addendum: 03/07/17 at 1836 by JABIER IFSH RT Amended: Links added.
[2017-03-07] MEDS: FOLIC ACID 1 MG TABLET PO SCH (09:00)
[2017-03-07] MEDS: PROSOURCE / PROSTAT (PYXIS) 30 ML UDC GT SCH ×3 (09:00→18:18)
[2017-03-07] MEDS: DOCUSATE SODIUM LIQ 100 MG/10 ML UDC NG SCH ×2 (10:11→18:16)
[2017-03-07] MEDS: VALPROIC ACID 250 MG/5 ML UDC PO SCH ×4 (10:11→21:37)
[2017-03-07] MEDS: ASPIRIN 81 MG TAB.CHEW PO SCH (10:11)
[2017-03-07] MEDS: ACETAMINOPHEN 650 MG/20.3 ML UDC NG PRN (10:11)
[2017-03-07] MEDS: METOCLOPRAMIDE HCL 10 MG/2 ML VIAL IV SCH ×3 (10:12→18:17)
[2017-03-07] MEDS: LACTOBACILLUS RHAMNOSUS GG 1 EACH CAP.SPRINK GT SCH ×2 (10:12→18:17)
[2017-03-07] MEDS: CARVEDILOL 6.25 MG TABLET PO SCH ×2 (10:13→20:42)
[2017-03-07] MEDS: HYDROGEL DRESSING 90 GM TUBE TP SCH (10:37)
[2017-03-07] MEDS: CLOTRIMAZOLE 1% 15 GM TUBE TP SCH ×2 (10:38→18:20)
[2017-03-07] MEDS: LINEZOLID RTU BAG 600 MG in PREMIX 1 EA IV SCH ×2 (10:39→20:41)
[2017-03-07 11:18] LABS: BASOPHILS % (AUTO) 0.1 % (0.0-2.0); EOSINOPHILS # (AUTO) 0.4 /CMM (0.0-0.7); EOSINOPHILS % (AUTO) 5.1 % (0.0-6.0); HEMATOCRIT 36 % (39-51); HEMOGLOBIN 11.6 g/dL (13.5-17.5); LYMPHOCYTES # (AUTO) 0.7 /CMM (0.8-4.8); LYMPHOCYTES % (AUTO) 8.5 % (20.0-44.0); MEAN CORPUSCULAR HEMOGLOBIN 25 PG (26.0-33.0); MEAN CORPUSCULAR HGB CONC 32 g/dl (31.0-36.0); MEAN CORPUSCULAR VOLUME 78 fL (80-96); MONOCYTES # (AUTO) 0.2 /CMM (0.1-1.30); MONOCYTES % (AUTO) 2.3 % (2.0-12.0); NEUTROPHILS # (AUTO) 6.9 /CMM (1.8-8.9); PLATELET COUNT (AUTO) 264 /CMM (150-450); RDW COEFFICIENT OF VARIATION 26.9 (11.5-15.0); WHITE BLOOD COUNT (AUTO) 8.2 K/uL (4.3-11.0)
[2017-03-07 11:39] LABS: CALCIUM, SERUM 7.8 mg/dL (8.5-10.1); CARBON DIOXIDE 25 mmol/L (21-32); CHLORIDE 110 mmol/L (98-107); CREATININE 0.7 mg/dL (0.6-1.3); GLUCOSE 127 mg/dL (74-106); SODIUM SERUM 143 mmol/L (136-145); UREA NITROGEN, BLOOD 33 mg/dL (7-18)
[2017-03-07 12:02] LABS: BAND % (MANUAL) 3 % (0.0-5.0); EOSINOPHILS % (MANUAL) 7 % (0-4); LYMPHOCYTES % (MANUAL) 5 % (16-48); MONOCYTES % (MANUAL) 3 % (0-11.0); NEUTROPHILS % (MANUAL) 82 (42-76)
[2017-03-07] MEDS: DIGOXIN 0.125 MG TABLET PO SCH ×2 (13:27→13:29)
--- NOTE | 2017-03-07 14:00 | NUR ---
MIGUEL COLLADO SPOKE AT LENGTH TO DAUGHTER. SHE WILL BE GETTING BACK ABOUT DNR DECISION.
[2017-03-07] MEDS ORDERED: FUROSEMIDE 20 MG/2 ML VIAL IV ONE (16:30)
[2017-03-07] MEDS: NUTREN PULMONARY 1,000 ML BAG NG PRN (18:19)
--- NOTE | 2017-03-07 20:00 | NUR ---
TRAINING DEVELOPMENT DIRECTOR - NOTES - RECEIVED THE PATIENT ASLEEP ON BED, AROUSABLE TO NAME AND TOUCH BUT UNABLE TO FOLLOW COMMANDS. ON VENT AC 16, TV 500, 30% FIO2, PEEP 5, 7.5/24@LIP, SATURATING WELL. CURRENTLY CONTROLLED AFIB ON THE MONITOR, HR 80-90's. MARTIN CATH INTACT. RIGHT NARE NGT WITH NUTREN FEEDING @ 40 MLS/HR, NO RESIDUALS, TOLERATING WELL. LEFT UPPER ARM MIDLINE TKO, FLUSHED AND PATENT, NO S/S OF INFILTRATION/INFECTION, DRESSING CDI. BED LOW AND LOCKED, SIDERAILS UP. WILL MONITOR
[2017-03-08] VITALS (36 sets, daily range): BP systolic 92–120; BP diastolic 54–86
[2017-03-08] MEDS: METRONIDAZOLE 500 MG TABLET GT SCH ×3 (04:31→21:21)
[2017-03-08] MEDS: ENOXAPARIN SODIUM 80 MG/0.8 ML DISP.SYRIN SQ SCH (04:32)
--- NOTE | 2017-03-08 07:05 | NUR ---
RN INITIAL NOTES RECEIVED PT INTUBATED. ETT [facility] PLACE[facility] WITH FF SETTINGS: AC 16, TV500, FI02 30%< PEEP+5. HOB ELEVATED. PT ON A.FIB BEDSIDE MONITOR. NGT, RIGHT NARE, IN PLACE. TOLERATING ON NUTRIN AT 40ML/HR. NO RESIDUAL NOTED. MATT MIDLINE IN PLACE. FC IN PLACE. NO HEMATURIA NOTED. BLE ELEVATED. PT CLEAN AND DRY. REPOSITIONED. WILL CONTINUE TO MONITOR.
[2017-03-08] MEDS: ASPIRIN 81 MG TAB.CHEW PO SCH (08:18)
[2017-03-08] MEDS: DOCUSATE SODIUM LIQ 100 MG/10 ML UDC NG SCH ×2 (08:18→16:19)
[2017-03-08] MEDS: LINEZOLID RTU BAG 600 MG in PREMIX 1 EA IV SCH (08:18)
[2017-03-08] MEDS: FOLIC ACID 1 MG TABLET PO SCH (08:18)
[2017-03-08] MEDS: CARVEDILOL 6.25 MG TABLET PO SCH ×2 (08:18→21:20)
[2017-03-08] MEDS: LACTOBACILLUS RHAMNOSUS GG 1 EACH CAP.SPRINK GT SCH ×2 (08:18→16:19)
[2017-03-08] MEDS: METOCLOPRAMIDE HCL 10 MG/2 ML VIAL IV SCH ×3 (08:18→16:19)
[2017-03-08] MEDS: VALPROIC ACID 250 MG/5 ML UDC PO SCH ×4 (08:19→21:20)
[2017-03-08] MEDS: PROSOURCE / PROSTAT (PYXIS) 30 ML UDC GT SCH ×3 (08:19→16:19)
[2017-03-08] MEDS: CLOTRIMAZOLE 1% 15 GM TUBE TP SCH ×2 (08:21→16:20)
[2017-03-08] MEDS: HYDROGEL DRESSING 90 GM TUBE TP SCH (08:21)
--- NOTE | 2017-03-08 09:00 | NUR ---
RN NOTES SEEN AND EXAMINED BY DR. MENJIVAR. AWARE OF PT'S CURRENT STATUS. AWAITING FOR BEKAH'S (DTR) DECISION REGARDING PLAN OF CARE (TRACH/PEG). WILL FF UP.
--- NOTE | 2017-03-08 09:15 | NUR ---
RN NOTES SEEN AND EXAMINED BY MIGUEL COLLADO NP. PT REMAINS INTUBATED, ON MECH VENT. TOLERATING WELL. NO RESPIRATORY DISTRESS NOTED. CALLED BEKAH (JAK) TO FF UP WITH DECISION ON TRACH/PEG OR COMFORT CARE #[phone]. LEFT A MESSAGE. WILL CONTINUE TO MONITOR PT.
[2017-03-08] MEDS: DIGOXIN 0.125 MG TABLET PO SCH (12:10)
--- NOTE | 2017-03-08 13:40 | NUR ---
RN NOTES SEEN AND EXAMINED BY DR. CANALES. AWAITING FOR DTR'S DECISION REGARDING CARE. PT REMAINS INTUBATED. TOLERATING MECH VENT. WILL MONITOR.
[2017-03-08] MEDS: NUTREN PULMONARY 1,000 ML BAG NG PRN (16:27)
--- NOTE | 2017-03-08 16:30 | NUR ---
RN NOTES MIGUEL COLLADO NP DISCUSSED ONGOING TX AND PLAN OF CARE WITH PT'S DTR BEKAH) AND AT BEDSIDE. EXPLAINED ADVANTAGES AND DISADVANTAGES OF OPTIONS. FAMILY DECIDED TO CHANGE CODE STATUS TO DNR AND START COMFORT CARE ON 03/11/17. ALSO SUTURE GAUGER DISCUSSED ATB USE WITH ALPHONSE NAVARRO NP (ID). PER ID, WILL CONTINUE USE OF ATB AT THIS TIME. FAMILY VERBALIZED UNDERSTANDING. PT KEPT COMFORTABLE. PT CONTINUE TO MONITOR.
--- NOTE | 2017-03-08 20:00 | NUR ---
RN NOTES RECEIVED PX AROUSABLE BUT NOT FOLLOWING COMMANDS, WITH ETT TAPED AND SECURED AT 24 LEVEL WITH CUFF INTACT; ON TF, TOLERATED WELL; SUCTIONED ORALLY AND VIA ETT; WITH MARTIN CATH TAPED TO THIGH TO BAG BY GRAVITY; WITH DRESSING ON RIGHT LEG AROUND KNEE AREA TO UPPER CALF CLEAN DRY INTACT; NO PULSES PALPATED ON POST TIBIALIS, RIGHT LEG COLD TO TOUCH COMPARED TO LEFT LEG, WITH CAP REFILL AROUND 3 SEC, RIGHT ALSO NOTED PALER; WITH BLISTERS ON MIDFOOT AND 3RD AND 4TH TOES; A FIB ON MONITOR, NO S1S2 APPRECIATED.
[2017-03-08] MEDS: LINEZOLID 600 MG TABLET GT SCH (21:21)
--- NOTE | 2017-03-08 23:46 | NUR ---
RN NOTES CONDITION AND NEURO STATUS UNCHANGED; REPOSITIONED, SUCTIONED ORALLY AND VIA ETT. A FIB ON MONITOR WITH CONTROLLED RATE.
[2017-03-09] VITALS (37 sets, daily range): BP systolic 93–122; BP diastolic 50–77
--- NOTE | 2017-03-09 05:08 | NUR ---
RN NOTES CONDITION UNCHANGED; CLEANED PX AND CHANGED GOWN AND BED LINENS; NO BM, NOTED; CHANGED WOUND DRESSINGS PER MD ORDER; ORAL AND MARTIN CARE RENDERED; PROCEDURES TOLERATED; REPOSITIONED AND SUCTIONED ORALLY AND VIA ETT.
--- NOTE | 2017-03-09 06:08 | NUR ---
RN NOTES CLOSING CONDITION UNCHANGED; VITAL SIGNS WNL; REPOSITIONED; NO NEW SKIN BREAKDOWN; IV ACCESS PATENT AND FLUSHABLE; NO WORSENING OF S/SX OF RIGHT LOWER LEG. WILL ENDORSE TO NEXT RN.
--- NOTE | 2017-03-09 07:10 | NUR ---
RN INITIAL NOTES RECEIVED PT INTUBATED. ETT [facility] PLACE[facility] FF SETTINGS: AC 16, TV500, FI02 30%< PEEP+5. HOB ELEVATED. NO SIGNS OD PAIN NOTED. NO SIGNS OF RESPIRATORY DISTRESS NOTED. NGT, RIGHT NARE, IN PLACE. TOLERATING GTF WELL. NO RESIDUAL NOTED. MATT MIDLINE IN PLACE. FC IN PLACE. NO HEMATURIA NOTED. BLE ELEVATED. PT CLEAN AND DRY. PT COMFORTABLE. REPOSITIONED. WILL CONTINUE TO MONITOR.
[2017-03-09] MEDS: DOCUSATE SODIUM LIQ 100 MG/10 ML UDC NG SCH ×2 (08:14→16:58)
[2017-03-09] MEDS: FOLIC ACID 1 MG TABLET PO SCH (08:14)
[2017-03-09] MEDS: VALPROIC ACID 250 MG/5 ML UDC PO SCH ×4 (08:14→22:15)
[2017-03-09] MEDS: LINEZOLID 600 MG TABLET GT SCH ×2 (08:15→22:15)
[2017-03-09] MEDS: METOCLOPRAMIDE HCL 10 MG/2 ML VIAL IV SCH ×3 (08:15→16:58)
[2017-03-09] MEDS: ASPIRIN 81 MG TAB.CHEW PO SCH (08:15)
[2017-03-09] MEDS: HYDROGEL DRESSING 90 GM TUBE TP SCH (08:15)
[2017-03-09] MEDS: CARVEDILOL 6.25 MG TABLET PO SCH ×2 (08:15→22:18)
[2017-03-09] MEDS: LACTOBACILLUS RHAMNOSUS GG 1 EACH CAP.SPRINK GT SCH ×2 (08:15→16:58)
[2017-03-09] MEDS: CLOTRIMAZOLE 1% 15 GM TUBE TP SCH ×2 (08:16→16:58)
[2017-03-09] MEDS: PROSOURCE / PROSTAT (PYXIS) 30 ML UDC GT SCH ×3 (08:17→16:58)
--- NOTE | 2017-03-09 09:30 | NUR ---
RN NOTES SEEN AND EXAMINED BY MIGUEL COLLDAO NP. AWARE OF CURRENT STATUS. REMAINS INTUBATED, ON MECH VENT. NO RESPIRATORY DISTRESS NOTED. NO SOB NOTED. KEPT HOB ELEVATED. TX PROVIDED ORDERED. KEPT COMFORTABLE. FAMILY DECIDED TO PUT PT ON HOSPICE CARE ON SATURDAY. WILL CONTINUE TO MONITOR.
[2017-03-09] MEDS: ENOXAPARIN SODIUM 80 MG/0.8 ML DISP.SYRIN SQ SCH ×2 (09:48→22:17)
[2017-03-09] MEDS: DIGOXIN 0.125 MG TABLET PO SCH (12:09)
[2017-03-09] MEDS: NUTREN PULMONARY 1,000 ML BAG NG PRN (16:58)
--- NOTE | 2017-03-09 18:45 | NUR ---
RN CLOSING NOTES PT REMAINS INTUBATED, ON MECH VENT. NO RESPIRATORY DISTRESS NOTED. KEPT HOB ELEVATED. NO SIGNS OF PAIN NOTED. KEPT CLEAN AND DRY. REPOSITIONED Q2. TX ORDERED. BLE ELEVATED. KEPT COMFORTABLE. NO SIGNIFICANT CHANGE NOTED.
--- NOTE | 2017-03-09 20:00 | NUR ---
ASSUME CARE OF PATIENT. PT. INTUBATED, VENT DEPENDENT, ADEQUATE SATURATION 98% SEE INITIAL ASSESSMENT.
--- NOTE | 2017-03-09 21:51 | NUR ---
PT RECEIVED INTUBATED ON VENT. NO RESP DISTRESS NOTED. ETT IS 7.5 AT 25CM AT THE LIP. VENT ALARMS SET AND AUDIBLE. ARPITA NARAYAN AT [facility]. WILL CONTINUE TO MONITOR. Addendum: 03/09/17 at 2155 by MIROSLAVA GALINDO RT Amended: Links added.
[2017-03-10] VITALS (35 sets, daily range): BP systolic 91–114; BP diastolic 57–91
--- NOTE | 2017-03-10 00:34 | NUR ---
NUT SORTER OPERATOR DF RECEIVED PT TO ROOM#259 ASSUMED CARE OF PT @ 0030. PHYSICAL ASSESSMENT COMPLETE NO ACUTE CHANGES OBSERVED FROM PREVIOUS ASSESSMENT. PT OBTUNDED, NON INTERACTIVE.INTUBATED FAILED WEANING TRIALS POC PT CODE STATUS DNR PER NOTES PT WILL START HOSPICE CARE ON 03/11/17. NO S/S OF DISCOMFORT NOTED. VSS. NAD NOTED.
--- NOTE | 2017-03-10 00:34 | NUR ---
SBAR DONE . REPORT GIVEN TO ERNST OVALLE. PATIENT STATUS UNCHANGED. NO ACUTE DISTRESS NOTED.
--- NOTE | 2017-03-10 07:44 | NUR ---
RT PATIENT REC'D ORALLY INTUBATED ON [facility] VENT WITH SETTINGS SET BY MD LAURENCE ORNELAS. VENT ALARMS CHECKED + AUDIBLE. VENT PLUGGED INTO RED OUTLET. PATIENT SUCTIONED WITH SMALL AMT OF PALE YELLOW SEMITHICK SECRETIONS. MARILOU LOOMIS B/S HEARD. ARPITA NARAYAN AT [facility]. Addendum: 03/10/17 at 0849 by NUHA BOCANEGRA RT Amended: Links added.
[2017-03-10] MEDS: VALPROIC ACID 250 MG/5 ML UDC PO SCH ×4 (08:11→21:26)
[2017-03-10] MEDS: LACTOBACILLUS RHAMNOSUS GG 1 EACH CAP.SPRINK GT SCH ×2 (08:11→17:08)
[2017-03-10] MEDS: METOCLOPRAMIDE HCL 10 MG/2 ML VIAL IV SCH ×3 (08:11→17:08)
[2017-03-10] MEDS: PROSOURCE / PROSTAT (PYXIS) 30 ML UDC GT SCH ×3 (08:11→17:11)
[2017-03-10] MEDS: LINEZOLID 600 MG TABLET GT SCH ×2 (08:11→21:25)
[2017-03-10] MEDS: DOCUSATE SODIUM LIQ 100 MG/10 ML UDC NG SCH ×2 (08:11→17:00)
[2017-03-10] MEDS: ASPIRIN 81 MG TAB.CHEW PO SCH (08:12)
[2017-03-10] MEDS: FOLIC ACID 1 MG TABLET PO SCH (08:12)
[2017-03-10] MEDS: CARVEDILOL 6.25 MG TABLET PO SCH ×2 (08:12→21:26)
[2017-03-10] MEDS: CLOTRIMAZOLE 1% 15 GM TUBE TP SCH ×2 (08:13→17:09)
[2017-03-10] MEDS: HYDROGEL DRESSING 90 GM TUBE TP SCH (08:13)
[2017-03-10] MEDS: ENOXAPARIN SODIUM 80 MG/0.8 ML DISP.SYRIN SQ SCH ×2 (08:14→21:27)
[2017-03-10] MEDS: DIGOXIN 0.125 MG TABLET PO SCH (12:01)
[2017-03-10] MEDS: NUTREN PULMONARY 1,000 ML BAG NG PRN (15:50)
--- NOTE | 2017-03-10 21:49 | NUR ---
PT RECEIVED INTUBATED ON VENT. NO RESP DISTRESS NOTED. ETT IS 7.5 AT 25CM AT THE LIP. VENT ALARMS SET AND AUDIBLE. ARPITA NARAYAN AT [facility]. WILL CONTINUE TO MONITOR. Addendum: 03/10/17 at 2149 by MIROSLAVA GALINDO RT Amended: Links added.
[2017-03-11] VITALS (26 sets, daily range): BP systolic 75–119; BP diastolic 50–83
--- NOTE | 2017-03-11 07:45 | NUR ---
ICU/RN PT IS INTUBATED ON THE VENT AC MODE.OFF SEDATION RESPONSIVE ON PAIN STIMULATIONS.IV-LEFT UPPER ARM MIDLINE. NG TUBE INFUSING ORDERED.NO RESIDUAL NOTED.F/C DRAINING WITH MISAEL URINE.WOUNDS ON THE RIGHT LOWER LEG COVERED WITH DRESSING.REDNESS ON THE LOWER BACK COVERED WITH MEPILEX.PT IS COMFORT CARE WAITING FOR FAMILY DECISION TO BE EXTUBATED.SUCTION PROVIDED.REPOSITION FOR COMFORT.
[2017-03-11] MEDS: VALPROIC ACID 250 MG/5 ML UDC PO SCH ×2 (08:25→11:42)
[2017-03-11] MEDS: DOCUSATE SODIUM LIQ 100 MG/10 ML UDC NG SCH (08:25)
[2017-03-11] MEDS: METOCLOPRAMIDE HCL 10 MG/2 ML VIAL IV SCH ×2 (08:25→12:43)
[2017-03-11] MEDS: FOLIC ACID 1 MG TABLET PO SCH (08:25)
[2017-03-11] MEDS: ASPIRIN 81 MG TAB.CHEW PO SCH (08:25)
[2017-03-11] MEDS: LINEZOLID 600 MG TABLET GT SCH (08:26)
[2017-03-11] MEDS: LACTOBACILLUS RHAMNOSUS GG 1 EACH CAP.SPRINK GT SCH (08:26)
[2017-03-11] MEDS: CARVEDILOL 6.25 MG TABLET PO SCH (08:26)
[2017-03-11] MEDS: ENOXAPARIN SODIUM 80 MG/0.8 ML DISP.SYRIN SQ SCH (08:26)
[2017-03-11] MEDS: Z GUARD REMEDY 2 OZ OINT TP PRN (08:27)
[2017-03-11] MEDS: HYDROGEL DRESSING 90 GM TUBE TP SCH (08:27)
[2017-03-11] MEDS: CLOTRIMAZOLE 1% 15 GM TUBE TP SCH (08:28)
[2017-03-11] MEDS: PROSOURCE / PROSTAT (PYXIS) 30 ML UDC GT SCH ×2 (08:29→12:43)
[2017-03-11] MEDS: DIGOXIN 0.125 MG TABLET PO SCH (12:43)
[2017-03-11] MEDS ORDERED: LORAZEPAM INJ 2 MG/ML VIAL IV PRN (15:00)
[2017-03-11] MEDS ORDERED: MORPHINE SULFATE INJ 4 MG/ML DISP.SYRIN IV ONE (15:00)
[2017-03-11] MEDS ORDERED: MORPHINE SULFATE PF DRIP 250 MG in IV D5W 240 ML IV PRN (15:00)
[2017-03-11] MEDS ORDERED: SCOPOLAMINE HBR 1 EA PATCH.TD72 TD SCH (15:00)
--- NOTE | 2017-03-11 17:00 | NUR ---
ICU/RN MORPHINE DRIP STARTED ORDERED. ATIVAN 1 MG AND MORPHINE SULPHATE 5 MG IV PUSH GIVEN ORDERED.NG TUBE REMOVED.PT IS NPO. PM CARE PROVIDED.WOUND DRESSING DONE ORDERED.SUCTION PROVIDED.REPOSITION FOR COMFORT.FAMILY AT BEDSIDE.
--- NOTE | 2017-03-11 18:10 | NUR ---
pt extubated placed on n/c per md order
--- NOTE | 2017-03-11 18:10 | NUR ---
ICU/RN PT IS TERMINALLY EXTUBATED,PLACED ON 2 L N/C.FAMILY AT BED SIDE.
--- NOTE | 2017-03-11 19:30 | NUR ---
RN INITIAL NOTE RECEIVED PT IN NO ACUTE DISTRESS IN BED. PT IS ON COMFORT CARE WITH MORPHINE DRIP @ 5MG/HR WITH A TITRATABLE MAX OF 25MG/HR. PT IS RESTING COMFORTABLY IN BED. PT IS ON O2 VIA NC @ 2LPM AND TOLERATING WELL. PT HAS F/C THAT IS CLEAN DRY INTACT AND PATENT WITH ORANGE COLORED URINE DRAINING. PT HAS ROSAURA MIDLINE THAT IS CLEAN DRY INTACT AND PATENT WITH MORPHINE INFUSING VIA AUDIT TECH PUMP. BED IN LOW LOCK POSITION WITH RAILS UP X 2. CALL LIGHT WITHIN REACH AND ALL SAFETY MEASURES ENSURED AND CARRIED OUT. WILL CONTINUE TO MONITOR PT. PT POSSIBLE TRANSFER TO [facility].
[2017-03-12] VITALS: BP 85/62
--- NOTE | 2017-03-12 01:05 | NUR ---
RN NOTE ENDORSED REPORT TO ARABELLA FOR CONTINUITY OF CARE.
--- NOTE | 2017-03-12 01:35 | NUR ---
ADMISSION NOTE RECEIVED PT COMING FORM ICU WITH ORDER FOR COMFORT CARE, PT IS ON A MORPHINE DRIP VIA MECHANICAL DESIGN DRAFTER PUMP AT 5MG/HR, PT IS COMFORTABLE SHOWING NO SIGNS OF PAIN OR DISTRESS, VITAL SIGNS ARE WNL, RECEIVED EXTRA MORPHINE BAG FROM ICU WITH ENCLOSED DOCUMENTATION, GIVEN TO CHARGE NURSE FOR PROPER NARCOTIC STORAGE, PT IS CLEAN/DRY, WILL CONTINUE TO MONITOR CLOSELY TO ASSURE PT'S COMFORT.
--- NOTE | 2017-03-12 01:44 | NUR ---
RN NOTE ENDORSED MORPHINE DRIP VIA TPN AND EXTRA MORPHINE BAG WITH DOCUMENTATION TO ARABELLA OVALLE IN 2 WEST.
[2017-03-12] MEDS ORDERED: KEY,NONCONTROL,TO KEEP IN PYXI 1 EA MC ONE (01:47)
--- NOTE | 2017-03-12 02:30 | NUR ---
DURING ROUNDS PT NOTED TO HAVE LABORED BREATHING, MORPHINE DRIP INCREASED TO 7MG/HR, WILL CONTINUE TO MONITOR PT CLOSELY.
--- NOTE | 2017-03-12 04:50 | NUR ---
DURING FREQUENT ROUNDS PATIENT NOTED TO HAVE , NO CHEST RAISE NOTED AND NO HEART BEAT HEARD ON AUSCULTATION, CHARGE NURSE NOTIFIED TO CONFIRM FINDING, AFTER AUSCULTATION AND PALPATION IT WAS CONFIRMED THAT THERE WAS NO HEART BEAT, MD AND NURSING COMMISSION SALES ASSOCIATE WILL BE NOTIFIED.
--- NOTE | 2017-03-12 06:15 | NUR ---
REMAINING MORPHINE FROM DRIP HAS BEEN PROPERLY DISPOSED OF WITH CHARGE NURSE WITNESS.
--- NOTE | 2017-03-12 06:20 | NUR ---
BODY PICKED UP BY SECURITY AND ESCORTED BY MARY ELLEN MONTENEGRO.
[2017-03-13] MEDS ORDERED: KEY,NONCONTROL,TO KEEP IN PYXI 1 EA MC ONE ×2 (14:54→15:10)
== END 2017-03-12 05:00 | disposition expired | DRG 710 ==
LOC: ER 13:56 → TELE-TD 16:05 → ICU 02-18 15:29 → TELE1 03-09 23:40 → ICU 03-10 00:08 → MED 03-12 01:32
PROVIDERS: ADMIT Internal Medicine; ATTEND Internal Medicine
PROC: 05H533Z Insertion of Infusion Device into Right Subclavian Vein, Percutaneous Approach (ICD-10-PCS; principal; 2017-02-17)
PROC: 0BH17EZ Insertion of Endotracheal Airway into Trachea, Via Natural or Artificial Opening (ICD-10-PCS; 2017-02-18)
PROC: 04CK0ZZ Extirpation of Matter from Right Femoral Artery, Open Approach (ICD-10-PCS; 2017-02-18)
PROC: 04CM0Z6 (ICD-10-PCS; 2017-02-18)
PROC: 5A1955Z Respiratory Ventilation, Greater than 96 Consecutive Hours (ICD-10-PCS; 2017-02-18)
PROC: 02HV33Z Insertion of Infusion Device into Superior Vena Cava, Percutaneous Approach (ICD-10-PCS; 2017-02-19)
PROC: 05H633Z Insertion of Infusion Device into Left Subclavian Vein, Percutaneous Approach (ICD-10-PCS; 2017-03-03)
DX: A41.9 Sepsis, unspecified organism (principal); I21.4 Non-ST elevation (NSTEMI) myocardial infarction; N17.0 Acute kidney failure with tubular necrosis; J69.0 Pneumonitis due to inhalation of food and vomit; J96.01 Acute respiratory failure with hypoxia; R65.21 Severe sepsis with septic shock; G92 Toxic encephalopathy; E43 Unspecified severe protein-calorie malnutrition; M31.4 Aortic arch syndrome [Takayasu]; I50.23 Acute on chronic systolic (congestive) heart failure; B49 Unspecified mycosis; I95.89 Other hypotension; I13.0 Hypertensive heart and chronic kidney disease with heart failure and stage 1 through stage 4 chronic kidney disease, or unspecified chronic kidney disease; L89.159 Pressure ulcer of sacral region, unspecified stage; J15.6 Pneumonia due to other Gram-negative bacteria; G93.1 Anoxic brain damage, not elsewhere classified; D68.59 Other primary thrombophilia; I48.91 Unspecified atrial fibrillation; I47.2 Ventricular tachycardia; F03.90 Unspecified dementia, unspecified severity, without behavioral disturbance, psychotic disturbance, mood disturbance, and anxiety; Z95.1 Presence of aortocoronary bypass graft; Z87.440 Personal history of urinary (tract) infections; Z51.5 Encounter for palliative care; Z79.899 Other long term (current) drug therapy; Z66 Do not resuscitate; F32.9 Major depressive disorder, single episode, unspecified; R33.8 Other retention of urine; N40.1 Benign prostatic hyperplasia with lower urinary tract symptoms; M85.80 Other specified disorders of bone density and structure, unspecified site; I70.0 Atherosclerosis of aorta; I73.9 Peripheral vascular disease, unspecified; I42.9 Cardiomyopathy, unspecified; I25.2 Old myocardial infarction; I25.10 Atherosclerotic heart disease of native coronary artery without angina pectoris; F09 Unspecified mental disorder due to known physiological condition; F41.9 Anxiety disorder, unspecified; E86.0 Dehydration; E87.0 Hyperosmolality and hypernatremia; E87.2 Acidosis; E87.6 Hypokalemia; G40.909 Epilepsy, unspecified, not intractable, without status epilepticus; B37.49 Other urogenital candidiasis; D64.9 Anemia, unspecified; E78.5 Hyperlipidemia, unspecified; Z86.718 Personal history of other venous thrombosis and embolism; K21.9 Gastro-esophageal reflux disease without esophagitis; N18.9 Chronic kidney disease, unspecified; J98.11 Atelectasis; N40.0 Benign prostatic hyperplasia without lower urinary tract symptoms; S01.412A Laceration without foreign body of left cheek and temporomandibular area, initial encounter; X58.XXXA Exposure to other specified factors, initial encounter; M62.261 Nontraumatic ischemic infarction of muscle, right lower leg; Y92.89 Other specified places as the place of occurrence of the external cause; I97.88 Other intraoperative complications of the circulatory system, not elsewhere classified; Y92.234 Operating room of hospital as the place of occurrence of the external cause; L89.621 Pressure ulcer of left heel, stage 1; L89.611 Pressure ulcer of right heel, stage 1; Z99.11 Dependence on respirator [ventilator] status; D75.89 Other specified diseases of blood and blood-forming organs; I99.8 Other disorder of circulatory system; R65.20 Severe sepsis without septic shock; I97.711 Intraoperative cardiac arrest during other surgery; Y83.2 Surgical operation with anastomosis, bypass or graft as the cause of abnormal reaction of the patient, or of later complication, without mention of misadventure at the time of the procedure; Y71.1 Therapeutic (nonsurgical) and rehabilitative cardiovascular devices associated with adverse incidents
CPT/HCPCS: 31720; 36415; 36569; 36600; 70450-TC; 71010-TC; 80048-TC; 80053-TC; 80061-TC; 80076-TC; 80162-TC; 80164-TC; 80202-TC; 81000-TC; 82150-TC; 82803-TC; 83540-TC; 83605-TC; 83690-TC; 83735-TC; 83935-TC; 84100-TC; 84300-TC; 84484-TC; 85025-TC; 85610-TC; 85730-TC; 86850-TC; 87040-TC; 87070-TC; 87081-TC; 87086-TC; 87186-TC; 88305-TC; 92611-TC; 93307-TC; 94003-TC; 94762-TC; 94799-TC; 95819-TC; A4216; A4606; A6248; A6253; A6402; A6403; C1751; C1757; J0171; J1160; J1450; J1642; J1644; J1650; J1940; J2001; J2020; J2060; J2185; J2248; J2270; J2274; J2405; J2543; J2704; J2765; J3010; J3370; J3480; J3490; J7030; J7040; J7050; J7060; J7070; P9047; Q9967; Z7610